=== PATIENT | female | born 1965 | race Caucasian/White ===

== ENCOUNTER 2024-03-14 12:28 | Emergency (ER) | payer OTHER, SELFPAY ==
--- NOTE | ~2024-03-14 | CT_ITS ---
EXAMINATION: CT abdomen pelvis wo con DATE: 03/14/2024 16:21 INDICATION: Recent liver transplant. Assess for bile leak. TECHNIQUE: Computed tomography (CT) of the abdomen and pelvis was performed without intravenous contr ast. Automated exposure control and iterative reconstruction technique were employed. The dose-length product was 714.69 mGy-cm. COMPARISON: None FINDINGS: Small right pleural effusion with discoid and round atelectasis at the right lung base. Calcified nod ules in the right lower lobe consistent with old granulomatous disease. Left lung bases clear. Mild c ardiomegaly. There are some mitral annular calcific lesion. No pericardial effusion. Postoperative ch anges in right upper quadrant consistent with reported relatively recent liver transplant and associa yeison cholecystectomy. No suggestion of intrahepatic biliary ductal dilation. Splenomegaly measuring 13 .6 cm maximal craniocaudal length and 15.8 cm maximal AP length. There are paraesophageal and left sp lenorenal collaterals which along with the splenomegaly is consistent with portal venous hypertension which may have preceded the liver transplantation. Pancreas, bilateral adrenal glands and kidneys ar e normal. There is a small bowel anastomosis in the left upper quadrant. No abnormal bowel wall thick ening or obstruction. Normal appendix. Bladder is normal. The uterus is not identified and has likely been surgically resected. There is a minimal amount of ascites along the caudal margin of the right hepatic lobe with small amount of ascites in the deep pelvis. No abscess or free intraperitoneal gas. No pathologically enlarged abdominal or pelvic lymphadenopathy. Small hemangioma at the right side o f the L3 vertebral body. Mild to moderate lumbar and lower thoracic spondylosis. IMPRESSION: 1. Postoperative change of relatively recent hepatic transplantation with minimal perihepatic ascites and small amount of ascites in the deep pelvis. Although the amount of fluid is relatively small cou ld not exclude a bile leak. If there is continued clinical concern consider HIDA scan for further juan m luation. 2. Small right pleural effusion with moderate associated atelectasis at the right lung base. 3. Splenomegaly and paraesophageal and splenorenal collaterals consistent with portal venous hyperten demetrio which may have preceded the transplantation. Reviewed, dictated and finalized at location A. IMPRESSION: 1. Postoperative change of relatively recent hepatic transplantation with minim al perihepatic ascites and small amount of ascites in the deep pelvis. Although the amount of fluid is relatively small could not exclude a bile leak. If ther e is continued clinical concern consider HIDA scan for further evaluation. 2. Small right pleural effusion with moderate associated atelectasis at the rig ht lung base. 3. Splenomegaly and paraesophageal and splenorenal collaterals consistent with portal venous hypertension which may have preceded the transplantation.
[2024-03-14 12:34] VITALS: BP 133/76; PULSE 89; RESP 20; TEMP 36.7; O2SAT 100
[2024-03-14 13:29] LABS: Basophils Absolute Auto 0.1 K/mm3 (0.0-0.1); Basophils Percent Auto 0.8 % (0.2-1.2); Eosinophils Absolute Auto 0.2 K/mm3 (0-0.3); Eosinophils Percent Auto 2.5 % (0-4.4); Hematocrit 31.9 % (37.0-47.0); Hemoglobin 10.3 g/dL (12.0-15.0); Immature Granulocyte Absolute 0.07 K/mm3 (0.00-0.031); Immature Granulocyte Percent A 0.9 % (0-0.5); Lymphocytes Absolute Auto 1.21 K/mm3 (0.9-3.2); Lymphocytes Percent Auto 15.4 % (18.3-44.2); Mean Corpuscular HGB Conc 32.3 g/dl (32-36); Mean Corpuscular Hemoglobin 30.5 pg (26-34); Mean Corpuscular Volume 94.4 fl (80-100); Mean Platelet Volume 10.4 fl (7.4-10.4); Monocytes Absolute Auto 0.5 K/mm3 (0.1-0.6); Monocytes Percent Auto 6.4 % (2.6-8.5); Neutrophils Absolute Auto 5.8 K/mm3 (1.3-6.7); Platelet Count Result 144 k/mm3 (150-375); Red Blood Count 3.38 M/mm3 (4.2-5.4); Red Cell Distribution Width 15.3 % (11.5-14.5); White Blood Count 7.9 K/mm3 (4.5-10.0)
[2024-03-14 13:48] LABS: Alanine Aminotransferase 33 U/L (6-35); Albumin Level 4.4 g/dL (3.5-5.1); Alkaline Phosphatase 81 U/L (38-126); Anion Gap 10 mmol/L (4-12); Aspartate Amino Transferase 47 U/L (14-36); Bilirubin,Total 1.2 mg/dL (0.2-1.3); Blood Urea Nitrogen 21 mg/dL (7-17); Calcium 9.8 mg/dL (8.4-10.2); Carbon Dioxide 20 mmol/L (22-30); Chloride 109 mmol/L (98-107); Estimated CRCL calculation 46 ml/min; Estimated Glomerular Filt Rate 46; Glucose 100 mg/dL (65-110); Lipase 68 U/L (23-300); Potassium 3.8 mmol/L (3.4-5.0); Sodium 139 mmol/L (137-145)
[2024-03-14 13:57] LABS: Appearance Urine Cloudy (Clear); Bacteria Urine 1+ /hpf; Bilirubin Urine 1+ (Negative); Blood Urine Negative (Negative); Color Urine Dark Yellow (Yellow); Glucose Urine UA Negative (Negative); Ketones Urine Trace mg/dL (Negative); Leukocyte Esterase Ur Trace LEU/UL (Negative); Need Manual Microscopic Reviewed; Nitrate Urine Negative (Negative); Protein Urine 1+ mg/dL (Negative); Specific Grav Ur 1.022 (1.001-1.035); Squamous Epithelial Cell Urine Moderate /hpf (Few); WBC Urine 0-5 /hpf (0-3); pH Urine 5.5 (5.0-9.0)
[2024-03-14 13:59] LABS: Add Urine Microscopic? YES
--- NOTE | 2024-03-14 14:06 | ED.NAVMDI ---
HPI - Nausea/Vomiting/Diarrhea General Chief complaint: Nausea/Vomiting/Diarrhea Stated complaint: nausea vomitting, headache Time Seen by Provider: 03/14/24 12:55 Source: patient and family ( ) Mode of arrival: ambulatory Limitations: no limitations History of Present Illness HPI Narrative: 59-year-old female presents with multiple symptoms. She is status post liver transplant approximately 5 weeks ago at [facility] due to alpha 1 anti trypsin deficiency. Ever since discharge she has had significant nausea such that he been thinking about food or seeeing it on the television makes her nauseated. Yesterday she had 2 episodes of nonbloody nonbilious emesis as well as other episodes of dry heaving. She has also had headache for the past 3 days, particularly behind her left eye. She did take an oxycodone this morning that helped. no sick contacts Or house members with similar symptoms. No acute vision changes. No photophobia or phonophobia. Patient is not on anticoagulation. Patient denies any trauma. She has had decreased p.o. intake. She had been told she was not to take ibuprofen as she has some underlying kidney dysfunction and did require temporary dialysis in the posttransplant period but not currently. She denies any fevers. She has been taking her immunosuppression medication which includes tacrolimus, mycophenolate, Bactrim, and prednisone although she states she did not take it yet today given her degree of nausea. She has been having some night sweats and chills. Her transplant surgeon is Dr. Coreas. Patient states she feels weak. States she was told this nausea was normal in the post op period but She is asking about medications that can help stimulate appetite. . Related Data Allergies Allergy/AdvReac Type Severity Reaction Status Date / Time No Known Allergies Allergy Verified 03/14/24 13:48 PMFSH Past Medical History Medical History [id number] deficiency Surgical History Surgical History Liver transplanted January 2024, [facility]; Surgeon Dr Coreas Social History Social History Living arrangements: with family Additional living arrangements comments: Exam Narrative: GENERAL: well-nourished, and in no acute distress though appears tired. HEAD: Normocephalic, atraumatic. EYES: Non injected, EOMI. Pupils grossly normal. ENT: Nares clear, no rhinorrhea or epistaxis. Tacky mucous membranes NECK: Supple. CHEST: Speaking in full sentences. No respiratory distress. HEART: Regular rate and rhythm. ABDOMEN: Soft, nondistended. Well healing large upper abdominal scar with steristrips. No induration, purulent discharge, erythema. No tenderness to palpation. No rigidity/guarding. Not peritoneal. EXTREMITIES: Normal range of motion. No edema. SKIN: Warm, dry, no rash. NEURO: No focal deficits. Alert and oriented x3. PSYCH: Normal mood and affect. Course Vital Signs Vital signs: Vital Signs Temperature 98.1 F 03/14/24 12:34 Pulse Rate 89 03/14/24 12:34 Respiratory Rate 20 03/14/24 12:34 Blood Pressure 133/76 03/14/24 12:34 Pulse Oximetry 100 03/14/24 12:34 Oxygen Delivery Room Air 03/14/24 12:34 Temperature 98.1 F 03/14/24 12:34 Pulse Rate 78 03/14/24 16:31 Respiratory Rate 20 03/14/24 16:31 Blood Pressure 130/79 03/14/24 16:31 Pulse Oximetry 100 03/14/24 16:31 Oxygen Delivery Room Air 03/14/24 12:34 MDM - Nausea/Vomiting/Diarrhea MDM Narrative Medical decision making narrative: Patient Is a 59-year-old female with history of alpha-1 antitrypsin deficiency status post liver transplant through [facility] approximately 5 weeks ago. Presents with persistent nausea, 2 episodes of NBNB emesis yesterday, and a headache of 3 days duration though improving a
[2024-03-14] MEDS: KETOROLAC 15 MG/ML VIAL (*BKC) IV PUSH (14:16)
[2024-03-14] MEDS: PROCHLORPERAZINE EDISYLATE 10 MG/2 ML VIAL 5 MG IV PUSH (14:17)
[2024-03-14] MEDS: ONDANSETRON INJ 4 MG/2 ML VIAL IV PUSH (14:17)
[2024-03-14] MEDS: DEXTROSE 5%/LACTATED RINGERS 1,000 ML 500 ML IV CONT (14:17)
[2024-03-14 14:27] LABS: Magnesium 1.5 mg/dL (1.6-2.3)
[2024-03-14 14:33] VITALS: BP 132/62; PULSE 89; RESP 17; O2SAT 99
[2024-03-14 14:55] LABS: Influenza A QL RT-PCR Negative (Negative); Influenza B QL RT-PCR Negative (Negative); SARS-CoV-2 RNA PCR Negative (Negative)
[2024-03-14] MEDS: MAGNESIUM SULF 1 GM/D5W 100 ML 1 GM/100 ML BAG IVPB (15:18)
[2024-03-14 16:31] VITALS: BP 130/79; PULSE 78; RESP 20; O2SAT 100
[2024-03-14 17:01] LABS: Anion Gap 7 mmol/L (4-12); Blood Urea Nitrogen 21 mg/dL (7-17); Calcium 9.1 mg/dL (8.4-10.2); Carbon Dioxide 21 mmol/L (22-30); Chloride 109 mmol/L (98-107); Estimated CRCL calculation 50 ml/min; Estimated Glomerular Filt Rate 50; Glucose 208 mg/dL (65-110); Potassium 3.7 mmol/L (3.4-5.0); Sodium 137 mmol/L (137-145)
== END 2024-03-14 17:38 | disposition home or self-care (01) ==
PROVIDERS: Emergency Provider Student in an Organized Health Care Education/Training Program
DX: R11.2 Nausea with vomiting, unspecified (principal); R51.9 Headache, unspecified; D64.9 Anemia, unspecified; J90 Pleural effusion, not elsewhere classified; R18.8 Other ascites; K76.6 Portal hypertension; N18.9 Chronic kidney disease, unspecified; Z94.4 Liver transplant status; E88.01 Alpha-1-antitrypsin deficiency; Z20.822 Contact with and (suspected) exposure to COVID-19
CPT/HCPCS: 36415; 74176; 80048; 80053; 81001; 83690; 83735; 85025; 87636; 96361; 96365; 96366; 96375; 99284; J0780; J1885; J2405; J3475; J7121

== ENCOUNTER 2025-02-21 13:18 | Emergency (ER) | payer OTHER, SELFPAY ==
[2025-02-21] VITALS (51 sets, daily range): BP systolic 108–169; BP diastolic 65–131; PULSE 72–87; RESP 16–18; TEMP 36.4; O2SAT 94–100
--- NOTE | ~2025-02-21 | CT_ITS ---
EXAMINATION: CTA chest PE abdomen pel DATE: 02/21/2025 16:18 INDICATION: pleuritic pain, +dimer, RUQ pain TECHNIQUE: Computed tomography angiography (CTA) of the chest was performed with 100 mL Omnipaque-350 intravenous contrast timed to evaluate the pulmonary arteries, followed by portal venous phase imagi ng of the abdomen and pelvis. Coronal maximum intensity projection 3D-reconstructions were created by the technologist. The dose-length product (DLP) was 672.04 mGy-cm. Automated exposure control and it erative reconstruction technique were employed. COMPARISON: 03/14/2024. FINDINGS: CHEST: Lung parenchyma and airways: 3 mm right middle lobe pulmonary nodule (image 70/118). Scattered granul omatous calcifications. Nodular opacity in the peripheral right lower lobe measuring 2.3 cm (image 81 /118), with morphology suggests rounded atelectasis, additionally a region of rounded atelectasis cla ssic appearance was present in this location the prior study. Right basilar scarring. Pleura: Trace right pleural fluid. Thoracic inlet, axillae and chest wall: No thyroid or soft tissue mass. Thoracic aorta: No significant dilation. No dissection. Mediastinum: Normal. Heart and pericardium: Mild cardiomegaly. No significant pericardial effusion. Mitral calcification . Coronary artery calcifications: Mild. Thoracic bones: No acute osseous finding. Pulmonary arteries: Study quality: Adequate. No pulmonary emboli detected. ABDOMEN/PELVIS: Liver: Status post liver transplant. Periportal edema. Axial mild intrahepatic bile duct dilation, pr edominantly in the right liver lobe. Mild dilation of the common bile duct. Wall enhancement of the c ommon bile duct. Biliary stent in the common bile duct extending into the duodenum and terminating at the junction of the third and fourth portions of the duodenum Biliary/Gallbladder: Gallbladder is absent. No bile duct dilation. Pancreas: No mass or duct dilation. Spleen: Markedly enlarged spleen. Enhancing 13 mm rounded structure at the hilum of the spleen (image 57/210), which appears to be associated with adjacent arterial vessels. Rim calcified, nonenhancing structure along the medial and inferior aspect of the spleen, possibly associated with adjacent vesse ls. Adrenals:No mass. Kidneys: No suspicious mass, obstructing stone, or hydronephrosis. GI tract: Moderate distal esophageal and gastric wall edema. Uncomplicated small bowel anastomosis. N o small or large bowel dilation. Normal appendix. Mesentery/Peritoneum: No ascites, mass, or free air. Upper abdominal varices. Retroperitoneum: No mass. Pelvis: Partially distended, unremarkable urinary bladder. Uterus is likely surgically absent. Bilate ral ovaries not confidently identified. Small volume fluid in the deep pelvis. Soft Tissues: Soft tissues and body wall unremarkable. Abdominopelvic bones: No acute osseous finding. IMPRESSION: No CT evidence of acute pulmonary embolus. Presumed rounded atelectasis in the peripheral right lower lobe. Consider CT of the chest in 3 months to evaluate for persistence/resolution. 3 mm right middle lobe pulmonary nodule, likely granuloma. Trace right pleural effusion. Changes of liver transplant. Mild intrahepatic right liver lobe or duct dilation and common duct dila tion, with a biliary stent or drain in place. Moderate esophagitis/gastritis. Periportal edema, mild inflammatory changes the chary hepatis, and common bile duct wall hyperemia, c orrelate with biliary and pancreatic labs. Consider cholangitis in the differential. Marked splenomegaly. Possible 13 mm splenic artery aneurysm. 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 Small volume pelvic ascites. Reviewed, dictated and finalized at location K. IMPRESSION: No CT evidence of acute pulmonary embolus. Presumed rounded atelectasis in the peripheral right lower lobe. Consider CT of the chest in 3 months to evaluate for persistence/resolution. 3 mm right middle lobe pulmonary nodule, likely granuloma. Trace right pleural effusion. Changes of liver transplant. Mild intrahepatic right liver lobe or duct dilatio n and common duct dilation, with a biliary stent or drain in place. Moderate esophagitis/gastritis. Periportal edema, mild inflammatory changes the chary hepatis, and common bile duct wall hyperemia, correlate with biliary and pancreatic labs. Consider chola ngitis in the differential. Marked splenomegaly. Possible 13 mm splenic artery aneurysm. Possible 2.7 cm thrombosed hepatic melissa ry aneurysm. Small volume pelvic ascites.
[2025-02-21 15:05] LABS: Basophils Percent Auto 0.4 % (0.2-1.2); Eosinophils Absolute Auto 0.1 K/mm3 (0-0.3); Eosinophils Percent Auto 3.4 % (0-4.4); Hemoglobin 12.6 g/dL (12.0-15.0); Immature Granulocyte Absolute 0.02 K/mm3 (0.00-0.031); Immature Granulocyte Percent A 0.8 % (0-0.5); Lymphocytes Absolute Auto 0.55 K/mm3 (0.9-3.2); Lymphocytes Percent Auto 23.1 % (18.3-44.2); Mean Corpuscular HGB Conc 31.5 g/dl (32-36); Mean Corpuscular Hemoglobin 28.5 pg (26-34); Mean Corpuscular Volume 90.5 fl (80-100); Mean Platelet Volume 9.2 fl (7.4-10.4); Monocytes Absolute Auto 0.2 K/mm3 (0.1-0.6); Monocytes Percent Auto 7.1 % (2.6-8.5); Neutrophils Absolute Auto 1.6 K/mm3 (1.3-6.7); Neutrophils Percent Auto 65.2 % (45.5-73.1); Platelet Count Result 105 k/mm3 (150-375); Red Blood Count 4.42 M/mm3 (4.2-5.4); Red Cell Distribution Width 14.2 % (11.5-14.5); White Blood Count 2.4 K/mm3 (4.5-10.0)
--- NOTE | 2025-02-21 15:11 | ED_ITS ---
HPI - Abdominal Pain General Chief Complaint: Abdominal Pain <JED Roberts Last Filed: 02/21/25 22:47> Stated Complaint: right side abd pain hx liver transplant <JED Roberts Last Filed: 02/21/25 22:47> Time Seen by Provider: 02/21/25 14:46 <JED Roberts Last Filed: 02/21/25 22:47> Source: patient <JED Roberts Last Filed: 02/21/25 22:47> Mode of arrival: ambulatory <JED Roberts Last Filed: 02/21/25 22:47> Limitations: no limitations <JED Roberts Last Filed: 02/21/25 22:47> History of Present Illness HPI narrative: Patient is a 60-year-old female, with past medical history of liver transplant in January 2024 on tacrolimus, who presents the ED with report of upper abdominal pain. Patient reports she has had multiple biliary stents due to abnormality of her ducts after the liver transplant. She had her stents replaced on 01/29 and they had to use a larger sized stents than previous. Patient reports over the past few weeks she has been having pain throughout her epigastric region and right upper quadrant. Pain has become worse over the last 1 week. She has contacted her liver specialist, Dr. Dockery @ [facility], who thought pain may be r/t acid reflux. She has been taking Tums without improvement. Has not tried anything further for pain. Pain is constant. Worse with deep breathing. No aggravation with eating. Denies nausea, vomiting, diarrhea, constipation, shortness of breath, chest pain, fevers. <JED Roberts Last Filed: 02/21/25 22:47> Related Data Allergies/Adverse Reactions: Allergies Allergy/AdvReac Type Severity Reaction Status Date / Time No Known Allergies Allergy Verified 02/21/25 13:19 <JED Roberts Last Filed: 02/21/25 22:47> Review of Systems 2 Review of Systems: All systems reviewed & are unremarkable except as noted in HPI. <Jovanna Zhu PA-C - Last Filed: 02/21/25 22:47> All systems reviewed & are unremarkable except as noted in HPI and below < Jovanna Zhu PA-C - Last Filed: 02/21/25 22:47> PMFSH Past Medical History Medical History: Medical History [id number] deficiency <Jovanna Zhu PA-C - Last Filed: 02/21/25 22:47> Surgical History Surgical History: Surgical History Liver transplanted January 2024, [facility]; Surgeon Dr Coreas <Jovanna Zhu PA-C - Last Filed: 02/21/25 22:47> Social History Social History: Social History Living arrangements: with family Additional living arrangements comments: <Jovanna Zhu PA-C - Last Filed: 02/21/25 22:47> Exam 2 Narrative: GENERAL: Mildly uncomfortable appearing, well-nourished, non-toxic, in no acute distress. HEAD: Normocephalic, atraumatic. RESPIRATORY: Airway patent, respirations nonlabored. Clear to auscultation bilaterally, no rales, rhonchi, wheezing. CARDIOVASCULAR: Regular rate and rhythm without murmurs, rubs, or gallops. ABDOMINAL: Soft, mild tenderness in periumbilical region, epigastric region, right upper quadrant. No significant rebound. Nondistended. Normoactive BS. MUSCULOSKELETAL: Moves all extremities. No gross deformities. SKIN: Warm, dry, normal color. NEURO: A&O X3. Speech clear. No ataxic movements. PSYCHIATRIC: Appropriate mood and affect. Normal interaction. <Jovanna Zhu PA-C - Last Filed: 02/21/25 22:47> Course METAL TEMPLATE MAKER/PA Physician Supervision For this patient encounter, I reviewed the METAL TEMPLATE MAKER or PA documentation, treatment plan, and medical decision making; and I had [id number] time with this patient. <Chris Shahid MD - Last Filed: 02/22/25 19:05> Vital Signs Vital signs: Vital Signs Temperature 97.6 F 02/21/25 13:26 Pulse Rate 87 02/21/25 13:26 Respiratory Rate 16 02/21/25 13:26 Blood Pressure 129/84 02/21/25 13:26 Pulse Oximetry 98 02/21/25 13:26 Temperature 97.6 F 02/21/25 13:26 Pulse Rate 71 02/22/25 00:48 Respiratory Rate 14 02/22/25 00:48 Blood Pressure 101/64 02/22/25 00:48 Pulse Oximetry 97 02/22/25 00:48 <RODOLFO RobertsC - Last Filed: 02/21/25 22:47> Vital Signs Temperature 97.6 F 02/21/25 13:26 Pulse Rate 87 02/21/25 13:26 Respiratory Rate 16 02/21/25 13:26 Blood Pressure 129/84 02/21/25 13:26 Pulse Oximetry 98 02/21/25 13:26 Temperature 97.6 F 02/21/25 13:26 Pulse Rate 71 02/22/25 00:48 Respiratory Rate 14 02/22/25 00:48 Blood Pressure 101/64 02/22/25 00:48 Pulse Oximetry 97 02/22/25 00:48 <Chris Shahid MD - Last Filed: 02/22/25 19:05> MDM - Abdominal Pain MDM Narrative Medical decision making narrative: Patient presented to ED with week history of epigastric and right upper quadrant abdominal pain. History of liver transplant last year with recent biliary stent replacement. Vital signs are stable upon arrival. Patient mildly uncomfortable appearing, but not in distress. Pain controlled ordered. She is afebrile here. Cbc with blood cell count 2.4. H&H is stable. Platelets 105. No recent records to compare to. CMP w/ stable electrolytes, stable kidney function. Lactic acid WNL. AST 46. ALT 42. Alk-phos 314. Total bili within normal range. Lipase within normal range. EKG with NSR, no concerning ST changes. Troponin undetectable. D-dimer elevated to 1.16. UA with trace ketones, no signs of infection. CTA chest w/ abd/pelvis obtained and without evidence of PE. Does show right- sided lung atelectasis and pulmonary nodule, trace pleural effusion. Numerous abdominal findings noted, moderate gastritis, mild right-sided intrahepatic duct dilation, common duct dilation, biliary stent in place, periportal edema, inflammatory changes support hepatics, hyperemia of common bile duct wall. Also showing splenomegaly, splenic artery aneurysm, thrombosis hepatic artery aneurysm. Small volume pelvic ascites. No recent imaging here to compare this to. Unclear if these findings are related to transplant or new. Discussed case with Dr. Raymundo, GI/hepatology fellow @ [facility], discussed imaging findings, advised low threshold to be seen by transplant team. If patient still having symptoms/pain/feeling unwell, recommended transfer for urgent evaluation by team. Patient did report improvement with pain medication in the ED, but reports that her pain is already returning. Will be transferred for further evaluation management. Patient is in agreement with this plan and transfer. Accepted under Dr. Hazel. Patient received bed at [facility]. Awaiting transport. Resting comfortably at this time. <Jovanna Zhu PA-C - Last Filed: 02/21/25 22:47> Medical Records Attestation: I reviewed the patient's medical records. <Jovanna Zhu PA-C - Last Filed: 02/21/25 22:47> Lab Data Attestation: I reviewed the patient's lab results. <Jovanna hZu PA-C - Last Filed: 02/21/25 22:47> Result diagrams: 02/21/25 15:00 02/21/25 15:00 <Jovanna Zhu PA-C - Last Filed: 02/21/25 22:47> Labs: Lab Results 02/21/25 02/21/25 02/21/25 Range/Units 15:00 15:08 15:33 WBC 2.4 L (4.5-10.0) K/mm3 RBC 4.42 (4.2-5.4) M/mm3 Hgb 12.6 (12.0-15.0) g/dL Hct 40.0 (37.0-47.0) % MCV 90.5 (80-100) fl MCH 28.5 (26-34) pg MCHC 31.5 L (32-36) g/dl RDW 14.2 (11.5-14.5) % Plt Count 105 L (150-375) k/mm3 MPV 9.2 (7.4-10.4) fl Immature Gran % (Auto) 0.8 H (0-0.5) % Neut % (Auto) 65.2 (45.5-73.1) % Lymph % (Auto) 23.1 (18.3-44.2) % [place] % (Auto) 7.1 (2.6-8.5) % Eos % (Auto) 3.4 (0-4.4) % Baso % (Auto) 0.4 (0.2-1.2) % Lymph # (Auto) 0.55 L (0.9-3.2) K/mm3 [place] # (Auto) 0.2 (0.1-0.6) K/mm3 Eos # (Auto) 0.1 (0-0.3) K/mm3 Baso # (Auto) 0.0 (0.0-0.1) K/mm3 Abs Immat Gran (auto) 0.02 (0.00-0.031) K/mm3 Absolute Neuts (auto) 1.6 (1.3-6.7) K/mm3 Absolute Nucleated RBC 0.000 (0.0-0.012) K/mm3 Nucleated RBC % 0.0 (0.0-0.2) % PT 13.1 (11.1-14.7) Seconds INR 1.0 APTT 28.8 (22.3-36.8) Seconds D-Dimer 1.16 H (<0.48) ug/mL Sodium 140 (137-145) mmol/L Potassium 4.8 (3.4-5.0) mmol/L Chloride 107 (98-107) mmol/L Carbon Dioxide 28 (22-30) mmol/L Anion Gap 5 (4-12) mmol/L BUN 19 H (7-17) mg/dL Creatinine 0.94 (0.7-1.0) mg/dL Estim Creat Clear Calc 54 ml/min Estimated GFR 60 (59 - ) Glucose 97 (65-110) mg/dL Lactic Acid 0.7 (0.7-2.0) mmol/L Calcium 9.0 (8.4-10.2) mg/dL Total Bilirubin 1.0 (0.2-1.3) mg/dL AST 46 H (14-36) U/L ALT 42 H (6-35) U/L Alkaline Phosphatase 314 H (38-126) U/L Troponin I < 0.012 (0.000-0.034) ng/mL Total Protein 8.0 (6.3-8.2) g/dL Albumin 3.7 (3.5-5.1) g/dL Lipase 80 (23-300) U/L Urine Color Dark yellow (Yellow) Urine Appearance Clear (Clear) Urine pH 5.5 (5.0-9.0) Ur Specific Amber 1.021 (1.001-1.035) Urine Protein Negative (Negative) mg/dL Urine Glucose (UA) Negative (Negative) mg/dL Urine Ketones Trace H (Negative) mg/dL Ur Blood (Man) Negative (Negative) Urine Nitrate Negative (Negative) Urine Bilirubin 1+ H (Negative) Urine Urobilinogen 1.0 (<2.0) mg/dL Leukocyte Esterase Rfl Negative (Negative) AMOL/UL <Jovanna Zhu PA-C - Last Filed: 02/21/25 22:47> Lab Results 02/21/25 02/21/25 02/21/25 Range/Units 15:00 15:08 15:33 WBC 2.4 L (4.5-10.0) K/mm3 RBC 4.42 (4.2-5.4) M/mm3 Hgb 12.6 (12.0-15.0) g/dL Hct 40.0 (37.0-47.0) % MCV 90.5 (80-100) fl MCH 28.5 (26-34) pg MCHC 31.5 L (32-36) g/dl RDW 14.2 (11.5-14.5) % Plt Count 105 L (150-375) k/mm3 MPV 9.2 (7.4-10.4) fl Immature Gran % (Auto) 0.8 H (0-0.5) % Neut % (Auto) 65.2 (45.5-73.1) % Lymph % (Auto) 23.1 (18.3-44.2) % [place] % (Auto) 7.1 (2.6-8.5) % Eos % (Auto) 3.4 (0-4.4) % Baso % (Auto) 0.4 (0.2-1.2) % Lymph # (Auto) 0.55 L (0.9-3.2) K/mm3 [place] # (Auto) 0.2 (0.1-0.6) K/mm3 Eos # (Auto) 0.1 (0-0.3) K/mm3 Baso # (Auto) 0.0 (0.0-0.1) K/mm3 Abs Immat Gran (auto) 0.02 (0.00-0.031) K/mm3 Absolute Neuts (auto) 1.6 (1.3-6.7) K/mm3 Absolute Nucleated RBC 0.000 (0.0-0.012) K/mm3 Nucleated RBC % 0.0 (0.0-0.2) % PT 13.1 (11.1-14.7) Seconds INR 1.0 APTT 28.8 (22.3-36.8) Seconds D-Dimer 1.16 H (<0.48) ug/mL Sodium 140 (137-145) mmol/L Potassium 4.8 (3.4-5.0) mmol/L Chloride 107 (98-107) mmol/L Carbon Dioxide 28 (22-30) mmol/L Anion Gap 5 (4-12) mmol/L BUN 19 H (7-17) mg/dL Creatinine 0.94 (0.7-1.0) mg/dL Estim Creat Clear Calc 54 ml/min Estimated GFR 60 (59 - ) Glucose 97 (65-110) mg/dL Lactic Acid 0.7 (0.7-2.0) mmol/L Calcium 9.0 (8.4-10.2) mg/dL Total Bilirubin 1.0 (0.2-1.3) mg/dL AST 46 H (14-36) U/L ALT 42 H (6-35) U/L Alkaline Phosphatase 314 H (38-126) U/L Troponin I < 0.012 (0.000-0.034) ng/mL Total Protein 8.0 (6.3-8.2) g/dL Albumin 3.7 (3.5-5.1) g/dL Lipase 80 (23-300) U/L Urine Color Dark yellow (Yellow) Urine Appearance Clear (Clear) Urine pH 5.5 (5.0-9.0) Ur Specific Amber 1.021 (1.001-1.035) Urine Protein Negative (Negative) mg/dL Urine Glucose (UA) Negative (Negative) mg/dL Urine Ketones Trace H (Negative) mg/dL Ur Blood (Man) Negative (Negative) Urine Nitrate Negative (Negative) Urine Bilirubin 1+ H (Negative) Urine Urobilinogen 1.0 (<2.0) mg/dL Leukocyte Esterase Rfl Negative (Negative) AMOL/UL <Chris Shahid MD - Last Filed: 02/22/25 19:05> Imaging Data Attestation: I personally reviewed and interpreted this imaging study as follows: < Jovanna Zhu PA-C - Last Filed: 02/21/25 22:47> Radiologist's impression: ITS Impressions Chest/Abdomen/Pelvis CTA 02/21/25 17:35 IMPRESSION: No CT evidence of acute pulmonary embolus. Presumed rounded atelectasis in the peripheral right lower lobe. Consider CT of the chest in 3 months to evaluate for persistence/resolution. 3 mm right middle lobe pulmonary nodule, likely granuloma. Trace right pleural effusion. Changes of liver transplant. Mild intrahepatic right liver lobe or duct dilation and common duct dilation, with a biliary stent or drain in place. Moderate esophagitis/gastritis. Periportal edema, mild inflammatory changes the chary hepatis, and common bile duct wall hyperemia, correlate with biliary and pancreatic labs. Consider cholangitis in the differential. Marked splenomegaly. Possible 13 mm splenic artery aneurysm. 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 Small volume pelvic ascites. <Jovanna hZu PA-C - Last Filed: 02/21/25 22:47> ITS Impressions Chest/Abdomen/Pelvis CTA 02/21/25 17:35 IMPRESSION: No CT evidence of acute pulmonary embolus. Presumed rounded atelectasis in the peripheral right lower lobe. Consider CT of the chest in 3 months to evaluate for persistence/resolution. 3 mm right middle lobe pulmonary nodule, likely granuloma. Trace right pleural effusion. Changes of liver transplant. Mild intrahepatic right liver lobe or duct dilation and common duct dilation, with a biliary stent or drain in place. Moderate esophagitis/gastritis. Periportal edema, mild inflammatory changes the chary hepatis, and common bile duct wall hyperemia, correlate with biliary and pancreatic labs. Consider cholangitis in the differential. Marked splenomegaly. Possible 13 mm splenic artery aneurysm. 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 Small volume pelvic ascites. <Chris Shahid MD - Last Filed: 02/22/25 19:05> ECG Data EKG #1: Attestation: I personally reviewed and interpreted this ECG as follows: <JED Roberts Last Filed: 02/21/25 22:47> ECG completion date: 02/21/25 <JED Roberts Last Filed: 02/21/25 22:47> ECG completion time: 15:40 <JED Roberts Last Filed: 02/21/25 22:47> normal rate (71), sinus rhythm and non-specific ST changes <Jovanna Zhu PA-C - Last Filed: 02/21/25 22:47> Discharge Plan Discharge Clinical Impression: History of liver transplant, Common bile duct dilation, Dilated intrahepatic bile duct, Aneurysm of hepatic artery, Splenic artery aneurysm, Incidental pulmonary nodule Gastritis Qualifiers: Gastritis type: unspecified gastritis Chronicity: acute Gastritis bleeding: w ithout bleeding Qualified Code(s): K29.00 - Acute gastritis without bleeding <JED Roberts Last Filed: 02/21/25 22:47> Patient Disposition: Acute Care Hospital <Jovanna Zhu PA-C - Last Filed: 02/21/25 22:47> Condition: Stable <JED Roberts Last Filed: 02/21/25 22:47> Patient Language: Polish <JED Roberts Last Filed: 02/21/25 22:47> Prescriptions: No Action ondansetron 4 mg tablet,disintegrating 4 mg PO Q8H PRN (Reason: nausea and vomiting) Qty: 7 0RF <JED Roberts Last Filed: 02/21/25 22:47> Follow-up/Referrals: UNKNOWN,DOCTOR [Primary Care Provider] - <DALIA Roberts-C - Last Filed: 02/21/25 22:47>
[2025-02-21 15:14] LABS: Alanine Aminotransferase 42 U/L (6-35); Albumin Level 3.7 g/dL (3.5-5.1); Alkaline Phosphatase 314 U/L (38-126); Anion Gap 5 mmol/L (4-12); Aspartate Amino Transferase 46 U/L (14-36); Blood Urea Nitrogen 19 mg/dL (7-17); Carbon Dioxide 28 mmol/L (22-30); Chloride 107 mmol/L (98-107); Estimated CRCL calculation 54 ml/min; Estimated Glomerular Filt Rate 60; Glucose 97 mg/dL (65-110); Lipase 80 U/L (23-300); Potassium 4.8 mmol/L (3.4-5.0); Sodium 140 mmol/L (137-145)
[2025-02-21 15:15] LABS: Appearance Urine Clear (Clear); Bilirubin Urine 1+ (Negative); Blood Urine Negative (Negative); Color Urine Dark Yellow (Yellow); Glucose Urine UA Negative (Negative); Ketones Urine Trace mg/dL (Negative); Leukocyte Esterase Ur Negative LEU/UL (Negative); Nitrate Urine Negative (Negative); Protein Urine Negative (Negative); Specific Grav Ur 1.021 (1.001-1.035); pH Urine 5.5 (5.0-9.0)
--- NOTE | 2025-02-21 15:19 | ECG_ITS ---
Test Date: 2025-02-21 15:40:41 Measurements Intervals [place] Rate: 71 P: -73 LA: 124 QRS: 3 QRSD: 97 T: 31 QT: 375 QTc: 409 Interpretive Statements NORMAL SINUS RHYTHM NORMAL AXIS No previous ECG available for comparison Electronically Signed On 02-22-2025 16:02:43 CDT by Carlos Barahona
[2025-02-21 15:27] LABS: Add Urine Microscopic? NO
[2025-02-21] MEDS: ONDANSETRON INJ 4 MG/2 ML VIAL IV PUSH (15:34)
[2025-02-21] MEDS: FAMOTIDINE 20 MG/2 ML VIAL IV PUSH (15:34)
[2025-02-21] MEDS: MORPHINE SULFATE (*CRX) 4 MG/ML INJ IV PUSH (15:34)
[2025-02-21 15:39] LABS: Prothrombin Time 13.1 Seconds (11.1-14.7)
[2025-02-21 15:40] LABS: Partial Thromboplastin Time 28.8 Seconds (22.3-36.8)
[2025-02-21 15:47] LABS: Troponin I < 0.012 ng/mL (0.000-0.034)
[2025-02-21 15:48] LABS: Lactic Acid Reflex 0.7 mmol/L (0.7-2.0)
[2025-02-21 15:52] LABS: D Dimer 1.16 ug/mL (<0.48)
--- OUTSIDE RECORDS SUMMARY | 2025-02-21 16:35 | XMS_ITS | Encounter Summary ---
Author Organization [facility] Address [address] [place] [address] Care Team Providers Care Resource Manager Name Role Phone Pacheco Hyman MD Unavailable [phone] Allegra Mejias STITCHING MACHINE OPERATOR-AUTO DAMAGE TRAINEE Unavailable Nikia Fishman STITCHING MACHINE OPERATOR-AUTO DAMAGE TRAINEE Primary Care Provider + Rickie Dejesus MD Unavailable Reason for Visit * Reason Onset Date Comments MEDICATION REFILL 01/16/2024 Encounter Details Date Type Department Care Team (Late st Contact Info) Description 01/16/2024 Refill [facility] - [place] [address] [place] [address], [place] [phone] Brian Wheeler MD [address] [place] [address] OF GASTROENTEROLOGY [place], [place] [phone] MEDICATION REFILL Social History Tobacco Use Types Packs/Day Years Used Date Smoking Tobacco: Former Cigarettes 1.5 15 0 1978 - 1993 Smokeless Tobacco: Never Alcohol Use Standard Drinks/Week Comments Not Currently 0 (1 standard drink = 0.6 oz pur e alcohol) last many years AUDIT-C Answer Date Recorded Q1: How often do you have a drink containing alcohol? Never 10/23/2023 Q2: How many drinks containi ng alcohol do you have on a typical day when you are drinking? Patient does not drink Q3: How often do you have si x or more drinks on one occasion? Never 10/23/2023 Overall Financial Resource Strain (CARDIA) Answe r Date Recorded How hard is it for you to pa y for the very basics like food, housing, medical care, and heating? Not hard at all 10/25/2023 PHQ-2 Answer Date Recorded Patient Health Questionnaire-2 Score 0 11/30/2023 [facility] [place] of Occupat ional Health - Occupational Stress Questionnaire Answer Date Recorded Do you feel stress - tense, restless, nervous, or anxious, or unable to sleep at night because your mind is troubled all the time - these days? Only a little 10/25/2023 Hunger Vital Sign Answer Date Recorded Within the past 12 months, y ou worried that your food would run out before you got the money to buy more. Never true 10/25/19 24 Within the past 12 months, t he food you bought just didn't last and you didn't have money to get more. Never true 10/25/2023 PRAPARE - Transportation Answer Date Re corded In the past 12 months, has l ack of transportation kept you from medical appointments or from getting medications? No 01/2024 In the past 12 months, has l ack of transportation kept you from meetings, work, or from getting things needed for daily living? No 10/25/2023 Housing Stability Vital Sign Answer Trevin e Recorded In the last 12 months, was t here a time when you were not able to pay the mortgage or rent on time? No 10/25/2023 In the last 12 months, how many places have you lived? 1 10/25/2023 In the last 12 months, was t here a time when you did not have a steady place to sleep or slept in a senior care (including now)? 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 Answer Date of Assessment Author No 10/23/2023 11:51 PM Skylar Mackenzie RN * Is person blind or have serious difficulty seeing? Answer Date of Assessment Author No 10/23/2023 11:51 PM Skylar Mackenzie RN * Does person have serious difficulty walking/climbing stairs? Answer Date of Assessment Author No 10/23/2023 11:51 PM Skylar Mackenzie RN * Does person have difficulty dressing/bathing? Answer Date of Assessment Author No 10/23/2023 11:51 PM Skylar Mackenzie RN * Does person have difficulty doing errands alone? Answer Date of Assessment Author No 10/23/2023 11:51 PM Skylar Mackenzie RN documented as of this encounter Mental Status * Does person have difficulty concentrating/remembering/making decisions? Answer Entry Date Author No 10/23/2023 11:51 PM Skylar Mackenzie RN documented in this encounter Plan of Treatment Upcoming Encounters Date Type Department Care Team (Latest Contact Info) Description 03/17/2025 10:00 AM CDT Office Visit [facility] - Hematology/Oncol [facility] [address] [place] [address] Loida Veras MD [address] [place] [phone] 03/26/2025 3:40 PM CDT Appointment [facility] CAT SCAN [address] [place] [phone] Brian Wheeler MD [address] [place] [address] 2L [facility] [place] [address] 04/08/2025 10:00 AM CDT Office Visit [facility] - Dermatology [address] [place] [address], [place] [phone] [place] [address] [place] [address] 3L Dept [place] [phone] 04/27/2025 8:30 AM CDT Office Visit [facility] [place] [address] [place] [address] [place] [address] Brian Wheeler MD [address] [place] [address] 2L [place] [address] 05/07/2025 11:00 AM CDT Hospital Encounter [facility] ENDOSCOPY [address] [place] [address] Stas Aceves MD [address] [place] [phone] Surgery General 05/07/2025 11:00 AM CDT - 05/07/2025 12:00 PM CDT Surgery [facility] ENDOSCOPY [address] [place] [phone] Stas Aceves MD [address] [place] [phone] ENDOSCOPIC RETROGRADE CHOLANGIOPANCREATOGRAPHY (ERCP) 05/11/2025 6:30 AM CDT Appointment [facility] MRI [address] [place] [address] Brian Wheeler MD [address] [place] [address] 2L [place] [address] 05/21/2025 11:00 AM CDT Hospital Encounter [facility] ENDOSCOPY [address] [place] [phone] Brian Wheeler MD [address] [place] [address] 2[address] [place] [address] Surgery General 05/21/2025 11:00 AM CDT - 05/21/2025 11:45 AM CDT Surgery [facility] ENDOSCOPY [address] [place] [phone] Brian Wheeler MD [address] [place] [address] 2L [facility] [place] [address] COLONOSCOPY SCREEN w/ wheeler 06/03/2025 9:00 AM CDT Office Visit [facility] - Internal Med [address] [place] [address], [place] [phone] Nikia Fishman APRN-CNP [address] [place] [phone] Scheduled Procedures Name Priority Associated Diagnoses Date/Ti me ENDOSCOPIC RETROGRADE CHOLANGIOPANCREATOGRAPHY (ERCP) Encounter for removal of biliary stent 05/07/2025 11:00 AM CDT COLONOSCOPY SCREEN Screen for colon cancer 05/21/2025 11:00 AM CDT documented as of this encounter Goals Goal Patient Goal Type Associated Problems Recent Progress Patient-Stated? Author Medication Management General On track( 025 2:37 PM CDT) Darlene Ellis, RN Note: Expected end date: ongoing Interventions: Take all medications as prescribed Let your doctor know right away about any changes in your medications Make sure to request a refill of your medication at least one week prior to your last dose documented as of this encounter Visit Diagnoses Not on filedocumented in this encounter Additional Health Concerns Infection Onset Date Last Indicated Resolved Time COVID-19 Under Investigation 02/08/2024 02/08/2024 02/08/2024 10:40 AM CDT COVID-19 Under Investigation 04/25/2024 04/25/2024 04/25/2024 7:52 PM CDT CDIFF Under Investigation 04/26/2024 04/26/2024 11:40 AM CDT COVID-19 Under Investigation 07/24/2024 07/24/2024 07/25/2024 3:44 AM CDT documented as of this encounter Care Teams Resource Manager Relationship Specialty Start Date End Date Nikia Fishman APRN-AUTO DAMAGE TRAINEE [address] [place] [phone] PCP - General Nurse Practitioner 10/23/23 Pacheco Hyman MD Public Affairs Specialist/Oncologist Hematology and Oncology 03/21/19 Allegra Mejias, STITCHING MACHINE OPERATOR-AUTO DAMAGE TRAINEE [address] [address] Advance Practice Nurse Hematology and Oncology 03/21/19 Rickie Dejesus MD [address] [address] Building Components Designer Pulmonary Disease 11/28/23 documented as of this encounter
--- OUTSIDE RECORDS SUMMARY | 2025-02-21 16:35 | XMS_ITS | Encounter Summary ---
Author Organization [facility] Address [address] [place] [address] Care Team Providers Care Body Shop Estimator Name Role Phone Pacheco Hyman MD Unavailable Allegra Mejias TOW TRUCK DISPATCHER-CERTIFIED NUCLEAR MEDICINE TECHNOLOGIST Unavailable [phone] Nikia Fishman TOW TRUCK DISPATCHER-CERTIFIED NUCLEAR MEDICINE TECHNOLOGIST Primary Care Provider + Rickie Dejesus MD Unavailable Reason for Referral * Radiology Services (Routine) - Open Specialty Diagnoses / Procedures Referred By Juan t Referred To Contact Diagnoses History of hepatocellular carcinoma Immunosuppressed status (HCC) S/P liver transplant (HCC) Procedures MRI Abdomen Wwo Contrast Brian Dockery MD [address] [facility] 2L [facility] [place] [address] Phone: tel: fax: Referral ID Status Reason Start Date Expiration Date Visits Re quested Visits Authorized [id number] Open 02/16/2025 02/16/2026 1 1 Encounter Details Date Type Department Care Team (Late st Contact Info) Description 02/16/2025 Orders Only [facility] 3L [address] [facility], [place] [phone] Desi Reinoso, MARISA History of hepatocellular carcinoma ; Immunosuppressed status (HCC); S/P liver transplant (HCC) Social History Tobacco Use Types Packs/Day Years Used Date Smoking Tobacco: Former Cigarettes 1.5 15 0 1978 - 1993 Smokeless Tobacco: Never Alcohol Use Standard Drinks/Week Comments Not Currently 0 (1 standard drink = 0.6 oz pur e alcohol) last many years AUDIT-C Answer Date Recorded Q1: How often do you have a drink containing alcohol? Never 09/26/2024 Q2: How many drinks containi ng alcohol do you have on a typical day when you are drinking? Patient does not drink Q3: How often do you have si x or more drinks on one occasion? Never 09/26/2024 Overall Financial Resource Strain (CARDIA) Answe r Date Recorded How hard is it for you to pa y for the very basics like food, housing, medical care, and heating? Not hard at all 09/26/2024 PHQ-2 Answer Date Recorded Patient Health Questionnaire-2 Score 0 12/02/2024 [facility] of Occupat ional [facility] - Occupational Stress Questionnaire Answer Date Recorded Do you feel stress - tense, restless, nervous, or anxious, or unable to sleep at night because your mind is troubled all the time - these days? Only a little 09/26/2024 Hunger Vital Sign Answer Date Recorded Within the past 12 months, y ou worried that your food would run out before you got the money to buy more. Never true 09/26/20 24 Within the past 12 months, t he food you bought just didn't last and you didn't have money to get more. Never true 09/26/2024 PRAPARE - Transportation Answer Date Re corded In the past 12 months, has l ack of transportation kept you from medical appointments or from getting medications? No 03/2024 In the past 12 months, has l ack of transportation kept you from meetings, work, or from getting things needed for daily living? No 09/26/2024 Housing Stability Vital Sign Answer Trevin e Recorded In the last 12 months, was t here a time when you were not able to pay the mortgage or rent on time? No 07/24/2024 In the last 12 months, how many places have you lived? 1 07/24/2024 In the last 12 months, was t here a time when you did not have a steady place to sleep or slept in a usp (including now)? No 07/24/2024 Housing Stability Vital Sign Answer Trevin e Recorded In the last 12 months, was t here a time when you were not able to pay the mortgage or rent on time? No 09/26/2024 In the past 12 months, how m any times have you moved where you were living? 1 09/26/2024 At any time in the past 12 m ont, were you homeless or living in a usp (including now)? 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 Answer Date of Assessment Author No 01/29/2025 12:55 PM CDT Brit Connors RN * Is person blind or have serious difficulty seeing? Answer Date of Assessment Author No 01/29/2025 12:55 PM WEST Brit Connors RN * Does person have serious difficulty walking/climbing stairs? Answer Date of Assessment Author No 01/29/2025 12:55 PM WEST Brit Connors RN * Does person have difficulty dressing/bathing? Answer Date of Assessment Author No 01/29/2025 12:55 PM WEST Brit Connors RN * Does person have difficulty doing errands alone? Answer Date of Assessment Author No 01/29/2025 12:55 PM WEST Brit Connors RN documented as of this encounter Mental Status * Does person have difficulty concentrating/remembering/making decisions? Answer Entry Date Author No 01/29/2025 12:55 PM Brit Arita RN documented in this encounter Plan of Treatment Upcoming Encounters Date Type Department Care Team (Latest Contact Info) Description 03/17/2025 10:00 AM CDT Office Visit [facility] - Hematology/Oncol [place] [address] [place] [address] Loida Veras MD [address] [place] [phone] 03/26/2025 3:40 PM CDT Appointment [facility] CAT SCAN [facility] [place] [address] Brian Dockery MD [address] [place] [address] 2L [place] [address] 04/08/2025 10:00 AM CDT Office Visit [facility] - Dermatology [address] [place] [phone] Quoc Willams MD [address] [place] [address] 3L [place] [address] 04/27/2025 8:30 AM CDT Office Visit [facility] - GI [address] [place] [phone] Brian Dockery MD [address] [place] [address] 2[address] [place] [address] 05/07/2025 11:00 AM CDT Hospital Encounter [facility] ENDOSCOPY [facility] [place] [address] Stas Aceves MD [address] [place] [address] Surgery General 05/07/2025 11:00 AM CDT - 05/07/2025 12:00 PM CDT Surgery [facility] ENDOSCOPY [facility] [place] [address] Stas Aceves MD [address] [place] [address] ENDOSCOPIC RETROGRADE CHOLANGIOPANCREATOGRAPHY (ERCP) 05/11/2025 6:30 AM CDT Appointment [facility] MRI [address] [place] [address] Brian Dockery MD [address] [place] [address] 2[address] [place] [address] 05/21/2025 11:00 AM CDT Hospital Encounter [facility] ENDOSCOPY [address] [place] [phone] Brian Dockery MD [address] [place] [address] 2[address] [place] [address] Surgery General 05/21/2025 11:00 AM CDT - 05/21/2025 11:45 AM CDT Surgery [facility] ENDOS[facility] [place] [address] Brian Dockery MD [address] [place] [address] 2[address] [place] [address] COLONOSCOPY SCREEN w/ liam 06/03/2025 9:00 AM CDT Office Visit [facility] - Internal Med [address] [place] [address], [place] [address] Nikia Fishman, TOW TRUCK DISPATCHER-CERTIFIED NUCLEAR MEDICINE TECHNOLOGIST [address] [place] [phone] Scheduled Orders Name Type Priority Associated Diagnoses Orde r Schedule MRI Abdomen Wwo Contrast Imaging Routine History of hepatocellular carcinoma Immunosuppressed status (HCC) S/P liver transplant (HCC) 1 Occurrences starting 02/16/2025 until 02/16/2026 Scheduled Procedures Name Priority Associated Diagnoses Date/Ti me ENDOSCOPIC RETROGRADE CHOLANGIOPANCREATOGRAPHY (ERCP) Encounter for removal of biliary stent 05/07/2025 11:00 AM CDT COLONOSCOPY SCREEN Screen for colon cancer 05/21/2025 11:00 AM CDT documented as of this encounter Goals Goal Patient Goal Type Associated Problems Recent Progress Patient-Stated? Author Medication Management General On track( 025 2:37 PM CDT) Darlene Ellis RN Note: Expected end date: ongoing Interventions: Take all medications as prescribed Let your doctor know right away about any changes in your medications Make sure to request a refill of your medication at least one week prior to your last dose documented as of this encounter Visit Diagnoses Diagnosis History of hepatocellular carcinoma- Primary Immunosuppressed status (HCC) Unspecified disorder of immune mechanism S/P liver transplant (HCC) Liver replaced by transplant Encounter for removal of biliary stent Screen for colon cancer Special screening for malignant neoplasms, colon documented in this encounter Care Teams Body Shop Estimator Relationship Specialty Start Date End Date Nikia Fishman APRN-CERTIFIED NUCLEAR MEDICINE TECHNOLOGIST [address] [phone] PCP - General Nurse Practitioner 10/23/23 Pacheco Hyman MD Interior Plant Caretaker/Oncologist Hematology and Oncology 03/21/19 Allegra Mejias APRN-CERTIFIED NUCLEAR MEDICINE TECHNOLOGIST [address] [address] Advance Practice Nurse Hematology and Oncology 03/21/19 Rickie Dejesus MD [address] [address] Digital Marketing Assistant Pulmonary Disease 11/28/23 documented as of this encounter
--- OUTSIDE RECORDS SUMMARY | 2025-02-21 16:35 | XMS_ITS | Encounter Summary ---
Author Organization [facility] Address [address] [place] [address] Care Team Providers Care Director Compliance Name Role Phone Pacheco Hyman MD Unavailable [phone] Allegra Mejias SOFTWARE ENGINEERING ANALYST-AUTOMATION TENDER Unavailable Nikia Fishman SOFTWARE ENGINEERING ANALYST-AUTOMATION TENDER Primary Care Provider + Rickie Dejesus MD Unavailable Reason for Visit * Reason Onset Date Comments MEDICATION REFILL 12/03/2023 Encounter Details Date Type Department Care Team (Late st Contact Info) Description 12/03/2023 Refill [facility] - [facility] [address] [place] [address], [place] [phone] Brian Wheeler MD [address] [place] [address] [place] [address] MEDICATION REFILL Social History Tobacco Use Types [...] Recorded Patient Health Questionnaire-2 Score 0 11/30/2023 [facility] [place] of Occupat ional Health - Occupational Stress [...] place to sleep or slept in a longterm (including now)? 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 [...] 03/17/2025 10:00 AM CDT Office Visit [facility] - Hematology/Oncol [facility] [address] [place] [address] Loida Veras MD [address] [place] [phone] 03/26/2025 3:40 PM CDT Appointment [facility] CAT SCAN [address] [place] [phone] Brian Wheeler MD [address] [place] [address] 2L [facility] [place] [address] 04/08/2025 10:00 AM CDT Office Visit [facility] - Dermatology [address] [place] [address], [place] [phone] [place] [address] [place] [address] 3L [place] [phone] 04/27/2025 8:30 AM CDT Office Visit [facility] [place] [address] [place] [address] [place] [address] Brian Wheeler MD [address] [place] [address] 2[address] [place] [address] 05/07/2025 11:00 AM CDT Hospital Encounter [facility] ENDOSCOPY [address] [place] [address] Stas Aceves MD [address] [place] [phone] Surgery General 05/07/2025 11:00 AM CDT - 05/07/2025 12:00 PM CDT Surgery [facility] ENDOSCOPY [address] [place] [phone] Stas Aceves MD [address] [place] [phone] ENDOSCOPIC RETROGRADE CHOLANGIOPANCREATOGRAPHY (ERCP) 05/11/2025 6:30 AM CDT Appointment [facility] MRI [address] [place] [address] Brian Wheeler MD [address] [place] [address] 2L [place] [address] 05/21/2025 11:00 AM CDT Hospital Encounter [facility] ENDOSCOPY [address] [place] [phone] Brian Wheeler MD [address] [place] [address] 2L [place] [address] Surgery General 05/21/2025 11:00 AM CDT - 05/21/2025 11:45 AM CDT Surgery [facility] ENDOSCOPY [address] [place] [phone] Brian Wheeler MD [address] [place] [address] 2L [facility] [place] [address] COLONOSCOPY SCREEN w/ wheeler 06/03/2025 9:00 AM CDT Office Visit [facility] - Internal Med [address] [place] [address], [place] [phone] Nikia Fishman APRN-CNP [address] [place] [phone] Scheduled Procedures Name Priority Associated Diagnoses [...] documented as of this encounter Care Teams Director Compliance Relationship Specialty Start Date End Date Nikia Fishman APRN-AUTOMATION TENDER [address] [place] [phone] PCP - General Nurse Practitioner 10/23/23 Pacheco Hyman MD Brewing Technician/Oncologist Hematology and Oncology 03/21/19 Allegra Mejias, SOFTWARE ENGINEERING ANALYST-AUTOMATION TENDER [address] [address] Advance Practice Nurse Hematology and Oncology 03/21/19 Rickie Dejesus MD [address] [address] Builder'S Labourer Pulmonary Disease 11/28/23 documented as of this encounter
--- OUTSIDE RECORDS SUMMARY | 2025-02-21 16:35 | XMS_ITS | Referral Summary ---
Author Organization [facility] Address [address] [place] [address] Care Team Providers Care Custom Home Installer Name Role Phone No, Physician Primary Care Provider [phone] Allergies No known active allergies Medications hyaluronate (Monovisc) 88 mg/4 mL syringeIndicati ons:Osteoarthri tis of the Knee,Inject prefilled syringe into R knee one time in physicians office Inject prefilled syringe into R knee one time in physicians office 1 mL 3 Active Active Problems No known active problems Social History Tobacco Use Types Packs/Day Years Used Date Smoking Tobacco: Never Assessed Comments No Sex and Gender Information Value Date Recorded Sex Assigned at Not on file Legal Sex Female 9:45 AM PREPARATORY TECHNICIAN Gender Identity Not on file Sexual Orientation Not on file Last Filed Vital Signs Vital Sign Reading Time Taken Comments Blood Pressure - - Pulse - - Temperature - - Respiratory Rate - - Oxygen Saturation - - Inhaled Oxygen Concentration - - Weight 120.2 kg (265 lb) 06/07/2023 10:03 AM CDT Height 162.6 cm (5' 4 ) 06/07/2023 10:03 AM CDT Body Mass Index 45.49 06/07/2023 10:03 AM CDT Plan of Treatment Not on file Procedures Procedure Name Priority Date/Time Associated Diagnosis Comments SCREENING MAMMOGRAM 2D BILATERAL Schedule Routine, Read Routine (OP Routine) 02/19/2018 1:15 PM CDT Breast cancer screening from Last 3 Months or Most Recently Relevant to Health Maintenance Results * Screening Mammogram 2D Bilateral (02/19/2018 1:15 PM CDT) Anatomical Region Laterality Modality Breast Bilateral Mammography Narrative 02/21/2018 11:53 AM CDT Screening Mammogram 2D Bilateral: 02/19/18 Clinical: Breast cancer screening. Prior Study Comparisons: Compared to: 03/12/2017 DIAGNOSTIC MAMMOGRAM 2D LEFT, 02/15/2016 DIAGNOSTIC MAMMOGRAM 2D LEFT, 01/21/2015 DIAGNOSTIC MAMMOGRAM 2D LEFT, and 02/10/2014 DIAGNOSTIC MAMMOGRAM 2D LEFT As a result of converting prior patient data to a new electronic medical record, the type of prior mammogram may have a wrong exam descriptor. The inserted date may reflect the date of interpretation rather than the actual study date. Findings: Bilateral No significant masses, malignant type calcifications, skin thickening, nipple retraction, or significant lymphadenopathy is noted in either breast. The CAD review showed no significant findings. The breasts are almost entirely fatty. Impression: BI-RADS ATLAS category (overall): 2 Benign There is no mammographic evidence of malignancy. Routine Screening Mammogram in 1 Yr is recommended for bilateral Overall Assessment: 2 - Benign us Physician No IMG MAMMO PROCEDURES Final Resul t from Last 3 Months or Most Recently Relevant to Health Maintenance Insurance [facility]PPO Address: [address] [address] [facility]O Address: [place] [address] Care Teams Custom Home Installer Relationship Specialty Start Date End Date No, Physician PCP - General 03/12/17
--- OUTSIDE RECORDS SUMMARY | 2025-02-21 16:35 | XMS_ITS | Encounter Summary ---
Author Organization [facility] Address [address] [facility] [place] [address] Care Team Providers Care Healthcare Market Consultant Name Role Phone Pacheco Hyman MD Unavailable [phone] Allegra Mejias SALES MERCHANDISE ASSOCIATE-RUBY SOFTWARE DEVELOPER Unavailable Pcp, Lino Scott Primary Care Provider Unav ailable None, Physician Primary Care Provider Unavailabl e Nikia Fishman SALES MERCHANDISE ASSOCIATE-RUBY SOFTWARE DEVELOPER Primary Care Provider + Nikia Fishman SALES MERCHANDISE ASSOCIATE-RUBY SOFTWARE DEVELOPER Primary Care Provider + Rickie Dejesus MD Unavailable Reason for Visit * Reason Onset Date Comments MEDICATION REFILL 08/13/2023 Encounter Details Date Type Department Care Team (Late st Contact Info) Description 08/13/2023 Refill [facility] [place] [address] [place] [address], [place] [address] Liliana Madera PA-C [address] [place] [address] [facility] [place] [address] MEDICATION REFILL Social History Tobacco Use Types Packs/Day Years Used Date Smoking Tobacco: Former Cigarettes 1.5 15 0 1978 - 1993 Smokeless Tobacco: Never Alcohol Use Standard Drinks/Week Comments Not Currently 0 (1 standard drink = 0.6 oz pur e alcohol) AUDIT-C Answer Date Recorded Frequency of Alcohol Consumption 2-4 times a mon 08/12/2019 Average Number of Drinks Not on file 019 Frequency of Binge Drinking Not on file 07/23 PHQ-2 Answer Date Recorded PHQ2 TOTAL SCORE 0 04/06/2022 Comments No Sex and Gender Information Value Date Recorded Sex Assigned at Not on file Legal Sex Female 6:28 AM UNDERLINER Gender Identity Not on file Sexual Orientation Lesbian 02/08/2024 4: 10 AM CDT 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 Answer Date of Assessment Author No 06/28/2023 2:48 PM CDT Kristine Armendariz RN * Is person blind or have serious difficulty seeing? Answer Date of Assessment Author No 06/28/2023 2:48 PM CDT Kristine Armendariz RN * Does person have serious difficulty walking/climbing stairs? Answer Date of Assessment Author No 06/28/2023 2:48 PM CDT Kristine Armendariz RN * Does person have difficulty dressing/bathing? Answer Date of Assessment Author No 06/28/2023 2:48 PM WEST Kristine Armendariz RN * Does person have difficulty doing errands alone? Answer Date of Assessment Author No 06/28/2023 2:48 PM WEST Kristine Armendariz RN documented as of this encounter Mental Status * Does person have difficulty concentrating/remembering/making decisions? Answer Entry Date Author No 06/28/2023 2:48 PM WEST Kristine Armendariz RN documented in this encounter Plan of Treatment Upcoming Encounters Date Type Department Care Team (Latest Contact Info) Description 03/17/2025 10:00 AM CDT Office Visit [facility] - Hematology/Oncol [place] [address] [place] [address] Loida Veras MD [address] [place] [address] 03/26/2025 3:40 PM CDT Appointment [facility] CAT SCAN [address] [place] [address] Brian Dockery MD [address] [place] [address] [address] [place] [address] 04/08/2025 10:00 AM CDT Office Visit [facility] - Dermatology [address] [place] [phone] Quoc Willams MD [address] [place] [address] [address] [place] [address] 04/27/2025 8:30 AM CDT Office Visit [facility] - GI [address] [place] [phone] Brian Dockery MD [address] [place] [address] [address] [place] [address] 05/07/2025 11:00 AM CDT Hospital Encounter [facility] ENDOSCOPY [facility] [place] [address] Stas Aceves MD [facility]8 [place] [address] Surgery General 05/07/2025 11:00 AM CDT - 05/07/2025 12:00 PM CDT Surgery [facility] ENDOSCOPY [address] [place] [address] Stas Aceves MD [facility] [place] [phone] ENDOSCOPIC RETROGRADE CHOLANGIOPANCREATOGRAPHY (ERCP) 05/11/2025 6:30 AM CDT Appointment [facility] MRI [address] [place] [address] Brian Dockery MD [address] [place] [address] [address] [address] 05/21/2025 11:00 AM CDT Hospital Encounter [facility] ENDOSCOPY [address] [place] [address] Brian Dockery MD [address] [place] [address] [address] [address] Surgery General 05/21/2025 11:00 AM CDT - 05/21/2025 11:45 AM CDT Surgery [facility] ENDOSCOPY [address] [place] [phone] Brian Dockery MD [address] [place] [address] [address] [place] [address] COLONOSCOPY SCREEN w/ liam 06/03/2025 9:00 AM CDT Office Visit [facility] - Internal Med [address] [place] [address], [place] [address] Nikia Fishman, SALES MERCHANDISE ASSOCIATE-RUBY SOFTWARE DEVELOPER [address] [place] [address] 2[address] [place] [address] Scheduled Procedures Name Priority Associated Diagnoses Date/Ti me ENDOSCOPIC RETROGRADE CHOLANGIOPANCREATOGRAPHY (ERCP) Encounter for removal of biliary stent 05/07/2025 11:00 AM CDT COLONOSCOPY SCREEN Screen for colon cancer 05/21/2025 11:00 AM CDT documented as of this encounter Goals Goal Patient Goal Type Associated Problems Recent Progress Patient-Stated? Author Medication Management General On track( 025 2:37 PM CDT) No Darlene Torres, RN Note: Expected end date: ongoing Interventions: Take all medications as prescribed Let your doctor know right away about any changes in your medications Make sure to request a refill of your medication at least one week prior to your last dose documented as of this encounter Visit Diagnoses Diagnosis Hepatic cirrhosis, unspecified hepatic cirrhosis type, unspecified whether ascites present (HCC) Encounter for removal of biliary stent Screen for colon cancer Special screening for malignant neoplasms, colon documented in this encounter Additional Health Concerns Infection Onset Date Last Indicated Resolved Time COVID-19 Under Investigation 02/08/2024 02/08/2024 02/08/2024 10:40 AM CDT COVID-19 Under Investigation 04/25/2024 04/25/2024 04/25/2024 7:52 PM CDT CDIFF Under Investigation 04/26/2024 04/26/2024 11:40 AM CDT COVID-19 Under Investigation 07/24/2024 07/24/2024 07/25/2024 3:44 AM CDT documented as of this encounter Care Teams Healthcare Market Consultant Relationship Specialty Start Date End Date Pcp, Lino Thomas PCP - General 05/18/23 09/17/23 None, Physician [address] [place] [address] PCP - General 09/18/23 10/17/23 Nikia Fishman SALES MERCHANDISE ASSOCIATE-RUBY SOFTWARE DEVELOPER [address] [place] [phone] PCP - General Nurse Practitioner 10/18/23 10/22/23 Nikia Fishman SALES MERCHANDISE ASSOCIATE-RUBY SOFTWARE DEVELOPER [address] [place] [phone] PCP - General Nurse Practitioner 10/23/23 Pacheco Hyman MD Extractor Filler/Oncologist Hematology and Oncology 03/21/19 Allegra Mejias SALES MERCHANDISE ASSOCIATE-RUBY SOFTWARE DEVELOPER [address] [address] Advance Practice Nurse Hematology and Oncology 03/21/19 Rickie Dejesus MD [address] [address] [employer] Worker Pulmonary Disease 11/28/23 documented as of this encounter
--- OUTSIDE RECORDS SUMMARY | 2025-02-21 16:35 | XMS_ITS | Encounter Summary ---
Author Organization [facility] Address [address] [facility] [place] [address] Care Team Providers Care Board Of Education Secretary Name Role Phone Pacheco Hyman MD Unavailable [phone] Allegra Mejias LAWN MOWER REPAIRER-SENIOR SQL DBA Unavailable Nikia Fishman LAWN MOWER REPAIRER-SENIOR SQL DBA Primary Care Provider + Rickie Dejesus MD Unavailable Reason for Visit * Reason Onset Date Comments Future Appointment 10/26/2023 Encounter Details Date Type Department Care Team (Late st Contact Info) Description 10/26/2023 Telephone [facility] - Internal Med [address] [facility] [place] [address] Nikia Fishman, LAWN MOWER REPAIRER-SENIOR SQL DBA [address] [address] Future Appointment Social History Tobacco Use Types Packs/Day Years Used Date Smoking Tobacco: Former Cigarettes 1.5 15 0 1978 - 1993 Smokeless Tobacco: Never Alcohol Use Standard Drinks/Week Comments Not Currently 0 (1 standard drink = 0.6 oz pur e alcohol) AUDIT-C Answer Date Recorded Q1: How often [...] at all 10/25/2023 PHQ-2 Answer Date Recorded PHQ2 TOTAL SCORE 0 04/06/2022 [facility] - Occupational Stress [...] place to sleep or slept in a fci (including now)? 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 Answer Date of Assessment Author No 10/23/2023 11:51 PM MODELING TEACHER Skylar Tracy RN * Is person blind or have serious difficulty seeing? Answer Date of Assessment Author No 10/23/2023 11:51 PM MODELING TEACHER Skylar Tracy RN * Does person have serious difficulty walking/climbing stairs? Answer Date of Assessment Author No 10/23/2023 11:51 PM MODELING TEACHER Skylar Tracy RN * Does person have difficulty dressing/bathing? Answer Date of Assessment Author No 10/23/2023 11:51 PM MODELING TEACHER Skylar Tracy RN * Does person have difficulty doing errands alone? Answer Date of Assessment Author No 10/23/2023 11:51 PM MODELING TEACHER Skylar Tracy RN documented as of this encounter Mental Status * Does person have difficulty concentrating/remembering/making decisions? Answer Entry Date Author No 10/23/2023 11:51 PM Skylar Mackenzie RN documented in this encounter Miscellaneous Notes * Telephone Encounter - Margaret Castillo - 10/26/2023 1:40 PM CST Current Provider name: Nikia Fishman Reason for call: Pt has a new pt appointment scheduled 11/30/23 Pt was recently discharged from the hospital regarding fluid build up and while being in the hospital she was experiencing hypotension Pt was informed to follow up with pcp and is requesting a sooner in office appt Patient Call Back number: [phone] LING TEACHER documented in this encounter Plan of Treatment Upcoming Encounters Date Type Department Care Team (Latest Contact Info) Description 03/17/2025 10:00 AM CDT Office Visit [facility] - Hematology/Oncol ogy [address] [place] [address] Loida Veras MD [address] [place] [address] 03/26/2025 3:40 PM CDT Appointment [facility] CAT SCAN [address] [place] [address] Brian Dockery MD [address] [place] [address] [address] [place] [address] 04/08/2025 10:00 AM CDT Office Visit [facility] - Dermatology [address] [place] [phone] Quoc Willams MD [address] [place] [address] [address] [place] [address] 04/27/2025 8:30 AM CDT Office Visit [facility] - GI [address] [place] [phone] Brian Dockery MD [address] [place] [address] [address] [place] [address] 05/07/2025 11:00 AM CDT Hospital Encounter [facility] ENDOSCOPY [address] [place] [phone] Stas Aceves MD [facility] [place] [address] Surgery General 05/07/2025 11:00 AM CDT - 05/07/2025 12:00 PM CDT Surgery [facility] ENDOSCOPY [address] [place] [phone] Stas Aceves MD [facility] [place] [phone] ENDOSCOPIC RETROGRADE CHOLANGIOPANCREATOGRAPHY (ERCP) 05/11/2025 6:30 AM CDT Appointment [facility] MRI [address] [place] [phone] Brian Dockery MD [address] [place] [address] [address] [place] [address] 05/21/2025 11:00 AM CDT Hospital Encounter [facility] ENDOSCOPY [address] [place] [address] Brian Dockery MD [address] [place] [address] [address] [place] [address] Surgery General 05/21/2025 11:00 AM CDT - 05/21/2025 11:45 AM CDT Surgery [facility] ENDOSCOPY [address] [place] [address] Brian Dockery MD [address] [place] [address] [address] [place] [address] COLONOSCOPY SCREEN w/ liam 06/03/2025 9:00 AM CDT Office Visit [facility] - Internal Med [address] [place] [address], [place] [address] Nikia Fishman, LAWN MOWER REPAIRER-SENIOR SQL DBA [address] [place] [address] [address] [place] [address] Scheduled Procedures Name Priority Associated Diagnoses Date/Ti [...] documented as of this encounter Care Teams Board Of Education Secretary Relationship Specialty Start Date End Date Nikia Fishman APRN-SENIOR SQL DBA [address] [phone] PCP - General Nurse Practitioner 10/23/23 Pacheco Hyman MD [employer] Officer/Oncologist Hematology and Oncology 03/21/19 Allegra Mejias APRN-SENIOR SQL DBA [address] [address] Advance Practice Nurse Hematology and Oncology 03/21/19 Rickie Dejesus MD [address] [place] [address] Event Services Manager Pulmonary Disease 11/28/23 documented as of this encounter
--- OUTSIDE RECORDS SUMMARY | 2025-02-21 16:35 | XMS_ITS | Encounter Summary ---
Author Organization [facility] Address [address] [facility] [place] [address] Care Team Providers Care Electrotyper Name Role Phone Pacheco Hyman MD Unavailable [phone] Allegra Mejias BIOMEDICAL PHOTOGRAPHER-PARTS SALES COUNTERPERSON Unavailable Nikia Fishman BIOMEDICAL PHOTOGRAPHER-PARTS SALES COUNTERPERSON Primary Care Provider + Rickie Dejesus MD Unavailable Encounter Details Date Type Department Care Team (Late st Contact Info) Description 02/20/2025 Orders Only [facility]P [facility] [address]L [address] [place] [phone] Desi Reinoso, MARISA S/P liver transplant (HCC); Immunosuppressed status (HCC); History of hepatocellular carcinoma; Vitamin D deficiency; Therapeutic drug monitoring; 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 No 07/24/2024 Housing Stability Vital Sign Answer Trevin e Recorded In the last 12 months, was t here a time when you were not able to pay the mortgage or rent on time? No 09/26/2024 In the past 12 months, how m any times have you moved where you were living? 1 09/26/2024 At any time in the past 12 m [facility], were you homeless or living in a fpc (including now)? 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 Answer Date of Assessment Author No 01/29/2025 12:55 PM CDT Brit Connors RN * Is person blind or have serious difficulty seeing? Answer Date of Assessment Author No 01/29/2025 12:55 PM CDT Brit Connors RN * Does person have serious difficulty walking/climbing stairs? Answer Date of Assessment Author No 01/29/2025 12:55 PM CDT Brit Connors RN * Does person have difficulty dressing/bathing? Answer Date of Assessment Author No 01/29/2025 12:55 PM CDT Brit Connors RN * Does person have difficulty doing errands alone? Answer Date of Assessment Author No 01/29/2025 12:55 PM CDT Brit Connors RN documented as of this encounter Mental Status * Does person have difficulty concentrating/remembering/making decisions? Answer Entry Date Author No 01/29/2025 12:55 PM WEST Brit Connors RN documented in this encounter Plan of Treatment Upcoming Encounters Date Type Department Care Team (Latest Contact Info) Description 03/17/2025 10:00 AM CDT Office Visit [facility] - Hematology/[place]col [facility] [address] [place] [phone] Loida Veras MD [address] [place] [address] 03/26/2025 3:40 PM CDT Appointment [facility] CAT SCAN [address] [place] [phone] Brian Dockery MD [address] [address] 04/08/2025 10:00 AM CDT Office Visit [facility] - Dermatology [address] [place] [address], [place] [address] Quoc Willams MD [address] [place] [address] [address] [place] [address] 04/27/2025 8:30 AM CDT Office Visit [facility] - GI [address] [place] [address], [place] [address] Brian Dockery MD [address] [place] [address] [address] [place] [address] 05/07/2025 11:00 AM CDT Hospital Encounter [facility] ENDOSCOPY [address] [place] [phone] Stas Aceves MD [facility] [place] [address] Surgery General 05/07/2025 11:00 AM CDT - 05/07/2025 12:00 PM CDT Surgery [facility] ENDOSCOPY [address] [place] [phone] Stas Aceves MD [facility] [place] [address] ENDOSCOPIC RETROGRADE CHOLANGIOPANCREATOGRAPHY (ERCP) 05/11/2025 6:30 AM CDT Appointment [facility] MRI [address] [place] [address] Brian Dockery MD [address] [place] [address] [address] [place] [address] 05/21/2025 11:00 AM CDT Hospital Encounter [facility] ENDOSCOPY [address] [place] [phone] Brian Dockery MD [address] [place] [address] [address] [place] [address] Surgery General 05/21/2025 11:00 AM CDT - 05/21/2025 11:45 AM CDT Surgery [facility] ENDOSCOPY [address] [place] [address] Brian Dockery MD [address] [facility] [address] [place] [address] COLONOSCOPY SCREEN w/ liam 06/03/2025 9:00 AM CDT Office Visit [facility] - Internal Med [address] 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) Encounter for removal of biliary stent Screen for colon cancer Special screening for malignant neoplasms, colon documented in this encounter Care Teams Electrotyper Relationship Specialty Start Date End Date Nikia Fishman APRN-PARTS SALES COUNTERPERSON [address] [place] [phone] PCP - General Nurse Practitioner 10/23/23 Pacheco Hyman MD Home Health Outreach Coordinator/Oncologist Hematology and Oncology 03/21/19 Allegra Mejias, BIOMEDICAL PHOTOGRAPHER-PARTS SALES COUNTERPERSON [address] [address] Advance Practice Nurse Hematology and Oncology 03/21/19 Rickie Dejesus MD [address] [place] [address] Middle [employer] Assistant Principal Pulmonary Disease 11/28/23 documented as of this encounter
--- OUTSIDE RECORDS SUMMARY | 2025-02-21 16:35 | XMS_ITS | Clinical Summary ---
Author Organization [facility] Address [address] [place] [address] Care Team Providers Care Parking Line Painter Name Role Phone Pacheco Hyman MD Unavailable [phone] Allegra Mejias BOAT FINISHER-BUSINESS TRANSFORMATION CONSULTANT Unavailable [phone] Nikia Fishman BOAT FINISHER-BUSINESS TRANSFORMATION CONSULTANT Primary Care Provider + Rickie Dejesus MD Unavailable Source Comments [facility],non-owned Affiliates and Associated Physician Practices is amultiple site organization consisting of ambulatory clinics and hospital sitesin [place], [place], [place] and [place]. This disclosure is being madepursuant to the Care Everywhere program and may not contain all information available regarding this patient. Last updated 18.[facility] [employer]Beau Allergies No known active allergies Medications * Be aware that medications may not be up to date on this document. Alwaysverify current medications with the patient. entecavir (Baraclude) 0.5 MG tablet Take 1 (one) tablet by mouth once daily 30 tablet 11 06/18/20 24 Active multivitamin daily tablet Take 1 (one) tablet by mouth daily with food Active folic acid (Folvite) 1 MG tablet Take 1 (one) tablet by mouth once daily 30 tablet 3 07/31/20 24 Active magnesium oxide (Mag-Ox) 400 MG tablet Take 2 (two) tablets by mouth 2 times daily 120 tablet 5 09/10/20 24 Active ursodiol (Actigall) 300 MG capsule Take 1 (one) capsule by mouth 2 times daily 60 capsule 5 11/07/19 25 Active pantoprazole EC (Protonix) 40 MG tablet Take 1 (one) tablet by mouth 2 times daily 60 tablet 5 11/21/19 25 Active Mounjaro 5 MG/0.5ML injection Inject 5 (five) mg subcutaneously every 14 days 10/08/20 24 Active tacrolimus (Prograf) 1 MG capsule Take 2 (two) capsules by mouth every morning AND 1 (one) capsule at bedtime. 90 capsule 11 01/03/20 25 Active HYDROcodone-noe taminophen ([place]) 5-325 MG tabletIndicatio ns:Abdominal pain, generalized Take 1 (one) tablet by mouth every 6 hours as needed for Pain 12 tablet 01/31/20 25 Active Active Problems Problem Noted Date Diagnosed Date History of liver transplant 09/25/2024 Post-procedural fever 09/25/2024 Elevated liver enzymes 08/19/2024 Cholangitis 08/08/2024 Biliary stricture of transplanted liver 08/08/20 24 Abdominal pain, generalized 04/25/2024 Complication of transplanted liver, unspecified complication 04/25/2024 Weakness 04/25/2024 Generalized weakness 04/25/2024 Neutropenia, unspecified type 04/25/2024 S/P liver transplant 02/08/2024 02/12/2024 Overview (02/02/2025): Referring Physician: Dr. Francesco Ramirez PCP: Nikia Fishman Transplant Assembler Dc Field Yoke: Dr. Dockery Transplant Summary: 02/08/2024 ([place]) Donor: local, DCD, transmedics UNOS ID: [id number], Match #: [id number] CMV D+/R-, EBV D+/R+, HCV D+/R-, HepBc+ Needs HIV, HBV and HCV using RAMYA 4-8 weeks after transplant (Due 03/07/2024- 04/04/2024) Needs HBV using RAMYA 11-13 months after transplant (Due 01/08/2025-03/09/2025) Pre-Transplant Summary: Diagnosis: SHOEMAKER/A1AT C/b HE, EV, para x 1 Liver Transplant: 02/08/2024 ([place]) Procedures Performed: Orthotopic Liver Transplant - recipient hepatectomy - piggyback caval anastomosis - primary portal anastomosis - donor RYLEY to recipient RYLEY anastomosis - primary choledochocholedochostomy with lateral ductoplasty Ligation of splenorenal shunt Fluids: 1500 mL albumin, 1400 mL crystalloid Blood Products: 4 units PRBC, 4 units FFP, 2 units platelets, 3 units cryo Estimated Blood Loss: 1400 mL. Inpatient events: 02/10 Received tunneled catheter (permacath to RIJ). Oligoanuric. Induction: Immunosuppression: Infectious Prophylaxis: Readmissions: 04/25-04/27/2024: Neutropenic illness; given neupogen 07/24/2024-08/08/2024: treated for cholangitis, ERCP with stents 08/19/2024- : cholangitis, elevated alk phos, Started on zosyn for treatment of recurrent acute cholangitis. CTAP showed migration of previously placed biliary stent. S/p ERCP 08/20 showing preexisting patent biliary sphincterotomy with old transpapillary plastic biliary stent nearly completely migrated out from the biliary tree which was removed. Cholangiogram with persistent narrowing at the post-transplant biliary anastomosis, small biloma adjacent to the anastomosis, and upstream biliary dilation. Unclear filling of right biliary tree. Balloon extraction of debris from the biliary tree till clearance. One 10 Fr by 9 cm transpapillary double pigtail plastic stent placed into the biliary tree across the biliary anastomosis. S/p PTC with internal/external biliary drain placement into right biliary tree on 08/21. Continuing to monitor LFTs and drain output daily with plan for capping trial on 08/25 per IR. Capping trial attempted on 08/25 but had pain overnight 08/25-08/26 so drain was uncapped with repeat capping trial attempted on 08/27. Patient remained afebrile and HDS >24 hours with moderate improvement in pain and stable LFTs so patient as discharged on 08/29 on PO abx to complete 14 day course and followup as detailed below. 09/25-09/30/2024: bacteremia, abx given Biopsies/Explant: Risk Testing Brief Note to document Hepatitis/HIV test results to report to UNOS UNOS requires the following tests to be drawn prior to transplant. For documentation purposes, the results are: HIV-1 HIV-2 Antigen/Antibody: NOT DONE BY INPATIENT TEAM Hepatitis B core antibody (total anti-HBc): Latest Reference Range & Units 02/08/24 09:46 HBc Antibody Total Non-reactive Reactive ! Hepatitis B surface antibody (HBsAb): Latest Reference Range & Units 02/08/24 09:46 Hepatitis B Surface Antibody Quantitative <8.0 mIU/mL 43.7 (H) Hepatitis B surface antigen (HBsAg): Latest Reference Range & Units 02/08/24 09:46 Hepatitis B Virus Surface Antigen Non-reactive Non-reactive Hepatitis C ribonucleic acid (RNA) by nucleic acid test (RAMYA): Latest Reference Range & Units 02/08/24 09:46 Hepatitis C RNA PCR, Interp Not detected Not detected Hepatitis C antibody (anti-HCV): Latest Reference Range & Units 02/08/24 09:46 Hepatitis C Antibody Non-reactive Non-reactive 4-8 weeks post transplant: Latest Reference Range & Units 03/18/24 08:28 HIV-1 RNA Quantitative PCR copies/mL <20 Hepatitis C RNA PCR, Interp Not detected Not detected HBV Qnt by NAAT Interp Not Detected Not Detected 11-13 Months post transplant: Latest Reference Range & Units 01/29/25 10:58 HBV Qnt by NAAT Interp Not Detected Not Detected HBV Qnt by NAAT IU/mL IU/mL Not Detected HBV Qnt by NAAT log IU/mL log IU/mL Not Detected POST TRANSPLANT IMAGING Liver transplant recipient in 02/09/24 02/11/2024 DONTA (acute kidney injury) 02/10/2024 Liver failure without hepatic coma, unspecified chronicity 12/03/2023 Encounter for pre-transplant evaluation for liver transplant 11/23/2023 Overview (02/08/2024): Julia Yeager 1965 A1AT + SHOEMAKER PATIENT WILL NEED SHUNTS LIGATED AT TIME OF TRANSPLANT Biopsy proven SHOEMAKER and A1AT cirrhosis Immunostain for A1AT was technically performed at [facility]. Manual interpretation is performed by Dr. Jose Brooks as follow: A1AT staining is positive for A1AT globules. The diagnosis is updated as follow: Liver, needle biopsy ([facility] [id number], 02/27/2020) : - Cirrhotic liver (if phlebotomy services representative) with steatohepatitis and A1AT deficiency +HE +ascites +hpatic hydrothorax Medications: Lasix 60 / usama 150 Lactulose / xifaxan prilosec monjaro Colace prn zofran prn miralax prn Body mass index is 39.29 kg/m . Following with Dr. Betts Initial visit 11/29/23 F/u 06/25/24 MELD 3.0: 24 at 02/08/2024 9:46 AM MELD-Na: 23 at 02/08/2024 9:46 AM Calculated from: Serum Creatinine: 1.17 mg/dL at 02/08/2024 9:46 AM Serum Sodium: 134 mmol/L at 02/08/2024 9:46 AM Total Bilirubin: 3.4 mg/dL at 02/08/2024 9:46 AM Serum Albumin: 2.5 g/dL at 02/08/2024 9:46 AM INR(ratio): 2.0 at 02/08/2024 9:46 AM Age at listin years Sex: Female at 02/08/2024 9:46 AM HEP IMMUNITY STATUS: Hepatitis B Surface Antibody Quantitative 23.9 (H) 12/12/23 15:37 12/12/23 15:39 ABO Rh B POS B POS 12/12/23 15:37 Ferritin 322 (H) Iron 212 (H) TIBC Calculated 204 (L) Transferrin 163 (L) Transferrin Saturation % 100 (H) 12/12/23 15:37 Total Cholesterol (NMR) 176 Triglycerides 98 HDL 21 (L) LDL Calculated 135 (H) 12/12/23 Alpha-Fetoprotein Tumor Marker <2.0 11/28/23 12/12/23 Hemoglobin A1c 4.0 Estimated Average Glucose 68 PTH Intact 56.3 12/16/19 13:58 12/29/19 16:27 12/12/23 15:37 PIETER Positive ! F-Actin Antibody IgG 16 Mitochondrial M2 Antibody <20.0 3.6 APL panel collected 11/10/22 12/12/23 Dcqcm-4-Ouagrtlhydy 52 (L) Ceruloplasmin 23 01/14/24 12:33 Cardiolipin Antibody IgG <10 Cardiolipin Antibody IgM 41 (H) Beta-2 Glycoprotein Antibody IgG <10 Beta-2 Glycoprotein Antibody IgM 27 (H) dRVVT Screen Ratio 0.84 12/12/23 Treponema pallidum Antibody Non-reactive HIV Antigen/Antibody 1 & 2 Non-reactive 12/12/23 Hepatitis A Virus Antibody Total Positive ! HBc Antibody Total Reactive ! Hepatitis B Surface Antibody Quantitative 23.9 (H) Hepatitis B Virus Surface Antibody Reactive ! Hepatitis B Virus Surface Antigen Non-reactive Hepatitis C Antibody Non-reactive 12/12/23 15:37 01/14/24 12:33 QuantiFERON-TB Gold Plus Positive ! Negative QuantiFERON Plus TB1 Minus NIL 0.49 (H) 0.07 QuantiFERON Plus TB2 Minus NIL 0.15 0.11 QuantiFERON Mitogen Minus NIL 2.72 0.99 QuantiFERON NIL 0.23 0.03 Saw ID for latent TB 12/12/23 Cytomegalovirus Antibody IgG <0.20 Lore-Nance Virus Antibody IgG Viral Capsid Antigen >750.0 (H) Measles (Rubeola) Antibody IgG >300.0 Mumps Virus Antibody IgG >300.0 Rubella Antibody IgG 194.0 Varicella zoster Virus Antibody IgG 1363.0 12/12/23 15:37 Strongyloides Antibody IgG 0.2 Toxoplasma Antibody IgG <3.0 12/12/23 Alcohol Random Urine Negative Amphetamines Urine Screen Negative Barbiturates Urine Screen Negative Benzodiazepines Urine Screen Negative THC Urine Screen Negative Cocaine Urine Screen Negative Methadone Urine Screen Negative Opiates Urine Negative Phencyclidine Urine Screen Negative Propoxyphene Urine Screen Negative 12/12/23 15:37 Cotinine <5 Nicotine <5 12/12/23 15:37 PEth 16:0/18.1 (POPEth) <10 PEth 16:0/18.2 (PLPEth) <[address] 10/23/23 Large right pleural effusion with near-complete collapse of the right lung with small area of aerated lung within the right upper lobe. Subtle groundglass opacities within the left upper lobe, which could be infectious or inflammatory. Hepatic cirrhosis with evidence of portal hypertension as evidenced by splenomegaly and extensive collaterals and varices. PFT 2021 1. Normal PFTs 2. No significant bronchodilator response, however this does not preclude the use of bronchodilators. 3. There is no previous study available for comparison 3p liver CT 01/01/24 Impression: 1.Subcentimeter LR3 lesion in hepatic segment 5/8. 2.Hepatic cirrhosis with sequela of portal hypertension including extensive varices and splenomegaly. 3.Small right pleural effusion with adjacent atelectasis. Echo w/BS 2/28/24 Left Ventricle: Left ventricle size is normal. LVIDd index is 2.64 cm/m2. EDV Index BP is 65.0 mL/m2. ESV Index BP is 24.9 mL/m2. Normal wall thickness. LVPWd is 0.74 cm. Ventricular mass is normal. Mass index 2D is 83.56 g/m2. Normal systolic function with a visually estimated EF of 60 - 65%. Normal wall motion. Septal motion is normal. Normal diastolic function. Normal mean left atrial pressure. Tissue Doppler velocity is normal. MV peak E velocity is 107.647 cm/s. MV peak A velocity is 93.762 cm/s. E/A ratio is 1.15. MV e' lateral velocity is 15.672 cm/s. MV e' septal velocity is 11.431 cm/s. Left Atrium: The interatrial septum appears normal with no evidence of a shunt by color flow Doppler. No right to left intracardiac or extracardiac shunt present viewable with agitated saline, color Doppler, spectral Doppler and Valsalva maneuver. No mass present. Pericardium: No pericardial effusion. Right pleural effusion. No ascites present. Right Ventricle: Right ventricle size is normal. Normal free wall thickness. RV basal diameter is 2.9 cm. RV mid diameter is 3.0 cm. RV longitudinal diameter is 7.7 cm. RVIDd is 3.5 cm. RV wall thickness is 0.5 cm. Normal wall motion. Normal systolic function. TAPSE is 2.403 cm. Fractional area change (FAC) is 57.08%. No mass present. Right Atrium: Right atrium size is normal. RA volume index is 17.91 mL/m2. No mass present. Estimated right atrial pressure is normal (~3 mmHg). Aortic Valve: No regurgitation. No stenosis. AV mean gradient is 5 mmHg. AV peak gradient is 10 mmHg. AV peak velocity is 1.57 m/s. AV area by continuity VTI is 2.5 cm2. AV area by peak velocity is 2.5 cm2. Valve area index 1.2 cm2/M2. Stroke volume inde 40 ml/M2. Cardiac index > 3.6 L/min/M2. Mitral Valve: No regurgitation. No stenosis. Tricuspid Valve: Trace regurgitation. The pulmonary artery systolic pressure is normal (under 30 mmHg). TR VTI is 52.7 cm. TR peak velocity is 237.5 cm/s. Estimated sPAP is 26.0 mmHg. Estimated RVSP is 26.0 mmHg. RAP is 3.0 mmHg. Mean PA pressure of 15 mmHg. PVR 1.9 Wood units. No stenosis. Grade 1 atherosclerosis of the sinus of Valsalva and ascending aorta. No pericardial effusion. Right pleural effusion. No ascites present. Essentially normal resting echocardiogram by 2D, m-mode, color and spectral Doppler echocardiography. Study Details Study quality was good. A complete 2D, color Doppler, spectral Doppler and M- mode echocardiogram was performed. The apical, parasternal, subcostal and suprasternal views were obtained. Saline ultrasound enhancing agent used. Patient exhibited sinus rhythm. DSE 12/19/23 Resting Echo Findings Left Ventricle: Left Ventricle: Left ventricle size is normal. LVIDd index is 2.64 cm/m2. EDV Index BP is 65.0 mL/m2. ESV Index BP is 24.9 mL/m2. Normal wall thickness. LVPWd is 0.74 cm. Ventricular mass is normal. Mass index 2D is 83.56 g/m2. Normal systolic function with a visually estimated EF of 60 - 65%. Normal wall motion. Septal motion is normal. MOD EF 63%. Normal diastolic function. Normal mean left atrial pressure. Tissue Doppler velocity is normal. MV peak E velocity is 107.647 cm/s. MV peak A velocity is 93.762 cm/s. E/A ratio is 1.15. MV e' lateral velocity is 15.672 cm/s. MV e' septal velocity is 11.431 cm/s. Left Atrium: Left atrium size is normal. Left atrium volume index is 25.4 mL/m2. The interatrial septum appears normal with no evidence of a shunt by color flow Doppler. No right to left intracardiac or extracardiac shunt present viewable with agitated saline, color Doppler, spectral Doppler and Valsalva maneuver. No mass present. Right Ventricle: Right Ventricle Right ventricle size is normal. Normal free wall thickness. RV basal diameter is 2.9 cm. RV mid diameter is 3.0 cm. RV longitudinal diameter is 7.7 cm. RVIDd is 3.5 cm. RV wall thickness is 0.5 cm. Normal wall motion. Normal systolic function. TAPSE is 2.403 cm. Fractional area change (FAC) is 57.08%. No mass present. Right Atrium: Right AtriumRight atrium size is normal. RA volume index is 17.91 mL/m2. No mass present. IVC/SVCIVC diameter is less than or equal to 21 mm and decreases greater than 50% during inspiration; therefore the estimated right atrial pressure is normal (~3 mmHg). IVC is normal in size. SVC was not assessed. Stress Findings: A pharmacological stress test was performed using dobutamine with low-level exercise. The peak dobutamine dose was 30.0 mcg/kg/min.The total atropine dose was 0.4 mg. The patient reported fatigue during the stress test. Symptoms began at minute 5 during stress and ended at minute 2 during recovery. The patient reached the end of the protocol. The patient achieved the target heart rate. A peak heart rate of 144 bpm (90% of max predicted heart rate) was achieved. Blood pressure demonstrated a normal response and heart rate demonstrated a normal response to stress. The patient's heart rate recovery was normal. The patient's resting blood pressure was 94/54 mmHg. The patient's peak stress blood pressure was 125/44 mmHg. ECG: Resting ECG: Normal. Exhibits rare premature ventricular contractions. Low voltage EKG. Stress ECG: No clinically relevant ST-segment deviation. Exhibits occasional premature ventricular contractions. Recovery ECG: No clinically relevant ST-segment deviation. Exhibits rare premature ventricular contractions. The ECG was negative for ischemia. Left ventricle at low stress: Size is normal and larger than rest. MOD BP LVDVI 74 ml/M2. Systolic function is hyperdynamic and improved from rest. Wall motion is augmented normally and improved from rest. EF by visual approximation is greater than 80%. MOD BP EF 82%. Left ventricle at peak stress: Size is normal and larger than rest. MOD BP LVDVI 70 ml/M2. Systolic function is hyperdynamic and improved from rest. Wall motion is augmented normally and improved from rest. EF by visual approximation is greater than 80%. MOD BP EF 83%. Left ventricle in recovery: Size is normal and similar to rest. MOD BP LVDVI 65 ml/M2. Systolic function is hyperdynamic and improved from rest. Wall motion is augmented normally and improved from rest. EF by visual approximation is 75-80%. MOD BP EF 79%. Resting ECHO: Essentially normal resting echocardiogram by 2D, m-mode, color and spectral Doppler echocardiography. Study Impression Normal stress echocardiogram. No echocardiographic evidence of infarction or ischemia. Findings suggest a low risk of adverse cardiac events. The ECG and echo portions of the stress study are concordant with no evidence of inducible myocardial ischemia. Colonoscopy 04/21/2020 Repeat due 2024 Impression: - Preparation of the colon was fair. - Non-thrombosed external hemorrhoids found on digital rectal exam. - Congested mucosa in the rectum, in the sigmoid colon, in the descending colon, in the transverse colon, in the ascending colon, in the cecum, at the appendiceal orifice and at the ileocecal valve. Biopsied. Recommendation: - Repeat colonoscopy in 5 years for surveillance given quality of the prep. Final Diagnosis 1. Duodenum, endoscopic biopsies: -- No pathologic diagnosis 2. Ascending colon biopsies: -- No pathologic diagnosis 3. Descending colon biopsies: -- No pathologic diagnosis Mammogram 01/01/24 FINDINGS: There are no suspicious findings or evidence of malignancy on mammography. There is no significant change from the prior. PAP-patient had a total hysterectomy 10/05/22 panorex 01/01/24 No evidence of periapical abscess. dexa scan 01/01/24 BONE DENSITY ASSESSMENT: WHO Category: Normal. FRAX not reported because: All T scores for spine total, hip total, femoral neck at or above -1.0. PT frailty assessment 12/12/23 Liver Frailty Score Frailty Index Value: 4.01 (12/12/23 0900) Classification Score ROBUST: Less than or equal to 3.3 PRE-FRAIL: 3.3 - 4.4 FRAIL: Greater than or equal to 4.5 Transplant Education 12/12/23 Jessica Hoang, jointer machineResource Analyst 01/22/24 Clinical Social Work Impression: It is the impression of this social services technician that Julia Joanne Yeager has several positive factors for Liver transplant candidacy including knowledge of illness, sufficient insurance coverage, stable financial situation for post transplant needs, no concerns regarding substance abuse, adequate support system, and appropriate discharge plan. Plan: aged or disabled care worker to provide supportive services as needed. Patient appears to be a reasonable candidate for transplant from a psychosocial perspective. Post transplant arrangement forms are needed prior to being listed. Psychiatric Consult Recommended: NO Transplant Prevention Rn: Sully Cabello LCSW RD 12/12/23 Ht: 64 Wt: 215.4 lbs Xiphoid: 37.5 BMI: 36.97, Class II Obesity. Pt is considered to be a good candidate for a Liver Transplant from a Nutrition standpoint. Pt instructed to work on wt loss for a goal of < 210 lbs, BMI of 35 or less. Transplant Surgical Consultation 01/14/24 Dr. Coreas Assessment & Plan: I spent 45 minutes with discussing the risks and benefits of liver transplant including the need for lifelong immunotherapy, the need for the patient to be compliant with the immunotherapy, the need for a lifelongrelationship with a health care provider and the need to have labs checked frequently. We also talked about the risks of surgery including but not exclusive of in the operating room, bleeding, infection, prolonged ICUand hospital stay, risks of leaks and thrombosis of any of the hookups of the new liver. We discussed that the liver transplant is a lifesaving procedure and not an elective procedure and thus carries the concomitant risksof such a procedure. One year survival of 85-90% was given. We talked about the fact that liver transplant is not a cure for Hepatitis C and that it returns in all patients with active virus at the time of transplant. We also discussed extending life expectancy despite reoccurance and making some patients eligible for treatment for Hepatitis C. I believe is a Good candidate for liver transplant. - Pt was PIETER+, so antiphospholipid antibody panel was ordered - Referral sent to Infectious Disease due to positive Quantiferon gold plus results; Please discuss treatment with Transplant Surgery prior to initiation - Advised to increase physical exercise as tolerated (15 minutes per day and increase to at least 30 minutes per day) - Advised to increase protein intake - Pt may benefit from midodrine treatment - Pt will need shunts ligated at the time of transplant Delmy Ang, MS4 Medical Student [facility] Infectious Disease 01/24/24 Assessment and Plan: Positive and Negative Quantiferon test Liver cirrhosis Alpha 1 anti-trypsin deficiency Patient with history of alpha 1 antitrypsin deficiency and liver cirrhosis here for evaluation due to positive Quantiferon TB test. -Patient with high pre-test probability for Latent TB due to TB exposure history. -Obtain T-spot test to confirm -Hold off on treatment pending T-spot results. If patient has positive T-spot test, we will treat for Latent TB. 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 Potential 04/29/2019 Thrombocytopenia 02/25/2019 Elevated bilirubin 02/25/2019 Peripheral edema 02/14/2019 Cervical radiculopathy 02/14/2019 Resolved Problems Problem Noted Date Diagnosed Date Resolved Date Dehydration 04/25/2024 05/09/2024 ESRD (end stage renal disease) 02/08/2024 02/09/2024 Fever 04/19/2020 05/03/2020 BMI 50.0-59.9, adult 02/14/2019 024 Encounters Date Type Department Care Team Description 02/20/2025 Orders Only [facility] TXP [facility] [address] [place] [id number] Desi Nicholson, RN S/P liver transplant (HCC); Immunosuppressed status (HCC); History of hepatocellular carcinoma; Vitamin D deficiency; Therapeutic drug monitoring; 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) 02/18/2025 Telephone [facility] [address] [place] [id number] Desi Nicholson, RN Results 02/16/2025 Telephone [facility] TRANSPLANT [address] [place] [phone] Shabana Galindo Liver Transplant Follow-up 02/16/2025 Orders Only [facility] [address] [place] [id number] Desi Nicholson, RN History of hepatocellular carcinoma ; Immunosuppressed status (HCC); S/P liver transplant (HCC) 02/12/2025 Telephone [facility]P [facility] [address] [facility], [place] [phone] Desi Nicholson, RN Results 02/11/2025 Orders Only [facility] - GI [address] [place] [phone] Brian Dockery MD Lung nodule 02/09/2025 Telephone [facility] TXP KIN CSM 3L [address] [place] [phone] Desi Nicholson, complex case manager 02/09/2025 Telephone [facility] - GI [address] [place] [phone] Mina Higgins, beaming machine operator (3mo follow up ERCP for stent exchange / biliary stricture / post Liver TXP with Dr. 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) 02/05/2025 Orders Only [facility] TXP KIN CSM 3L [address] [place] [phone] Desi Nicholson, RN S/P liver transplant (HCC) ; Immunosuppressed status (HCC); History of hepatocellular carcinoma; Vitamin D deficiency 02/04/2025 8:40 AM CDT - 02/04/2025 11:59 PM CDT Hospital Encounter [facility] CAT SCAN [address] [place] [phone] Brian Dockery MD Discharge Disposition: Home or Self Care 02/04/2025 7:30 AM CDT - 02/04/2025 8:39 AM CDT Hospital Encounter [facility] MRI [address] [place] [address] Brian Dockery MD Discharge Disposition: Home or Self Care 02/04/2025 Travel 01/30/2025 Telephone [facility] TXP KIN CSM [address]L [address] [place] [address] Desi Nicholson, RN Results 01/30/2025 Orders Only [facility] TXP KIN CSM 3L [address] [place] [address] Desi Nicholson, MARISA S/P liver transplant (HCC); Immunosuppressed status (HCC); Therapeutic drug monitoring; Vitamin D deficiency; History of hepatocellular carcinoma; 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); Abnormal AST and ALT; History of alcohol abuse 01/29/2025 11:48 AM CDT Anesthesia Event [facility] ENDOSCOPY [address] [place] [address] Pacheco Dietz II, MD Keeven, Grace C, BOAT FINISHER-BUSINESS TRANSFORMATION CONSULTANT 01/29/2025 11:00 AM CDT - 01/29/2025 1:00 PM CDT Surgery [facility] ENDOSCOPY [address] [place] [address] Stas Aceves MD ENDOSCOPIC RETROGRADE CHOLANGIOPANCREATOGRAPHY (ERCP) 01/29/2025 10:16 AM CDT - 01/29/2025 2:25 PM CDT Hospital Encounter [facility] DREA OP [address] [place] [address] Stas Aceves MD Surgery General Discharge Disposition: Home or Self Care 01/29/2025 Travel 01/23/2025 Orders Only [facility] TXP KIN CSM [address] [facility] [place] [address] Desi Nicholson, MARISA S/P liver transplant (HCC); Immunosuppressed status (HCC); Therapeutic drug monitoring; Vitamin D deficiency; History of hepatocellular carcinoma; 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) 01/22/2025 Travel 01/22/2025 Telephone [facility] TXP KIN CSM [address]L [address] [place] [phone] Desi Nicholson, RN Results 01/20/2025 Telephone [facility] ENDOSCOPY [address] [place] [phone] Clovis, Kristine Lucrecia Follow-up 01/16/2025 Orders Only [facility] TXP KIN CSM 3L [address] [place] [phone] Desi Nicholson, RN S/P liver transplant; Immunosuppressed status; Therapeutic drug monitoring; Vitamin D deficiency; History of hepatocellular carcinoma; 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 01/10/2025 Telephone [facility] TRANSPLANT [address] [place] [phone] Pacheco Marina, MARISA Liver Transplant Follow-up (labs) 01/09/2025 Telephone [facility] - [address] [phone] Mina Higgins, MARISA Appointment (move up ERCP) 01/09/2025 Orders Only [facility] TXP KIN CSM [address] [place] [phone] Desi Nicholson, RN S/P liver transplant; Immunosuppressed status; Therapeutic drug monitoring; Vitamin D deficiency; History of hepatocellular carcinoma; 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 01/02/2025 Orders Only [facility] TXP KIN CSM [address]L [facility] [place] [phone] Desi Nicholson, RN S/P liver transplant; Immunosuppressed status; Therapeutic drug monitoring; Vitamin D deficiency; History of hepatocellular carcinoma; 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; Abnormal AST and ALT; History of alcohol abuse 12/31/2024 Travel 12/29/2024 2:00 PM CDT Office Visit [facility] - [address] [phone] Brian Dockery MD S/P liver transplant (Primary Dx); Low vitamin D level 12/26/2024 Refill [facility] - Nephrology [address] [place] [phone] Karis Jones MD MEDICATION REFILL 12/26/2024 Telephone [facility] TXP KIN CSM [address]L [facility] [place] [phone] Desi Nicholson, MARISA Results 12/26/2024 Orders Only [facility] TXP KIN CSM 3L [address] [place] [phone] Desi Nicholson, RN S/P liver transplant; Immunosuppressed status; Therapeutic drug monitoring; Vitamin D deficiency; History of hepatocellular carcinoma; 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 12/24/2024 Travel 12/19/2024 Orders Only [facility] TXP KIN CSM [address]L [facility] [place] [phone] Desi Nicholson, MARISA S/P liver transplant; Immunosuppressed status; Therapeutic drug monitoring; Vitamin D deficiency; History of hepatocellular carcinoma; 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 12/12/2024 Orders Only [facility] TXP KIN CSM [address]L [facility] [place] [phone] Desi Nicholson, MARISA S/P liver transplant; Immunosuppressed status; Therapeutic drug monitoring; Vitamin D deficiency; History of hepatocellular carcinoma; 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 12/11/2024 Telephone [facility] TXP KIN CSM [address]L [address] [place] [phone] Desi Nicholson, MARISA Results 12/08/2024 Telephone [facility] ENDOSCOPY [address] [place] [phone] Kristine Brannon (Internal Referral, Ercp 3 month follow up, Dr. Aceves) 12/05/2024 Orders Only [facility] TXP KIN CSM [address]L [facility] [place] [phone] Desi Nicholson, RN S/P liver transplant; Immunosuppressed status; Therapeutic drug monitoring; Vitamin D deficiency; History of hepatocellular carcinoma; 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 12/02/2024 9:00 AM CREDIT CORRESPONDENCE CLERK Office Visit [facility] - Internal Med [address] [facility], [place] [address] Nikia Fishman APRN-BUSINESS TRANSFORMATION CONSULTANT Annual wellness visit (Primary Dx); Night sweats; BMI 27.0-27.9,adult; History of liver transplant 12/02/2024 Orders Only [facility] TXP KIN CSM 3L [address] [facility], [place] [phone] Desi Nicholson, RN 12/02/2024 Travel 11/28/2024 Telephone [facility] TXP KIN CSM 3L [address] [facility], [place] [phone] Desi Nicholson, RN Results 11/28/2024 Orders Only [facility] TXP KIN CSM 3L [address] [place] [phone] Desi Nicholson, RN S/P liver transplant; Immunosuppressed status; Therapeutic drug monitoring; Vitamin D deficiency; History of hepatocellular carcinoma; 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 from Last 3 Months Immunizations Immunization Administration Dates Next Due [facility] primary monoval ent 12+ yr 0.3mL Purple cap 02/12/2021,01/22/2021 FLU, HISTORIC VACCINE 07/22/2024 Hep B, Adjuvanted 01/17/2024,12/17/2023 INFLUENZA VACCINE 08/09/2023 PNEUMOCOCCAL PCV20 CONJ VAC IM 11/07/2023 TDAP (7yrs+) 11/07/2023 Family History Medical History Relation Name Comments Cancer - Colon Brother Cancer - Lung Brother +smoker CAD (Coronary Artery Disease) Father CHF Cancer - Lung Father +smoker Diabetes - Type 2 Father Peptic Ulcer Disease Father Diabetes - Type 2 Mother Other - Hepatic/Liver Mother Cirrho sis Cancer - Breast Paternal Grandmother CVA Sister 1 Cancer - Ovarian Neg Hx Cancer - Uterine Neg Hx Relation Name Status Comments Brother Father Mother Paternal Grandmother Sister 1 Alive Sister 2 Alive Social History Tobacco Use Types Packs/Day Years Used Date Smoking Tobacco: Former Cigarettes 1.5 15 0 1978 - 1993 Smokeless Tobacco: Never Tobacco Cessation:Counseling Given: Not Answered Alcohol Use Standard Drinks/Week Comments Not Currently [...] Recorded Patient Health Questionnaire-2 Score 0 12/02/2024 [facility] - Occupational [...] place to sleep or slept in a snf (including now)? No 07/24/2024 Housing Stability Vital Sign Answer Trevin e Recorded In the last 12 months, was t here a time when you were not able to pay the mortgage or rent on time? No 09/26/2024 In the past 12 months, how m any times have you moved where you were living? 1 09/26/2024 At any time in the past 12 m [facility], were you homeless or living in a snf (including now)? 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 Not on johanna e Not on file Last Filed Vital Signs Vital Sign Reading Time Taken Comments Blood Pressure 124/69 01/29/2025 2:00 PM CDT Pulse 70 01/29/2025 2:00 PM CDT Temperature 36.4 C (97.5 F) 01/29/2025 12:51 PM CDT Respiratory Rate 10 01/29/2025 2:00 PM CDT Oxygen Saturation 94% 01/29/2025 2:00 PM CDT Inhaled Oxygen Concentration 21% 07/26/2024 8 :16 PM CDT Weight 68.9 kg (152 lb) 01/29/2025 10:44 AM CDT Height 162.6 cm (5' 4 ) 01/29/2025 10:44 AM CDT Body Mass Index 26.09 01/29/2025 10:44 AM CDT Plan of Treatment Upcoming Encounters Date Type Department Care Team (Latest Contact Info) Description 03/17/2025 10:00 AM CDT Office Visit [facility] - Hematology/Oncol ogy [address] [place] [address] Loida Veras MD [address] [place] [address] 03/26/2025 3:40 PM CDT Appointment [facility] CAT SCAN [address] [place] [address] Brian Dockery MD [address] [place] [address] 04/08/2025 10:00 AM CDT Office Visit [facility] - Dermatology [address] [place] [phone] Quoc Willams MD [address] [place] [address] [address] [place] [address] 04/27/2025 8:30 AM CDT Office Visit [facility] - GI [address] [place] [phone] Brian Dockery MD [address] [place] [address] [address] [place] [address] 05/07/2025 11:00 AM CDT Hospital Encounter [facility] ENDOSCOPY [address] [place] [phone] Stas Aceves MD [facility] [place] [phone] Surgery General 05/07/2025 11:00 AM CDT - 05/07/2025 12:00 PM CDT Surgery [facility] ENDOSCOPY [address] [place] [phone] Stas Aceves MD [facility] [place] [address] ENDOSCOPIC RETROGRADE CHOLANGIOPANCREATOGRAPHY (ERCP) 05/11/2025 6:30 AM CDT Appointment [facility] MRI [address] [place] [phone] Brian Dockery MD [address] [place] [address] [address] [place] [address] 05/21/2025 11:00 AM CDT Hospital Encounter [facility] ENDOSCOPY [address] [place] [address] Brian Dockery MD [address] [place] [address] [address] [place] [address] Surgery General 05/21/2025 11:00 AM CDT - 05/21/2025 11:45 AM CDT Surgery [facility] ENDOSCOPY [address] [place] [address] Brian Dockery MD [address] [place] [address] [address] [place] [address] COLONOSCOPY SCREEN w/ liam 06/03/2025 9:00 AM CDT Office Visit [facility] - Internal Med [address] [place] [address], [place] [address] Nikia Fishman, BOAT FINISHER-BUSINESS TRANSFORMATION CONSULTANT [address] [place] [phone] Scheduled Procedures Name Priority Associated Diagnoses Date/Ti me ENDOSCOPIC RETROGRADE CHOLANGIOPANCREATOGRAPHY (ERCP) Encounter for removal of biliary stent 05/07/2025 11:00 AM CDT COLONOSCOPY SCREEN Screen for colon cancer 05/21/2025 11:00 AM CDT Health Maintenance Due Date Last Done Comments COLOGUARD (AGES 45-75) - COLON CA SCREENING 1965 CT COLONOGRAPHY - COLON CA SCREENING 1965 FIT - COLON CA SCREENING 1963 FLEX SIG - COLON CA SCREENING 1963 Respiratory Syncytial Virus (RSV) Vaccine Pt: or over 60 yrs (1 - Risk 60-74 years 1-dose series) 03/01/2025 Postponed fro m 2023 (Patient Refused) ZOSTER VACCINE (1 of 2) 03/01/2025 Post poned from 1982 (Patient Directed) COVID-19 VACCINE (3 - Pfizer risk series) 08/17/2025 02/12/2021, 01/22/2021 Postponed from 03/12/2021 (Patient Refused) MAMMOGRAM 12/31/2025 01/01/2024, 08/23, 08/22/2019, Additional history exists SCREENING FOR DIABETES 02/18/2028 , 2025, 01/29/2025, Additional history exists LIPID TESTING 12/12/2028 12/12/2023, 03/24, 02/14/2019 COLON MONITORING 04/21/2030 04/21/2020, 04/21/2020 COLONOSCOPY - COLON CA SCREENING 04/21/2030 04/21/2020, 04/21/2020 Colorectal Cancer Screening 04/21/2030 DTAP/TDAP/TD VACCINES (2 - Td or Tdap) 11/07/2033 11/07/2023 PNEUMOCOCCAL VACCINE 50+ Completed 11/07/2023 HEPATITIS B VACCINE Completed 01/17/2024, HIV SCREENING Completed 02/20/2024, 11/23, 03/24/2019 INFLUENZA VACCINE Completed 07/22/2024, 08/09/2023 HEPATITIS C SCREENING Completed 11/25/2024 , 06/02/2024, 03/18/2024, Additional history exists DEPRESSION SCREENING Completed 12/02/2024, 11/30/2023, 04/06/2022 HIB VACCINE Aged Out No longer eligi ble based on patient's age to complete this topic HPV VACCINE Aged Out No longer eligi ble based on patient's age to complete this topic MENINGOCOCCAL (Group B) VACCINE SHARED DECISION-MAKING Aged Out No longer eligible based on patient's age to complete this topic MENINGOCOCCAL GROUPS A/C/Y/W VACCINE Aged Out No longer eligible based on patient's age to complete this topic Goals Goal Patient Goal Type Associated Problems [...] one week prior to your last dose Medical Devices Implanted Type Area Operations Welder Device Identifier Shelf Expiration Date Model / Serial / Lot Slnt Tiss Clsr Vistaseal Fbrn 4ml Frz - [id number] Implanted:Qty: 1 on 02/09/2024 by Carlos Alberto Coreas MD at [facility] N/A: Abdomen [employer] 02/20/2025 [id number] / [id number] / [id number] 1 Kit Durathane Drflw Embosafe Chrnc Dlys Implanted:Qty: 1 on 02/11/2024 by Brook Hicks MD at [facility] Right: Chest [employer] 06/21/2026 [id number] / / [id number] Description:RIJ Dble Pigtail Implanted:Qty: 1 on 01/29/2025 by Stas Aceves MD at [facility] N/A: Bile Duct [employer] El[employer]cer 02/05/2026 [id number] / / [id number] Stent Biliary 3.3mm 15cm Ddnl Bnd Temp Implanted:Qty: 1 on 01/29/2025 by Stas Aceves MD at [facility] N/A: Bile Duct [employer] Scimed [id number] 04/29/2026 [id number] / / [id number] Explanted Type Area Operations Welder Device Identifier Shelf Expiration Date Model / Serial / Lot Stent Biliary 7fr 5cm 2 Pgtl Crv Temp Explanted:Qty: 1 on 07/18/2024 by Stas Aceves MD at [facility] [employer] [id number] 05/27/2026 [id number] / / [id number] Stent Biliary 7fr 9cm Ddnl Bnd Temp Rap (Bile Duct) Implanted:Qty: 1 on 07/18/2024 by Stas Aceves MD at [facility] Explanted:Qty: 1 on 07/28/2024 by Tin Hoover MD at [facility] Bile Duct [employer] [id number] 05/05/2026 [id number] / / [id number] Stent Biliary 8.5fr 12cm Cntr Bnd Implanted:Qty: 1 on 07/28/2024 by Tin Hoover MD at [facility] Explanted:Qty: 1 on 08/05/2024 by Stas Aceves MD at [facility] N/A: Bile Duct [employer] [id number] 07/25/2025 [id number] / / [id number] Stent Biliary 8.5fr 9cm Cntr Bnd Rap Ex Implanted:Qty: 1 on 08/05/2024 by Stas Aceves MD at [facility] Explanted:Qty: 1 on 08/07/2024 by Stas Aceves MD at [facility] Bile Duct [employer] El[employer]cer [id number] 12/19/2024 [id number] / / [id number] Zimmon Pancreatic Stent 10 Fr X 15 Cm Implanted:Qty: 1 on 08/07/2024 by Stas Aceves MD at [facility] Explanted:Qty: 1 on 08/20/2024 by Tin Hoover MD at [facility] N/A: Bile Duct [email or web address] 09/14/2025 [id number] / / [id number] Solus Double Pigtail Stent With Introducer Implanted:Qty: 1 on 08/20/2024 by Tin Hoover MD at [facility] Explanted:Qty: 1 on 11/06/2024 by Stas Aceves MD at [facility] [email or web address] [id number] 05/22/2027 [id number] / [id number]-[id number] B / [id number] Stent Biliary 10fr 9cm 2 Pgtl Crv Tpr Explanted:Qty: 1 on 11/06/2024 by Stas Aceves MD at [facility] N/A: Bile Duct Jd [employer] [id number] 07/17/2026 [id number] / / [id number] Stent Biliary 10fr 15cm Cntr Bnd Implanted:Qty: 1 on 11/06/2024 by Stas Aceves MD at [facility] Explanted:Qty: 1 on 01/29/2025 at [facility] N/A: Bile Duct [employer] [id number] 11/18/2025 [id number] / / [id number] Stent Biliary 7fr 10cm Thnwl 2 Pgtl Crv Implanted:Qty: 1 on 11/06/2024 by Stas Aceves MD at [facility] Explanted:Qty: 1 on 01/29/2025 at [facility] N/A: Bile Duct [employer] [id number] 09/30/2026 [id number] / / [id number] Procedures Procedure Name Priority Date/Time Associated Diagnosis Comments HEPATITIS B SURFACE ANTIGEN W RFLX CONFIRMATION Routine 02/17/2025 8:14 AM CDT S/P liver transplant (HCC) Immunosuppressed status (HCC) History of hepatocellular carcinoma Vitamin D deficiency Therapeutic drug monitoring 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) HEPATITIS B DNA QUANT Routine 02/17/2025 8:14 AM CDT S/P liver transplant (HCC) Immunosuppressed status (HCC) History of hepatocellular carcinoma Vitamin D deficiency Therapeutic drug monitoring 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) ALPHA FETOPROTEIN BLOOD TUMOR MARKER Routine 02/17/2025 8:14 AM CDT S/P liver transplant (HCC) Immunosuppressed status (HCC) History of hepatocellular carcinoma Vitamin D deficiency Therapeutic drug monitoring 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) VITAMIN D 25-HYDROXY Routine 02/17/2025 8:14 AM CDT S/P liver transplant (HCC) Immunosuppressed status (HCC) History of hepatocellular carcinoma Vitamin D deficiency Therapeutic drug monitoring 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) CYTOMEGALOVIRUS QUANT BLOOD Routine 02/17/2025 8:14 AM CDT S/P liver transplant (HCC) Immunosuppressed status (HCC) History of hepatocellular carcinoma Vitamin D deficiency Therapeutic drug monitoring 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) CBC W AUTO DIFFERENTIAL Routine 02/18/20 8:14 AM CDT S/P liver transplant (HCC) Immunosuppressed status (HCC) History of hepatocellular carcinoma Vitamin D deficiency Therapeutic drug monitoring 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) BASIC METABOLIC PANEL (CALCIUM TOTAL) Routine 02/17/2025 8:14 AM CDT S/P liver transplant (HCC) Immunosuppressed status (HCC) History of hepatocellular carcinoma Vitamin D deficiency Therapeutic drug monitoring 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) HEPATIC FUNCTION PANEL Routine 8:14 AM CDT S/P liver transplant (HCC) Immunosuppressed status (HCC) History of hepatocellular carcinoma Vitamin D deficiency Therapeutic drug monitoring 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) MAGNESIUM BLOOD Routine 02/17/2025 8:14 AM CDT S/P liver transplant (HCC) Immunosuppressed status (HCC) History of hepatocellular carcinoma Vitamin D deficiency Therapeutic drug monitoring 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) PHOSPHORUS BLOOD Routine 02/17/2025 8:14 AM CDT S/P liver transplant (HCC) Immunosuppressed status (HCC) History of hepatocellular carcinoma Vitamin D deficiency Therapeutic drug monitoring 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) TACROLIMUS LEVEL Routine 02/17/2025 8:14 AM CDT S/P liver transplant (HCC) Immunosuppressed status (HCC) History of hepatocellular carcinoma Vitamin D deficiency Therapeutic drug monitoring 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) CT CHEST WO CONTRAST Routine 02/04/2025 8:47 AM CDT History of hepatocellular carcinoma Immunosuppressed status (HCC) S/P liver transplant (HCC) MRI ABDOMEN WWO CONTRAST Routine 025 8:43 AM CDT History of hepatocellular carcinoma Immunosuppressed status (HCC) S/P liver transplant (HCC) CYTOMEGALOVIRUS QUANT BLOOD Routine 2025 8:23 AM CDT S/P liver transplant (HCC) Immunosuppressed status (HCC) Therapeutic drug monitoring Vitamin D deficiency History of hepatocellular carcinoma 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) CBC W AUTO DIFFERENTIAL Routine 02/04/20 8:23 AM CDT S/P liver transplant (HCC) Immunosuppressed status (HCC) Therapeutic drug monitoring Vitamin D deficiency History of hepatocellular carcinoma 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) BASIC METABOLIC PANEL (CALCIUM TOTAL) Routine 2025 8:23 AM CDT S/P liver transplant (HCC) Immunosuppressed status (HCC) Therapeutic drug monitoring Vitamin D deficiency History of hepatocellular carcinoma 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) HEPATIC FUNCTION PANEL Routine 8:23 AM CDT S/P liver transplant (HCC) Immunosuppressed status (HCC) Therapeutic drug monitoring Vitamin D deficiency History of hepatocellular carcinoma 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) MAGNESIUM BLOOD Routine 2025 8:23 AM CDT S/P liver transplant (HCC) Immunosuppressed status (HCC) Therapeutic drug monitoring Vitamin D deficiency History of hepatocellular carcinoma 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) PHOSPHORUS BLOOD Routine 2025 8:23 AM CDT S/P liver transplant (HCC) Immunosuppressed status (HCC) Therapeutic drug monitoring Vitamin D deficiency History of hepatocellular carcinoma 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) TACROLIMUS LEVEL Routine 2025 8:23 AM CDT S/P liver transplant (HCC) Immunosuppressed status (HCC) Therapeutic drug monitoring Vitamin D deficiency History of hepatocellular carcinoma 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) PHOSPHATIDYLETHANOL (PETH) Routine 2025 8:22 AM CDT S/P liver transplant (HCC) Immunosuppressed status (HCC) Therapeutic drug monitoring Abnormal AST and ALT History of alcohol abuse [place] ENDOSCOPIC ULTRASOUND EXAM 01/29/2025 11:43 AM CDT Encounter for replacement of biliary stent [place] ERCP DX W BRUSH WASH WHEN PERF 01/29/2025 11:43 AM CDT Encounter for replacement of biliary stent ERCP Routine 01/29/2025 11:36 AM CDT HEPATIC FUNCTION PANEL AM Draw 10:58 AM CDT History of liver transplant (HCC) Elevated liver enzymes Biliary stricture of transplanted liver (HCC) S/P liver transplant 02/08/2024 BASIC METABOLIC PANEL (CALCIUM TOTAL) AM Draw 01/29/2025 10:58 AM CDT History of liver transplant (HCC) Elevated liver enzymes Biliary stricture of transplanted liver (HCC) S/P liver transplant 02/08/2024 CBC W AUTO DIFFERENTIAL AM Draw 01/30/20 10:58 AM CDT History of liver transplant (HCC) Elevated liver enzymes Biliary stricture of transplanted liver (HCC) S/P liver transplant 02/08/2024 HEPATITIS B DNA QUANT AM Draw 01/29/2025 10:58 AM CDT History of liver transplant (HCC) Elevated liver enzymes Biliary stricture of transplanted liver (HCC) S/P liver transplant 02/08/2024 PHOSPHATIDYLETHANOL (PETH) Routine 01/20/2025 8:15 AM CDT S/P liver transplant (HCC) Immunosuppressed status (HCC) Therapeutic drug monitoring Abnormal AST and ALT History of alcohol abuse CYTOMEGALOVIRUS QUANT BLOOD Routine 01/20/2025 8:11 AM CDT S/P liver transplant (HCC) Immunosuppressed status (HCC) Therapeutic drug monitoring Vitamin D deficiency History of hepatocellular carcinoma 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) CBC W AUTO DIFFERENTIAL Routine 01/21/20 8:11 AM CDT S/P liver transplant (HCC) Immunosuppressed status (HCC) Therapeutic drug monitoring Vitamin D deficiency History of hepatocellular carcinoma 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) BASIC METABOLIC PANEL (CALCIUM TOTAL) Routine 01/20/2025 8:11 AM CDT S/P liver transplant (HCC) Immunosuppressed status (HCC) Therapeutic drug monitoring Vitamin D deficiency History of hepatocellular carcinoma 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) HEPATIC FUNCTION PANEL Routine 8:11 AM CDT S/P liver transplant (HCC) Immunosuppressed status (HCC) Therapeutic drug monitoring Vitamin D deficiency History of hepatocellular carcinoma 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) MAGNESIUM BLOOD Routine 01/20/2025 8:11 AM CDT S/P liver transplant (HCC) Immunosuppressed status (HCC) Therapeutic drug monitoring Vitamin D deficiency History of hepatocellular carcinoma 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) PHOSPHORUS BLOOD Routine 01/20/2025 8:11 AM CDT S/P liver transplant (HCC) Immunosuppressed status (HCC) Therapeutic drug monitoring Vitamin D deficiency History of hepatocellular carcinoma 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) TACROLIMUS LEVEL Routine 01/20/2025 8:11 AM CDT S/P liver transplant (HCC) Immunosuppressed status (HCC) Therapeutic drug monitoring Vitamin D deficiency History of hepatocellular carcinoma 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) CYTOMEGALOVIRUS QUANT BLOOD Routine 01/07/2025 8:14 AM CDT S/P liver transplant Immunosuppressed status Therapeutic drug monitoring Vitamin D deficiency History of hepatocellular carcinoma 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 CBC W AUTO DIFFERENTIAL Routine 01/08/20 25 8:14 AM CDT S/P liver transplant Immunosuppressed status Therapeutic drug monitoring Vitamin D deficiency History of hepatocellular carcinoma 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 BASIC METABOLIC PANEL (CALCIUM TOTAL) Routine 01/07/2025 8:14 AM CDT S/P liver transplant Immunosuppressed status Therapeutic drug monitoring Vitamin D deficiency History of hepatocellular carcinoma 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 HEPATIC FUNCTION PANEL Routine 5 8:14 AM CDT S/P liver transplant Immunosuppressed status Therapeutic drug monitoring Vitamin D deficiency History of hepatocellular carcinoma 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 MAGNESIUM BLOOD Routine 01/07/2025 8:14 AM CDT S/P liver transplant Immunosuppressed status Therapeutic drug monitoring Vitamin D deficiency History of hepatocellular carcinoma 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 PHOSPHORUS BLOOD Routine 01/07/2025 8:14 AM CDT S/P liver transplant Immunosuppressed status Therapeutic drug monitoring Vitamin D deficiency History of hepatocellular carcinoma 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 TACROLIMUS LEVEL Routine 01/07/2025 8:14 AM CDT S/P liver transplant Immunosuppressed status Therapeutic drug monitoring Vitamin D deficiency History of hepatocellular carcinoma 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 CYTOMEGALOVIRUS QUANT BLOOD Routine 12/23/2024 8:23 AM CREDIT CORRESPONDENCE CLERK S/P liver transplant Immunosuppressed status Therapeutic drug monitoring Vitamin D deficiency History of hepatocellular carcinoma 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 CBC W AUTO DIFFERENTIAL Routine 12/24/19 8:23 AM CREDIT CORRESPONDENCE CLERK S/P liver transplant Immunosuppressed status Therapeutic drug monitoring Vitamin D deficiency History of hepatocellular carcinoma 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 BASIC METABOLIC PANEL (CALCIUM TOTAL) Routine 12/23/2024 8:23 AM CREDIT CORRESPONDENCE CLERK S/P liver transplant Immunosuppressed status Therapeutic drug monitoring Vitamin D deficiency History of hepatocellular carcinoma 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 HEPATIC FUNCTION PANEL Routine 8:23 AM CREDIT CORRESPONDENCE CLERK S/P liver transplant Immunosuppressed status Therapeutic drug monitoring Vitamin D deficiency History of hepatocellular carcinoma 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 MAGNESIUM BLOOD Routine 12/23/2024 8:23 AM CREDIT CORRESPONDENCE CLERK S/P liver transplant Immunosuppressed status Therapeutic drug monitoring Vitamin D deficiency History of hepatocellular carcinoma 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 PHOSPHORUS BLOOD Routine 12/23/2024 8:23 AM CREDIT CORRESPONDENCE CLERK S/P liver transplant Immunosuppressed status Therapeutic drug monitoring Vitamin D deficiency History of hepatocellular carcinoma 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 TACROLIMUS LEVEL Routine 12/23/2024 8:23 AM CREDIT CORRESPONDENCE CLERK S/P liver transplant Immunosuppressed status Therapeutic drug monitoring Vitamin D deficiency History of hepatocellular carcinoma 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 CYTOMEGALOVIRUS QUANT BLOOD Routine 12/09/2024 8:47 AM CREDIT CORRESPONDENCE CLERK S/P liver transplant Immunosuppressed status Therapeutic drug monitoring Vitamin D deficiency History of hepatocellular carcinoma 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 CBC W AUTO DIFFERENTIAL Routine 12/09/19 8:47 AM CREDIT CORRESPONDENCE CLERK S/P liver transplant Immunosuppressed status Therapeutic drug monitoring Vitamin D deficiency History of hepatocellular carcinoma 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 BASIC METABOLIC PANEL (CALCIUM TOTAL) Routine 12/09/2024 8:47 AM CREDIT CORRESPONDENCE CLERK S/P liver transplant Immunosuppressed status Therapeutic drug monitoring Vitamin D deficiency History of hepatocellular carcinoma 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 HEPATIC FUNCTION PANEL Routine 8:47 AM CREDIT CORRESPONDENCE CLERK S/P liver transplant Immunosuppressed status Therapeutic drug monitoring Vitamin D deficiency History of hepatocellular carcinoma 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 MAGNESIUM BLOOD Routine 12/09/2024 8:47 AM CREDIT CORRESPONDENCE CLERK S/P liver transplant Immunosuppressed status Therapeutic drug monitoring Vitamin D deficiency History of hepatocellular carcinoma 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 PHOSPHORUS BLOOD Routine 12/09/2024 8:47 AM CREDIT CORRESPONDENCE CLERK S/P liver transplant Immunosuppressed status Therapeutic drug monitoring Vitamin D deficiency History of hepatocellular carcinoma 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 TACROLIMUS LEVEL Routine 12/09/2024 8:47 AM CREDIT CORRESPONDENCE CLERK S/P liver transplant Immunosuppressed status Therapeutic drug monitoring Vitamin D deficiency History of hepatocellular carcinoma 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 TSH Routine 12/09/2024 8:46 AM CREDIT CORRESPONDENCE CLERK Night sweats QUANTIFERON TB-GOLD Routine 12/09/2024 8 :45 AM CREDIT CORRESPONDENCE CLERK HEPATITIS C RNA QUANTITATIVE Routine 11/25/2024 12:01 PM CREDIT CORRESPONDENCE CLERK REF LAB-SPECIMEN STATUS REPORT Routine 11/25/2024 12:01 PM CREDIT CORRESPONDENCE CLERK REF LAB-SPECIMEN STATUS REPORT Routine 11/25/2024 12:01 PM CREDIT CORRESPONDENCE CLERK CYTOMEGALOVIRUS QUANT BLOOD Routine 11/25/2024 12:01 PM CREDIT CORRESPONDENCE CLERK S/P liver transplant Immunosuppressed status Therapeutic drug monitoring Vitamin D deficiency History of hepatocellular carcinoma 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 CBC W AUTO DIFFERENTIAL Routine 11/25/19 25 12:01 PM CREDIT CORRESPONDENCE CLERK S/P liver transplant Immunosuppressed status Therapeutic drug monitoring Vitamin D deficiency History of hepatocellular carcinoma 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 BASIC METABOLIC PANEL (CALCIUM TOTAL) Routine 11/25/2024 12:01 PM CREDIT CORRESPONDENCE CLERK S/P liver transplant Immunosuppressed status Therapeutic drug monitoring Vitamin D deficiency History of hepatocellular carcinoma 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 HEPATIC FUNCTION PANEL Routine 12:01 PM CREDIT CORRESPONDENCE CLERK S/P liver transplant Immunosuppressed status Therapeutic drug monitoring Vitamin D deficiency History of hepatocellular carcinoma 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 MAGNESIUM BLOOD Routine 11/25/2024 12:01 PM CREDIT CORRESPONDENCE CLERK S/P liver transplant Immunosuppressed status Therapeutic drug monitoring Vitamin D deficiency History of hepatocellular carcinoma 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 PHOSPHORUS BLOOD Routine 11/25/2024 12:01 PM CREDIT CORRESPONDENCE CLERK S/P liver transplant Immunosuppressed status Therapeutic drug monitoring Vitamin D deficiency History of hepatocellular carcinoma 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 TACROLIMUS LEVEL Routine 11/25/2024 12:01 PM CREDIT CORRESPONDENCE CLERK S/P liver transplant Immunosuppressed status Therapeutic drug monitoring Vitamin D deficiency History of hepatocellular carcinoma 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 P24 AG PANEL Routine 02/20/2024 8:24 AM CDT S/P liver transplant Immunosuppressed status Therapeutic drug monitoring MAMMO BILAT SCREENING W SRIDEVI Routine 01/01/2024 1:01 PM CDT Encounter for screening mammogram for malignant neoplasm of breast LIPID PROFILE Routine 12/12/2023 3:37 PM CREDIT CORRESPONDENCE CLERK Class 2 severe obesity with serious comorbidity and body mass index (BMI) of 39.0 to 39.9 in adult, unspecified obesity type Shortness of breath Pleural effusion Encounter for pre-transplant evaluation for liver transplant [id number] deficiency ROLAND on CPAP SHOEMAKER (nonalcoholic steatohepatitis) ENDOSCOPY, COLON, DIAGNOSTIC Routine 04/21/2020 7:43 AM CDT from Last 3 Months or Most Recently Relevant to Health Maintenance Results * CYTOMEGALOVIRUS QUANT BLOOD (02/17/2025 8:14 AM CDT) Only the most recent of7 resultswithin the time period is included. Pathologist [facility] Cytomegalovirus DNA Quantitative PCR Negative Negative IU/mL [facility] INSURANCE BILL Comment: No CMV DNA detected. The quantitative range of this assay is 200 to 1 million IU/mL. log10 CMV QN DNA Plasma CANCELED log10 IU/mL [facility] INSURANCE BILL Comment: Unable to calculate result since non-numeric result obtained for component test. Result canceled by the ancillary. Blood BLOOD SPECIMEN / Unknown 02/17/2025 8:14 AM CDT 02/17/2025 Narrative [facility] INSURANCE BILL - 02/19/2025 3:09 PM CDT Performed at: [address] [place] [id number] Mixed Animal Veterinarian: Barbara Payne MD, Phone: [phone] us Brian Dockery MD LAB - CHEMISTRY ORDERABLES Jerel yeison Result - Final [facility] INSURANCE BILL [address] [place] [address] * (ABNORMAL) TACROLIMUS LEVEL (02/17/2025 8:14 AM CDT) Only the most recent of7 resultswithin the time period is included. [facility] Tacrolimus 4.8(L) 5.0 - 20.0 ng/mL [facility] INSURANCE BILL Comment: Target steady state trough concentration for Tacrolimus varies based on type of organ transplant immunosuppressive protocol and other patient specific factors. Tacrolimus trough concentrations should be interpreted in conjunction with clinical assessments of rejection and tolerability. Values obtained with different assay methods cannot be used interchangeably due to differences in assay methods and cross-reactivty with metabolites, nor should correction factors be applied. Therefore, consistent use of one assay for individual patients is recommended. Detection Limit = 0.5 ng/mL Performed by LC-MS/MS technology Please note reference interval change Blood BLOOD SPECIMEN / Unknown 02/17/2025 8:14 AM CDT 02/17/2025 Narrative [facility] INSURANCE BILL - 02/20/2025 7:09 PM CDT Test(s) 838519-[id number] ([id number]), Blood was developed and its performance characteristics determined by [employer]. It has not been cleared or approved by the Food and Drug Administration. Performed at: 01 - [address] [id number] Mixed Animal Veterinarian: Barbara Payne MD, Phone: [phone] Brian Dockery MD LAB - THERAPEUTIC DRUG MONITOR ING ORDERABLES Final Result [facility] INSURANCE BILL [address] [place] [address] * HEPATITIS B DNA QUANT (02/17/2025 8:14 AM CDT) Only the most recent of2 resultswithin the time period is included. Pathologist [facility] Hepatitis B Virus IU/mL HBV DNA not detected IU/mL [facility] INSURANCE BILL log10 HBV IU/mL CANCELED log10 IU/mL [facility] INSURANCE BILL Comment: Unable to calculate result since non-numeric result obtained for component test. Result canceled by the ancillary. Test Information Comment [facility] INSURANCE BILL Comment:The reportable range for this assay is 10 IU/mL to 1 billion IU/mL. Blood BLOOD SPECIMEN / Unknown 02/17/2025 8:14 AM CDT 02/17/2025 Narrative [facility] INSURANCE BILL - 02/19/2025 7:09 PM CDT Performed at: [address] [id number] Mixed Animal Veterinarian: Barbara Payne MD, Phone: [phone] Brian Dockery MD LAB - CHEMISTRY ORDERABLES Jerel yeison Result - Final Performing Organization Address City/[facility] [address]/ZIP Co de Phone Number [facility] INSURANCE BILL [address] [place] [address] * VITAMIN D 25-HYDROXY (02/17/2025 8:14 AM CDT) [facility] Vitamin D, 25 Hydroxy 35.8 30.0 - 100.0 ng/mL [facility] INSURANCE BILL Comment: Vitamin D deficiency has been defined by the Mather of Medicine and an Endocrine Society practice guideline as a level of serum 25-OH vitamin D less than 20 ng/mL (1,2). The Endocrine Society went on to further define vitamin D insufficiency as a level between 21 and 29 ng/mL (2). 1. IOM (Mather of Medicine). 2010. Dietary reference intakes for calcium and D. [place]: The National Academies Press. 2. Deny MF, Madonna [place], Jesus Manuel MARTÍNEZ, et al. Evaluation, treatment, and prevention of vitamin D deficiency: an Endocrine Society clinical practice guideline. JCEM. 2010; 96(7):1911-30. Blood BLOOD SPECIMEN / Unknown 02/17/2025 8:14 AM CDT 02/17/2025 Narrative [facility] INSURANCE BILL - 02/18/2025 8:11 AM CDT Performed at: - [facility] [address] [place] [id number] Mixed Animal Veterinarian: Miguel Nicholson PhD, Phone: [phone] Brian Dockery MD LAB - CHEMISTRY ORDERABLES Fin al Result Performing Organization Address City/[facility] [address]/ZIP Co de Phone Number [facility] INSURANCE BILL [address] [place] [address] * ALPHA FETOPROTEIN BLOOD TUMOR MARKER (02/17/2025 8:14 AM CDT) [facility] Alpha-Fetoprotein Tumor Marker 2.1 0.0 - 9.2 ng/mL [facility] INSURANCE BILL Comment: [employer] Electrochemiluminescence Immunoassay (ECLIA) Values obtained with different assay methods or kits cannot be used interchangeably. Results cannot be interpreted as absolute evidence of the presence or absence of malignant disease. This test is not interpretable in females. Blood BLOOD SPECIMEN / Unknown 02/17/2025 8:14 AM CDT 02/17/2025 Narrative [facility] INSURANCE BILL - 02/18/2025 7:09 AM CDT Performed at: - [address] [id number] Mixed Animal Veterinarian: Miguel Nicholson PhD, Phone: [phone] us Brian Dockery MD LAB - CHEMISTRY ORDERABLES Fin al Result [facility] INSURANCE BILL [address] [place] [address] * (ABNORMAL) CBC WITH DIFFERENTIAL (02/17/2025 8:14 AM CDT) Only the most recent of8 resultswithin the time period is included. [facility] WBC 4.7 3.4 - 10.8 x10E3/uL [facility] INSURANCE BILL RBC 4.49 3.77 - 5.28 x10E6/uL [facility] INSURANCE BILL Hemoglobin 13.1 11.1 - 15.9 g/dL [facility] INSURANCE BILL Hematocrit 39.6 34.0 - 46.6 % [facility] INSURANCE BILL MCV 88 79 - 97 fL [facility] INSURANCE BILL MCH 29.2 26.6 - 33.0 pg [facility] INSURANCE BILL MCHC 33.1 31.5 - 35.7 g/dL [facility] INSURANCE BILL RDW 13.2 11.7 - 15.4 % [facility] INSURANCE BILL Platelet Count 111(L) 150 - 450 x10E3/uL [facility] INSURANCE BILL Granulocytes % 75 Not Estab. % [facility] INSURANCE BILL Lymphocytes % 15 Not Estab. % [facility] INSURANCE BILL Monocytes % 8 Not Estab. % [facility] INSURANCE BILL Eosinophils % 2 Not Estab. % [facility] INSURANCE BILL Basophils % 0 Not Estab. % [facility] INSURANCE BILL Granulocytes Absolute 3.5 1.4 - 7.0 x10E3/uL [facility] INSURANCE BILL Lymphocytes Absolute 0.7 0.7 - 3.1 x10E3/uL [facility] INSURANCE BILL Monocytes Absolute 0.4 0.1 - 0.9 x10E3/uL [facility] INSURANCE BILL Eosinophils Absolute 0.1 0.0 - 0.4 x10E3/uL [facility] INSURANCE BILL Basophils Absolute 0.0 0.0 - 0.2 x10E3/uL [facility] INSURANCE BILL Immature Granulocytes 0 Not Estab. % [facility] INSURANCE BILL Immature Granulocytes Absolute 0.0 0.0 - 0.1 x10E3/uL [facility] INSURANCE BILL Blood BLOOD SPECIMEN / Unknown 02/17/2025 8:14 AM CDT 02/17/2025 Narrative [facility] INSURANCE BILL - 02/18/2025 7:09 AM CDT Performed at: [address] [place] [id number] Mixed Animal Veterinarian: Miguel Nicholson PhD, Phone: [phone] us Brian Dockery MD LAB - HEMATOLOGY ORDERABLES Fi nal Result [facility] INSURANCE BILL [address] [place] [address] * (ABNORMAL) BASIC METABOLIC PANEL (CALCIUM TOTAL) (02/17/2025 8:14 AM CDT) Only the most recent of8 resultswithin the time period is included. Glucose 105(H) 70 - 99 mg/dL [facility] INSURANCE BILL BUN 19 8 - 27 mg/dL [facility] INSURANCE BILL Creatinine 1.14(H) 0.57 - 1.00 mg/dL [facility] INSURANCE BILL eGFR by CKD-EPI 54(L) >59 mL/min/1.7 3 [facility] INSURANCE BILL BUN/Creatinine Ratio 17 12 - 28 [facility] INSURANCE BILL Sodium 139 134 - 144 mmol/L [facility] INSURANCE BILL Potassium 4.0 3.5 - 5.2 mmol/L [facility] INSURANCE BILL Chloride 103 96 - 106 mmol/L [facility] INSURANCE BILL CO2 20 20 - 29 mmol/L [facility] INSURANCE BILL Calcium 9.4 8.7 - 10.3 mg/dL [facility] INSURANCE BILL Blood BLOOD SPECIMEN / Unknown 02/17/2025 8:14 AM CDT 02/17/2025 Narrative [facility] INSURANCE BILL - 02/18/2025 7:09 AM CDT Performed at: [address] [place] [id number] Mixed Animal Veterinarian: Miguel Nicholson PhD, Phone: [phone] Brian Dockery MD LAB - CHEMISTRY ORDERABLES Fin al Result Performing Organization Address [facility]/[place] Co de Phone Number [facility] INSURANCE BILL [address] [place] [address] * PHOSPHORUS BLOOD (02/17/2025 8:14 AM CDT) Only the most recent of7 resultswithin the time period is included. Phosphorus 3.2 3.0 - 4.3 mg/dL [facility] INSURANCE BILL Blood BLOOD SPECIMEN / Unknown 02/17/2025 8:14 AM CDT 02/17/2025 Narrative [facility] INSURANCE BILL - 02/18/2025 7:09 AM CDT Performed at: [address] [place] [id number] Mixed Animal Veterinarian: Miguel Nicholson PhD, Phone: [phone] Brian Dockery MD LAB - CHEMISTRY ORDERABLES Fin al Result Performing Organization Address City/[facility] [address]/[facility] de Phone Number [facility] INSURANCE BILL [address] [place] [address] * (ABNORMAL) HEPATIC FUNCTION PANEL (02/17/2025 8:14 AM CDT) Only the most recent of8 resultswithin the time period is included. Protein Total 7.4 6.0 - 8.5 g/dL [facility] INSURANCE BILL Albumin 4.0 3.9 - 4.9 g/dL [facility] INSURANCE BILL Bilirubin Total 1.5(H) 0.0 - 1.2 mg/dL [facility] INSURANCE BILL Bilirubin Direct 0.83(H) 0.00 - 0.40 mg/dL [facility] INSURANCE BILL Alkaline Phosphatase 383(H) 44 - 121 IU/L [facility] INSURANCE BILL AST 35 0 - 40 IU/L [facility] INSURANCE BILL ALT 33(H) 0 - 32 IU/L [facility] INSURANCE BILL Blood BLOOD SPECIMEN / Unknown 02/17/2025 8:14 AM CDT 02/17/2025 Narrative [facility] INSURANCE BILL - 02/18/2025 7:09 AM CDT Performed at: [address] [place] [id number] Mixed Animal Veterinarian: Miguel Nicholson PhD, Phone: [phone] Brian Dockery MD LAB - CHEMISTRY ORDERABLES Fin al Result Performing Organization Address [facility]/[place] Co de Phone Number [facility] INSURANCE BILL [address] [place] [address] * MAGNESIUM BLOOD (02/17/2025 8:14 AM CDT) Only the most recent of7 resultswithin the time period is included. Magnesium 1.7 1.6 - 2.3 mg/dL [facility] INSURANCE BILL Blood BLOOD SPECIMEN / Unknown 02/17/2025 8:14 AM CDT 02/17/2025 Narrative [facility] INSURANCE BILL - 02/18/2025 7:09 AM CDT Performed at: [address] [place] [id number] Mixed Animal Veterinarian: Miguel Nicholson PhD, Phone: [phone] Brian Dockery MD LAB - CHEMISTRY ORDERABLES Fin al Result Performing Organization Address City/[facility]/ZIP Co de Phone Number [facility] INSURANCE BILL [address] [place] [address] * HEPATITIS B SURFACE ANTIGEN W RFLX CONFIRMATION (02/17/2025 8:14 AM CDT) Hepatitis B Virus Surface Antigen Negative Negative [facility] INSURANCE BILL Blood BLOOD SPECIMEN / Unknown 02/17/2025 8:14 AM CDT 02/17/2025 Narrative [facility] INSURANCE BILL - 02/18/2025 7:09 AM CDT Performed at: 01 - [facility] [address] [facility], [place], [place] [id number] Mixed Animal Veterinarian: Miguel Nicholson PhD, Phone: [phone] us Brian Dockery MD LAB - CHEMISTRY ORDERABLES Fin al Result [facility] INSURANCE BILL [address] [place] [address] * CT Chest Wo Contrast (02/04/2025 8:47 AM CDT) Anatomical Region Laterality Modality Chest Computed Tomogra phy 02/04/2025 8:53 AM CDT Impressions 02/04/2025 9:44 AM CDT Impression: Evaluation of visceral and vascular structures is degraded due to lack of intravenous contrast administration. 1.Right lower lobe 1.4 x 1.7 cm subpleural nodule with architectural distortion. Malignant process cannot be excluded. Short-term follow-up in 3-6 months is recommended. 2.Approximately 11 mm measuring nodular calcification in the course of the LCx, may be suggestive of calcified aneurysm. For further evaluation dedicated coronary CTA is suggested. 3.Status post orthotopic liver transplant with biliary stents. 4.Splenomegaly. > Dictated by Jose Matson MD, PhD (regional vice president life sales). I, Yolis Sullivan MD have personally reviewed and interpreted this examination/study. > Interpreting Provider: Yolis Sullivan MD on 02/04/2025 9:44 AM Narrative 02/04/2025 9:44 AM CDT PROCEDURE: CT CHEST WO CONTRAST, DATE/TIME OF EXAM: 02/04/2025 8:47 AM, LOCATION [facility] INDICATION: Z85.05: History of hepatocellular carcinoma D84.9: Immunosuppressed status (HCC) Z94.4: S/P liver transplant (HCC) ADDITIONAL CLINICAL INFORMATION: Ordering Provider Reason For Exam: s/p liver txp; HCC surveillance Technologist Note: Additional: COMPARISON: MRI abdomen from 11/03/2024. CT abdomen pelvis from 08/20/2024. TECHNIQUE: CT of the chest was performed without contrast according to standard protocol. Findings: Evaluation of visceral and vascular structures is degraded due to lack of intravenous contrast administration. Lower Neck and Axillae: The thyroid gland is normal. No enlarged supraclavicular or axillary lymph nodes are identified. Airway, Lungs, and Pleura: The airway is patent. Right middle lobe and lingular atelectasis or scarring is present. The left hemithorax is clear. No pleural fluid or pneumothorax is present. Multiple pulmonary nodules as listed below: *Right upper lobe 2 mm subpleural pulmonary nodule (series 4 image 70). *Right lower lobe 1.4 x 1.7 cm subpleural solid nodule with architectural distortion (series 4 image 76). There is adjacent structures distortion and peripheral. Heart and Pericardium: The cardiac chambers are normal in size. No pericardial fluid or thickening is present. Approximately 11 mm measuring nodule calcification in the course of the LCx, may be suggestive of calcified aneurysm. For further evaluation dedicated coronary CTA is suggested. Mediastinum and Delores: No enlarged lymph nodes are present. Thoracic Vasculature: No vascular abnormality is present. Bones: No acute fracture or osseous lesion. Mild multilevel degenerative changes are seen in the spine. Soft Tissues: Normal. Upper Abdomen: Postsurgical changes of orthotopic liver transplant with biliary stents are present. Splenomegaly is present. Otherwise, the visible portions of the upper abdominal organs are normal. Procedure Note Yolis Sullivan MD - 02/04/2025 PROCEDURE: CT CHEST WO CONTRAST, DATE/TIME OF EXAM: 02/04/2025 8:47 AM, LOCATION [facility] INDICATION: Z85.05: History of hepatocellular carcinoma D84.9: Immunosuppressed status (HCC) Z94.4: S/P liver transplant (HCC) ADDITIONAL CLINICAL INFORMATION: Ordering Provider Reason For Exam: s/p liver txp; HCC surveillance Technologist Note: Additional: COMPARISON: MRI abdomen from 11/03/2024. CT abdomen pelvis from 08/20/2024. TECHNIQUE: CT of the chest was performed without contrast according to standard protocol. Findings: Evaluation of visceral and vascular structures is degraded due to lackof intravenous contrast administration. Lower Neck and Axillae: The thyroid gland is normal. No enlarged supraclavicular or axillarylymph nodes are identified. Airway, Lungs, and Pleura: The airway is patent. Right middle lobe and lingular atelectasis or scarring is present. The left hemithorax is clear. No pleural fluid or pneumothorax is present. Multiple pulmonary nodules as listed below: *Right upper lobe 2 mm subpleural pulmonary nodule (series 4 image 70). *Right lower lobe 1.4 x 1.7 cm subpleural solid nodule witharchitectural distortion (series 4 image 76). There is adjacent structures distortionand peripheral. Heart and Pericardium: The cardiac chambers are normal in size. No pericardial fluid orthickening is present. Approximately 11 mm measuring nodule calcification in the course of the LCx, may be suggestive of calcified aneurysm. For further evaluation dedicated coronary CTA is suggested. Mediastinum and Delores: No enlarged lymph nodes are present. Thoracic Vasculature: No vascular abnormality is present. Bones: No acute fracture or osseous lesion. Mild multilevel degenerativechanges are seen in the spine. Soft Tissues: Normal. Upper Abdomen: Postsurgical changes of orthotopic liver transplant with biliary stentsare present. Splenomegaly is present. Otherwise, the visible portions of the upper abdominal organs are normal. Impression: Evaluation of visceral and vascular structures is degraded due to lackof intravenous contrast administration. 1.Right lower lobe 1.4 x 1.7 cm subpleural nodule with architectural distortion. Malignant process cannot be excluded. Short-term follow-upin 3-6 months is recommended. 2.Approximately 11 mm measuring nodular calcification in the course ofthe LCx, may be suggestive of calcified aneurysm. For further evaluation dedicated coronary CTA is suggested. 3.Status post orthotopic liver transplant with biliary stents. 4.Splenomegaly. > Dictated by Jose Matson MD, PhD (regional vice president life sales). I, Yolis Sullivan MD have personally reviewed and interpreted this examination/study. > Interpreting Provider: Yolis Sullivan MD on 02/04/2025 9:44 AM Brian Dockery MD CT ORDERABLES Final Result * MRI Abdomen Wwo Contrast (02/04/2025 8:43 AM CDT) Anatomical Region Laterality Modality Abdomen Magnetic Resonan ce 02/04/2025 9:12 AM CDT Impressions 02/04/2025 10:51 AM CDT Impression: 1.Mild to moderate intrahepatic biliary dilation seen and there are are intact mural thickening and irregularity of outline. Post contrast images shows mural enhancement. Changes are predominant in the periportal region. 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 Compared to previous MRI examination, there is placement of biliary stent and minimal improvement of the bile duct dilation. 2.There is associated central parenchyma hyperplasia and heterogeneous enhancement suggesting cirrhotic changes in the graft. No significant surface nodularity seen. 3.Multiple enhancing observations noted in the right lobe of the liver, likely due to perfusion changes-LR3. Report dictated by Trish Severino MD (regional vice president life sales). I, Babita Andrade MD have personally reviewed and interpreted this examination/study. > Interpreting Provider: Babita Andrade MD on 02/04/2025 10:51 AM Narrative 02/04/2025 10:51 AM CDT PROCEDURE: MRI ABDOMEN WWO CONTRAST, DATE/TIME OF EXAM: 02/04/2025 8:43 AM, LOCATION [facility] INDICATION: Z85.05: History of hepatocellular carcinoma D84.9: Immunosuppressed status (HCC) Z94.4: S/P liver transplant (HCC) ADDITIONAL CLINICAL INFORMATION: Ordering Provider Reason For Exam: s/p liver txp; hcc surveillance Technologist Note: Additional: COMPARISON: MRI of the abdomen dated 11/03/2024. TECHNIQUE: MRI of the abdomen and pelvis was performed prior to and following the uneventful administration of 13 mL of Multihance intravenous gadolinium contrast according to standard protocol. Findings: Lower Chest: Right lower lobe opacity measuring up to 2 mm with adjacent atelectasis. Please see same-day CT chest for further evaluation. Hepatobiliary system Transplanted liver: Central hyperplasia with enlargement of the caudate lobe and widening of the fissure. The graft shows a smooth outline. Postcontrast arterial and delayed phase images show heterogeneous enhancement of the liver parenchyma, relatively hypoenhancement of the left lobe compatible with right lobe. Steatosis: None. Varices: Perisplenic varices. Spleen: Enlarged, measuring 16.4 cm in craniocaudal dimension. Redemonstration of innumerable small hypointense foci. Ascites: None. Focal liver observations Patchy hyperenhancement of the right hepatic lobe most notable in hepatic segment 8 without significant change from prior. Multiple arterial enhancement are noted in the right lobe, increased from prior (series 9, image 43) are present without washout or restricted diffusion LR-3. Hepatic vasculature Portal and hepatic veins: Portal vein anastomosis is patent, redemonstration of focal mild narrowing of the portal vein anastomosis (series 11, image 46). The hepatic venous/IVC anastomosis is patent. Arterial anatomy: Hepatic arterial anastomosis is patent and intrahepatic arterial branches are opacified. Gallbladder and bile ducts Gallbladder: Absent. Bile ducts: Redemonstration of biliary stent extending into the left hepatic duct. Interval mild improvement in the biliary dilation particularly in the left lobe. There are mild/moderate residual ductal dilation noted in both right and left lobes and associated with diffuse mural thickening and enhancement of the bile ducts (image 37 series 15). The ducts shows irregularity and narrowing near the chary (image 19 series 3). 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 Common bile measures 9 mm. The biliary stent is noted in the common bile duct otherwise no filling defects are seen. Retroperitoneum Pancreas: Normal. Adrenals: Normal. Kidneys: Normal. Lymph nodes: No lymphadenopathy. Gastrointestinal: Imaged bowel and mesentery are normal. Other findings: None. Procedure Note Babita Andrade MD - 02/04/2025 PROCEDURE: MRI ABDOMEN WWO CONTRAST, DATE/TIME OF EXAM: 02/04/2025 8:43 AM, LOCATION [facility] INDICATION: Z85.05: History of hepatocellular carcinoma D84.9: Immunosuppressed status (HCC) Z94.4: S/P liver transplant (HCC) ADDITIONAL CLINICAL INFORMATION: Ordering Provider Reason For Exam: s/p liver txp; hcc surveillance Technologist Note: Additional: COMPARISON: MRI of the abdomen dated 11/03/2024. TECHNIQUE: MRI of the abdomen and pelvis was performed prior to and following the uneventful administration of 13 mL of Multihanceintravenous gadolinium contrast according to standard protocol. Findings: Lower Chest: Right lower lobe opacity measuring up to 2 mm with adjacent atelectasis. Please see same-day CT chest for further evaluation. Hepatobiliary system Transplanted liver: Central hyperplasia with enlargement of the caudate lobe and widening of the fissure. The graft shows a smooth outline. Postcontrast arterial and delayed phase images show heterogeneous enhancement of the liver parenchyma, relatively hypoenhancement of theleft lobe compatible with right lobe. Steatosis: None. Varices: Perisplenic varices. Spleen: Enlarged, measuring 16.4 cm in craniocaudal dimension. Redemonstration of innumerable small hypointense foci. Ascites: None. Focal liver observations Patchy hyperenhancement of the right hepatic lobe most notable inhepatic segment 8 without significant change from prior. Multiple arterial enhancement are noted in the right lobe, increasedfrom prior (series 9, image 43) are present without washout or restricted diffusion LR-3. Hepatic vasculature Portal and hepatic veins: Portal vein anastomosis is patent, redemonstration of focal mild narrowing of the portal vein anastomosis (series 11, image 46). The hepatic venous/IVC anastomosis is patent. Arterial anatomy: Hepatic arterial anastomosis is patent andintrahepatic arterial branches are opacified. Gallbladder and bile ducts Gallbladder: Absent. Bile ducts: Redemonstration of biliary stent extending into the left hepatic duct. Interval mild improvement in the biliary dilation particularly in the left lobe. There are mild/moderate residual ductal dilation noted in both right and left lobes and associated with diffuse mural thickening and enhancement of the bile ducts (image 37 series 15). The ducts shows irregularity and narrowing near the chary (image 19series 3). 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 Common bile measures 9 mm. The biliary stent is noted in the common bile duct otherwise no filling defects are seen. Retroperitoneum Pancreas: Normal. Adrenals: Normal. Kidneys: Normal. Lymph nodes: No lymphadenopathy. Gastrointestinal: Imaged bowel and mesentery are normal. Other findings: None. Impression: 1.Mild to moderate intrahepatic biliary dilation seen and there are are intact mural thickening and irregularity of outline. Post contrastimages shows mural enhancement. Changes are predominant in the periportalregion. 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 Comparedto previous MRI examination, there is placement of biliary stent andminimal improvement of the bile duct dilation. 2.There is associated central parenchyma hyperplasia and heterogeneous enhancement suggesting cirrhotic changes in the graft. No significant surface nodularity seen. 3.Multiple enhancing observations noted in the right lobe of the liver, likely due to perfusion changes-LR3. Report dictated by Trish Severino MD (regional vice president life sales). I, Abdjen Andrade MD have personally reviewed and interpreted this examination/study. > Interpreting Provider: Babita Andrade MD on 0:51 AM Brian Dockery MD MR ORDERABLES Final Result * PHOSPHATIDYLETHANOL (PETH) (2025 8:22 AM CDT) Only the most recent of2 resultswithin the time period is included. PHOSPHATIDYLETHANOL Negative [facility] INSURANCE BILL Phosphatidylethanol (PEth) Negative ng/mL [facility] INSURANCE BILL Comment: Analyzed compound: PEth 16:0/18:1. 8-ptxnxvhba-2-etncdc-jw-yifscaf-3-phosphoethanol. Analysis performed by Liquid Chromatography with Tandem Mass Spectrometry (LC/MS/MS). Detection limit: 20 ng/mL PEth levels in excess of 20 ng/mL are considered evidence of moderate to heavy ethanol consumption. However, the Center for Substance Abuse Treatment (CSAT) advises caution in interpretation and use of biomarkers alone to assess alcohol use. Results should be interpreted in the context of all available clinical and behavioral information. Reference: Substance Abuse and Mental Health Services Administration (2012). The Role of Biomarkers in the Treatment of Alcohol Use Disorders , 2012 Revision. Advisory, Volume 11, Issue 2. This test was developed and its performance characteristics determined by [employer]. It has not been cleared or approved by the Food and Drug Administration. Blood BLOOD SPECIMEN / Unknown 2025 8:22 AM CDT 2025 Narrative [facility] INSURANCE BILL - 02/06/2025 1:09 PM CDT Performed at: [facility] [employer] [address] [place] [id number] Mixed Animal Veterinarian: Adore Poole [facility], Phone: [phone] Brian Dockery MD LAB - CHEMISTRY ORDERABLES Fin al Result [facility] INSURANCE BILL [address] [place] [address] * ERCP (01/29/2025 11:36 AM CDT) Report Endoscopy POC Endoscopy Department Report _ Patient Name: Julia Yeager Procedure Date: 01/29/2025 11:36 AM Date of : 1965 Classification: Outpatient Gender: Female Ethnicity: Not or Race: White _ Providers: Stas Aceves MD, Momo Park MD (Fellow) Referring MD: Procedure: ERCP Indications: Stent change, Post liver transplant assessment, Bile duct stricture Medications: Monitored Anesthesia Care, Indomethacin 100 mg [place] Patient Profile: This is a 59 year old female. Description of Procedure: After obtaining informed consent, the scope was passed under direct vision. Throughout the procedure, the patient's blood pressure, pulse, and oxygen saturations were monitored continuously. The Duodenoscope was introduced through the mouth, and advanced to the duodenum and used to inject contrast into the bile duct. The ERCP was accomplished without difficulty. The patient tolerated the procedure well. Dose: 246 mGy. The total fluoroscopy exposure time was 8.4 minutes. Findings: A headliner installer film of the abdomen was obtained. Two stents ending in the main bile duct were seen. The esophagus was successfully intubated under direct vision without detailed examination of the pharynx, larynx, and associated structures. A biliary sphincterotomy had been performed. The sphincterotomy appeared open. Two plastic biliary stents originating in the biliary tree were emerging from the major papilla. Two stents were removed from the biliary tree using a snare. Superficial cannulation of the bile duct was accomplished with the short-nosed traction sphincterotome. A wire was passed into the biliary tree. Contrast was injected into the biliary tree. I personally interpreted the bile duct images. There was brisk flow of contrast through the ducts. Image quality was excellent. Contrast extended to the entire biliary tree. Preparations were made for cholangiography using balloon occlusion technique. A balloon-tipped catheter was advanced into the bile duct. The balloon was inflated to 12 mm in size. Contrast was then injected into the biliary tree and opacified the entire biliary tree. The upper third of the main bile duct contained a single moderate stenosis less than 5 mm in length, at the anastomosis. As seen before, there is a dominant left hepatic duct with small branching off ducts from it to the right anterior and right posterior segments. The bile duct above the stricture was diffusely dilated to about 8 mm. Dilation of the stricture with a 6 mm balloon then an 8 mm balloon dilator was successful. The biliary tree was swept with a 12 mm balloon starting at the bifurcation. Sludge was swept from the duct. One 10 Fr by 7 cm transpapillary biliary stent with a full external pigtail and a full internal pigtail was placed into the left hepatic duct. Bile flowed through the stent. The stent was in good position. One 10 Fr by 15 cm transpapillary biliary stent with a single external flap and a single internal flap was placed into the left hepatic duct. Bile flowed through the stent. The stent was in good position. Estimated Blood Loss: Estimated blood loss was minimal. Complications: No immediate complications. Impression: - Prior biliary sphincterotomy appeared open, Two stents from the biliary tree were seen in the major papilla, they were removed. - ERC showed a single moderate biliary stricture was seen near the hilum at the anastomosis which was dilated up to 8 mm. The CBD was swept. Sludge was removed. Two 10 Fr Stents were placed. Recommendation: - Patient has a contact number available for emergencies. The signs and symptoms of potential delayed complications were discussed with the patient. Return to normal activities tomorrow. Written discharge instructions were provided to the patient. - Discharge patient to home. - Resume previous diet. - Repeat ERCP in 3 months for stent revision. - Symptoms and signs that should prompt immediate attention, seeking medical care and contacting us were discussed with the patient and/or family and they include: sudden onset of severe abdominal pain, recurrence of jaundice after resolution, fevers and chills, passing black stools or blood, and vomiting blood or coffee ground material. - Check liver enzymes (AST, ALT, alkaline phosphatase, bilirubin) in 1 week. Attending Participation: I was present and participated during the entire procedure, including non-horvath portions. Procedure Code(s): --- Professional --- 97015, Endoscopic retrograde cholangiopancreatography (ERCP); with removal and exchange of stent(s), biliary or pancreatic duct, including pre- and post-dilation and guide wire passage, when performed, including sphincterotomy, when performed, each stent exchanged 39110, 59, Endoscopic retrograde cholangiopancreatography (ERCP); with removal and exchange of stent(s), biliary or pancreatic duct, including pre- and post-dilation and guide wire passage, when performed, including sphincterotomy, when performed, each stent exchanged 29957, 59, Endoscopic retrograde cholangiopancreatography (ERCP); with trans-endoscopic balloon dilation of biliary/pancreatic duct(s) or of ampulla (sphincteroplasty), including sphincterotomy, when performed, each duct 38703, Endoscopic retrograde cholangiopancreatography (ERCP); with removal of calculi/debris from biliary/pancreatic duct(s) Diagnosis Code(s): --- Professional --- Z96.89, Presence of other specified functional implants K91.89, Other postprocedural complications and disorders of digestive system K83.1, Obstruction of bile duct K80.50, Calculus of bile duct without cholangitis or cholecystitis without obstruction Z46.59, Encounter for fitting and adjustment of other gastrointestinal appliance and device Z09, Encounter for follow-up examination after completed treatment for conditions other than malignant neoplasm Z94.4, Liver transplant status CPT copyright 2021 [employer]. All rights reserved. The codes documented in this report are preliminary and upon clinical coder review may be revised to meet current compliance requirements. Stas Aceves MD 01/30/2025 6:28:21 AM This report has been signed electronically. Note Initiated On: 01/29/2025 11:36 AM Number of Addenda: [id number] [place] [address] PROVATION 01/29/2025 11:3 6 AM CDT Stas Aceves MD GI PROCEDURE ORDERABLES Edited R esult - Final [facility] PR[employer]ATION * TSH (12/09/2024 8:46 AM CREDIT CORRESPONDENCE CLERK) Pathologist [facility] TSH 2.330 0.450 - 4.500 uIU/mL [facility] INSURANCE BILL Blood BLOOD SPECIMEN / Unknown 12/09/2024 8:46 AM CREDIT CORRESPONDENCE CLERK 12/09/2024 Narrative [facility] INSURANCE BILL - 12/10/2024 9:10 AM CREDIT CORRESPONDENCE CLERK Performed at: [address] [place] [id number] Mixed Animal Veterinarian: Miguel Nicholson PhD, Phone: [phone] Nikia Fishman APRN-BUSINESS TRANSFORMATION CONSULTANT LAB - CHEMISTRY ORDERABL ES Final Result Performing Organization Address City/[facility] [address] [facility]/[place] Co de Phone Number [facility] INSURANCE BILL [address] [place] [address] * QUANTIFERON TB-GOLD (12/09/2024 8:45 AM CREDIT CORRESPONDENCE CLERK) [facility] QuantiFERON Incubation Incubation performed. [facility] INSURANCE BILL QuantiFERON-TB Gold Plus Negative Negative [facility] INSURANCE BILL Comment: No response to M tuberculosis antigens detected. Infection with M tuberculosis is unlikely, but high risk individuals should be considered for additional testing (ATS/IDSA/CDC Clinical Practice Guidelines, 2017). The reference range is an Antigen minus Nil result of <0.35 IU/mL. Chemiluminescence immunoassay methodology Performed at: [address] [place] [id number] Mixed Animal Veterinarian: Miguel Nicholson PhD, Phone: [phone] QuantiFERON Criteria Comment [facility] INSURANCE BILL Comment: QuantiFERON-TB Gold Plus is a qualitative indirect test for M tuberculosis infection (including disease) and is intended for use in conjunction with risk assessment, radiography, and other medical and diagnostic evaluations. The QuantiFERON-TB Gold Plus result is determined by subtracting the Nil value from either TB antigen (Ag) value. The Mitogen tube serves as a control for the test. QuantiFERON TB1 Ag Value 0.04 IU/mL [facility] INSURANCE BILL QuantiFERON TB2 Ag Value 0.05 IU/mL [facility] INSURANCE BILL QuantiFERON Nil Value 0.03 IU/mL [facility] INSURANCE BILL QuantiFERON Mitogen Value 2.28 IU/mL [facility] INSURANCE BILL 12/09/2024 8:45 AM CREDIT CORRESPONDENCE CLERK 12/09/2024 Narrative [facility] INSURANCE BILL - 12/11/2024 3:09 PM CREDIT CORRESPONDENCE CLERK Performed at: - [facility] [address] [id number] Mixed Animal Veterinarian: Miguel Nicholson PhD, Phone: [phone] us Nikia Fishman APRN-BUSINESS TRANSFORMATION CONSULTANT LAB - CHEMISTRY ORDERABL ES Final Result Performing Organization Address [facility] [address] [facility] de Phone Number [facility] INSURANCE BILL [address] [place] [address] * REF LAB-SPECIMEN STATUS REPORT (11/25/2024 12:01 PM CREDIT CORRESPONDENCE CLERK) Only the most recent of2 resultswithin the time period is included. Specimen Status Report Comment [facility] INSURANCE BILL Comment: Written Authoriz RCV Written Authoriz RCV WRITTEN AUTHORIZATION RECEIVED. AUTHORIZATION RECEIVED FROM DESI NICHOLSON 12-01-2024 LOGGED BY KEY STOUT 11/25/2024 12:0 1 PM CREDIT CORRESPONDENCE CLERK 11/25/2024 Narrative [facility] INSURANCE BILL - 12/01/2024 10:07 AM CREDIT CORRESPONDENCE CLERK Performed at: - [facility] [address] [id number] Mixed Animal Veterinarian: Miguel Nicholson PhD, Phone: [phone] Brian Dockery MD LAB - CHEMISTRY ORDERABLES Fin al Result Performing Organization Address [facility] [address] [facility]/[employer] Co de Phone Number [facility] INSURANCE BILL [address] [place] [address] * HEPATITIS C RNA QUANTITATIVE (11/25/2024 12:01 PM CREDIT CORRESPONDENCE CLERK) Hepatitis C Virus Quantitation HCV Not Detected IU/mL [facility] INSURANCE BILL Test Information Comment [facility] INSURANCE BILL Comment:The quantitative ran ge of this assay is 15 IU/mL to 100 million IU/mL. 11/25/2024 12:0 1 PM CREDIT CORRESPONDENCE CLERK 11/25/2024 Narrative [facility] INSURANCE BILL - 11/30/2024 7:06 AM CREDIT CORRESPONDENCE CLERK Performed at: [address] [place] [phone] Mixed Animal Veterinarian: Barbara Payne MD, Phone: [phone] us Brian Dockery MD LAB - CHEMISTRY ORDERABLES Fin al Result Performing Organization Address City/[facility] [address]/ZIP Co de Phone Number [facility] INSURANCE BILL [address] [place] [address] * HIV-1 HIV-2 ANTIBODY + HIV P24 AG PANEL (02/20/2024 8:24 AM CDT) HIV Antigen/Antibod y 1 & 2 Non-reacti ve Non-react timothy 02/20/2024 9:38 AM CDT [facility] Comment:No Laboratory eviden ce of HIV infection. Blood BLOOD SPECIMEN / Unknown Lab Venipuncture / Unknown 02/20/2024 8:24 AM CDT 02/20/2024 8:41 AM CDT us Carlos Alberto Coreas MD LAB - CHEMISTRY ORDERA BLES Final Result Performing Organization Address City/[facility] [address]/ZIP Co de Phone Number [facility] [facility] [address] [place] [address], [facility] [phone] * MAMMO BILAT SCREENING W SRIDEVI (01/01/2024 1:01 PM CDT) Anatomical Region Laterality Modality Breast Bilateral Mammography 01/01/2024 1:37 PM CDT Impressions 01/01/2024 1:38 PM CDT : No mammographic evidence of malignancy. RECOMMENDATION: Screening mammography in one year, pending no interval breast concerns. Patient will be notified of the results by lay letter. OVERALL ASSESSMENT: BI-RADS CATEGORY 1: NEGATIVE. > Interpreting Provider: Radha Saldana MD on 01/01/2024 1:38 PM Narrative 01/01/2024 1:38 PM CDT EXAMINATION: DIGITAL MAMMO BILAT SCREENING W SRIDEVI AND WITH CAD DATE: 01/01/2024 HISTORY: Screening. This exam is for pretransplant evaluation RISK ASSESSMENT CALCULATION: Patient completed a breast cancer risk assessment during her appointment on 09/12/2022. Based upon the information she provided and her mammographic breast density, her lifetime risk of developing breast cancer is 15 % (Average Risk <15%; Intermediate / Moderate Risk 15-19%; High Risk > 20%). Risk assessment was not completed today due to systemic grade. COMPARISON: Multiple studies dating back to 2016 with the most recent dated 09/12/2022 TECHNIQUE: Tomosynthesis (3D) and reconstructed synthetic 2-D images acquired and reviewed in the bilateral craniocaudal and mediolateral oblique projections, with a total of 5 images obtained. Computer-aided detection (CAD) was utilized. BREAST PARENCHYMAL COMPOSITION: Category B: There are scattered areas of fibroglandular density. FINDINGS: FINDINGS: There are no suspicious findings or evidence of malignancy on mammography. There is no significant change from the prior. us Nikia Fishman BOAT FINISHER-BUSINESS TRANSFORMATION CONSULTANT MAMMO ORDERABLES Final R esult * (ABNORMAL) LIPID PROFILE (12/12/2023 3:37 PM CREDIT CORRESPONDENCE CLERK) Cholesterol Total 176 <200 mg/dL 12/12/2023 4:37 PM [facility] HDL 21(L) >40 mg/dL 12/12/2023 4:37 PM [facility] Comment: ATP III Classification of HDL Cholesterol: <40 mg/dL: Considered a major risk factor. >60 mg/dL: Considered a negative risk factor. LDL Calculated 135(H) <100 mg/dL 12/12/2023 4:37 PM [facility] Comment: ATP III Classification of LDL Cholesterol: <100 mg/dL: Optimal 100 - 129 mg/dL: Near Optimal/Above Optimal 130 - 159 mg/dL: Borderline High 160 - 189 mg/dL: High >190 mg/dL: Very High Triglycerides 98 <150 mg/dL 12/12/2023 4:37 PM [facility] Comment: ATP III Classification of Triglycerides: <150 mg/dL: Normal 150 - 199 mg/dL: Borderline High 200 - 400 mg/dL: High >500 mg/dL: Very High Blood BLOOD SPECIMEN / Unknown Lab Venipuncture / Unknown 12/12/2023 3:37 PM CREDIT CORRESPONDENCE CLERK 12/12/2023 4:12 PM CREDIT CORRESPONDENCE CLERK us Brian Dockery MD LAB - CHEMISTRY ORDERABLES Fin al Result [facility] [address] [place] [address], [facility] [phone] * ENDOSCOPY, COLON, DIAGNOSTIC (04/21/2020 7:43 AM CDT) Report Endoscopy POC _ Patient Name: Julia Shobha Procedure Date: 04/21/2020 7:43 AM Date of : 1965 Admit Type: Inpatient Age: 55 Gender: Female Attending MD: Francesco Ramirez MD _ Procedure: Colonoscopy Indications: Chronic diarrhea Providers: Francesco Ramirez MD (Doctor) Medicines: Monitored Anesthesia Care Complications: No immediate complications. Estimated blood loss: None. _ Procedure: Pre-Anesthesia Assessment: - Prior to the procedure, a History and Physical was performed, and patient medications and allergies were reviewed. The patient is competent. The risks and benefits of the procedure and the sedation options and risks were discussed with the patient. All questions were answered and informed consent was obtained. Patient identification and proposed procedure were verified by the physician, the nurse and the code inspector in the procedure room. Mental Status Examination: alert and oriented. Airway Examination: normal oropharyngeal airway and neck mobility. Respiratory Examination: clear to auscultation. CV Examination: normal. Prophylactic Antibiotics: The patient does not require prophylactic antibiotics. Prior Anticoagulants: The patient has taken no previous anticoagulant or antiplatelet agents. ASA Grade Assessment: III - A patient with severe systemic disease. After reviewing the risks and benefits, the patient was deemed in satisfactory condition to undergo the procedure. The anesthesia plan was to use monitored anesthesia care (MAC). Immediately prior to administration of medications, the patient was re-assessed for adequacy to receive sedatives. The heart rate, respiratory rate, oxygen saturations, blood pressure, adequacy of pulmonary ventilation, and response to care were monitored throughout the procedure. The physical status of the patient was re-assessed after the procedure. After I obtained informed consent, the scope was passed under direct vision. Throughout the procedure, the patient's blood pressure, pulse, and oxygen saturations were monitored continuously. The Colonoscope was introduced through the anus and advanced to the cecum, identified by appendiceal orifice and ileocecal valve. The colonoscopy was performed without difficulty. The patient tolerated the procedure well. The quality of the bowel preparation was fair. The ileocecal valve, appendiceal orifice, and rectum were photographed. Findings: The digital rectal exam findings include non-thrombosed external hemorrhoids. Pertinent negatives include no palpable rectal lesions. A diffuse area of moderately congested mucosa was found in the rectum, in the sigmoid colon, in the descending colon, in the transverse colon, in the ascending colon, in the cecum, appendiceal orifice and at the ileocecal valve. Biopsies were taken with a cold forceps for histology. _ Impression: - Preparation of the colon was fair. - Non-thrombosed external hemorrhoids found on digital rectal exam. - Congested mucosa in the rectum, in the sigmoid colon, in the descending colon, in the transverse colon, in the ascending colon, in the cecum, at the appendiceal orifice and at the ileocecal valve. Biopsied. Recommendation: - Repeat colonoscopy in 5 years for surveillance given quality of the prep. - Await pathology results. The edematous mucosa is suspicious for portal hypertension changes vs microscopic colitis. - Resume previous diet. - Continue present medications. - Return patient to [facility] for ongoing care. Procedure Code(s): --- Professional --- 61342, Colonoscopy, flexible; with biopsy, single or multiple --- Technical --- 46827, Colonoscopy, flexible; with biopsy, single or multiple Diagnosis Code(s): --- Professional --- K64.4, Residual hemorrhoidal skin tags K62.89, Other specified diseases of anus and rectum K63.89, Other specified diseases of intestine K52.9, Noninfective gastroenteritis and colitis, unspecified --- Technical --- K64.4, Residual hemorrhoidal skin tags K62.89, Other specified diseases of anus and rectum K63.89, Other specified diseases of intestine K52.9, Noninfective gastroenteritis and colitis, unspecified CPT copyright 2017 [employer]. All rights reserved. The codes documented in this report are preliminary and upon clinical coder review may be revised to meet current compliance requirements. Dr. Francesco Ramirez MD Francesco Ramirez MD 04/21/2020 8:34:51 AM This report has been signed electronically. Number of Addenda: 0 Note Initiated On: 04/21/2020 7:43 AM [facility] ENDOSCOPY 04/21/2020 7:43 AM CDT us Francesco Ramirez MD GI PROCEDURE ORDERABLES Jerel yeison Result - [place] [address] from Last 3 Months or Most Recently Relevant to Health Maintenance Insurance [facility] Advance Directives * Full Code (Latest Code Status on File) Date Activated Date Inactivated Comments 09/25/2024 7:39 PM 09/30/2024 2:17 PM * Full Code Date Activated Date Inactivated Comments 08/19/2024 5:12 PM 08/29/2024 1:05 PM * Full Code Date Activated Date Inactivated Comments 07/24/2024 7:53 PM 08/08/2024 2:33 PM * Full Code Date Activated Date Inactivated Comments 04/25/2024 7:27 PM 04/27/2024 5:50 PM * Full Code Date Activated Date Inactivated Comments 02/09/2024 2:52 PM 02/18/2024 6:23 PM Care Teams Parking Line Painter Relationship Specialty Start Date End Date Nikia Fishman APRN-JAQUELINE [address] [address] PCP - General Nurse Practitioner 10/23/23 Pacheco Hyman MD Brand Advisor/Oncologist Hematology and Oncology 03/21/19 Allegra Mejias APRN-CNP [address] [address] Advance Practice Nurse Hematology and Oncology 03/21/19 Rickie Dejesus MD [address] [address] Power Plant Technician Pulmonary Disease 11/28/23
--- OUTSIDE RECORDS SUMMARY | 2025-02-21 16:35 | XMS_ITS | Encounter Summary ---
Author Organization [facility] Address [address] [place] [address] Care Team Providers Care Playground Aide Name Role Phone Pacheco Hyman MD Unavailable [phone] Allegra Mejias INSTRUCTIONAL SUPPORT ASSISTANT-JOINERY FACTORY WORKER Unavailable Pcp, Lino Scott Primary Care Provider Unav ailable None, Physician Primary Care Provider Unavailabl e Nikia Fishman INSTRUCTIONAL SUPPORT ASSISTANT-JOINERY FACTORY WORKER Primary Care Provider + Nikia Fishman INSTRUCTIONAL SUPPORT ASSISTANT-JOINERY FACTORY WORKER Primary Care Provider + Rickie Dejesus MD Unavailable Reason for Visit * Reason Onset Date Comments MEDICATION REFILL 09/10/2023 Encounter Details Date Type Department Care Team (Late st Contact Info) Description 09/10/2023 Refill [facility] - GI [address] [place] [address], [place] [phone] Brian Dockery MD [address] [place] [address] [place] [address] MEDICATION REFILL Social History Tobacco Use Types Packs/Day Years Used Date Smoking Tobacco: Former Cigarettes 1.5 15 0 1978 - 1993 Smokeless Tobacco: Never Alcohol Use Standard Drinks/Week Comments Not Currently 0 (1 standard drink = 0.6 oz pur e alcohol) AUDIT-C Answer Date Recorded Frequency of Alcohol Consumption 2-4 times a mon th 08/12/2019 Average Number of Drinks Not on file 019 Frequency of Binge Drinking Not on file 07/23 PHQ-2 Answer Date Recorded PHQ2 TOTAL SCORE 0 04/06/2022 Comments No Sex and Gender Information Value Date Recorded Sex Assigned at Not on file Legal Sex Female 6:28 AM PARI MUTUEL TICKET SELLER Gender Identity Not on file Sexual Orientation Lesbian 02/08/2024 4: 10 AM CDT 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 Answer Entry Date Author No 06/28/2023 2:48 PM WEST Kristine Armendariz RN documented in this encounter Plan of Treatment Upcoming Encounters Date Type Department Care Team (Latest Contact Info) Description 03/17/2025 10:00 AM CDT Office Visit [facility] - Hematology/Oncol ogy [address] [place] [address] Loida Veras MD [address] [place] [address] 03/26/2025 3:40 PM CDT Appointment [facility] CAT SCAN [address] [place] [address] Brian Dockery MD [address] [place] [address] [address]L [place] [address] 04/08/2025 10:00 AM CDT Office Visit [facility] - Dermatology [address] [place] [phone] Quoc Willams MD [address] [place] [address] 3L [place] [address] 04/27/2025 8:30 AM CDT Office Visit [facility] - GI [address] [place] [phone] Brian Dockery MD [address] [place] [address] [address] [place] [address] 05/07/2025 11:00 AM CDT Hospital Encounter [facility] ENDOSCOPY [facility] [place] [address] Stas Aceves MD [facility] [place] [phone] Surgery General 05/07/2025 11:00 AM CDT - 05/07/2025 12:00 PM CDT Surgery [facility] ENDOSCOPY [facility] [place] [address] Stas Aceves MD [facility] [place] [phone] ENDOSCOPIC RETROGRADE CHOLANGIOPANCREATOGRAPHY (ERCP) 05/11/2025 6:30 AM CDT Appointment [facility] MRI [address] [place] [address] Brian Dockery MD [address] [place] [address] [address] [place] [address] 05/21/2025 11:00 AM CDT Hospital Encounter [facility] ENDOSCOPY [address] [place] [address] Brian Dockery MD [address] [place] [address] [address] [place] [address] Surgery General 05/21/2025 11:00 AM CDT - 05/21/2025 11:45 AM CDT Surgery [facility] ENDOSCOPY [address] [place] [address] Brian Dockery MD [address] [place] [address] [address] [place] [address] COLONOSCOPY SCREEN w/ liam 06/03/2025 9:00 AM CDT Office Visit [facility] - Internal Med [address] [place] [address], [place] [address] Nikia Fishman, INSTRUCTIONAL SUPPORT ASSISTANT-JOINERY FACTORY WORKER [address] [place] [address] 2[address] [place] [address] Scheduled Procedures Name Priority Associated Diagnoses Date/Ti me ENDOSCOPIC RETROGRADE CHOLANGIOPANCREATOGRAPHY (ERCP) Encounter for removal of biliary stent 05/07/2025 11:00 AM CDT COLONOSCOPY SCREEN Screen for colon cancer 05/21/2025 11:00 AM CDT documented as of this encounter Goals Goal Patient Goal Type Associated Problems Recent Progress Patient-Stated? Author Medication Management General On track( 025 2:37 PM CDT) No Darlene Torres RN Note: Expected end date: ongoing Interventions: [...] documented as of this encounter Care Teams Playground Aide Relationship Specialty Start Date End Date PcpLino PCP - General 05/18/23 09/17/23 None, Physician [facility] [place] [address] PCP - General 09/18/23 10/17/23 Nikia Fishman INSTRUCTIONAL SUPPORT ASSISTANT-JOINERY FACTORY WORKER [facility] [phone] PCP - General Nurse Practitioner 10/18/23 10/22/23 Nikia Fishman INSTRUCTIONAL SUPPORT ASSISTANT-JOINERY FACTORY WORKER [address] [place] [phone] PCP - General Nurse Practitioner 10/23/23 Pacheco Hyman MD Ventilation Worker/Oncologist Hematology and Oncology 03/21/19 Allegra Mejias, INSTRUCTIONAL SUPPORT ASSISTANT-JOINERY FACTORY WORKER [address] [address] Advance Practice Nurse Hematology and Oncology 03/21/19 Rickie Dejesus MD [address] [address] Surface Plate Finisher Pulmonary Disease 11/28/23 documented as of this encounter
--- OUTSIDE RECORDS SUMMARY | 2025-02-21 16:35 | XMS_ITS | Encounter Summary ---
Author Organization [facility] Address [address] [place] [address] Care Team Providers Care Financial Cost Analyst Name Role Phone Pacheco Hyman MD Unavailable [phone] Allegra Mejias SERVICE CASHIER-HEAD NURSE Unavailable Nikia Fishman SERVICE CASHIER-HEAD NURSE Primary Care Provider + Rickie Dejesus MD Unavailable Reason for Visit * Reason Onset Date Comments MEDICATION REFILL 02/06/2024 Encounter Details Date Type Department Care Team (Late st Contact Info) Description 02/06/2024 Refill [facility] - Internal Med [address] [facility], [place] [address] Nikia Fishman, SERVICE CASHIER-HEAD NURSE [facility] [phone] MEDICATION REFILL Social History Tobacco Use [...] Answer Date Recorded Patient Health Questionnaire-2 Score 1 01/24/2024 [facility] - Occupational Stress [...] place to sleep or slept in a skilled nursing (including now)? 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 C[facility] 3l 11/13/23 Office Visit Brian Dockery MD [facility] 3l 05/08/23 Office Visit Brian Dockery MD [facility] C[facility] 3l 10/30/22 Office Visit Brian Dockery MD [facility] C[facility] 3l 09/26/22 Office Visit Brian Dockery MD [facility] Gi C[facility] 3l Showing recent visits within past 540 days with a meds authorizing provider and meeting all other requirements Future Appointments Date Type Provider Dept 04/08/24 Appointment Brian Dockery MD [facility] Gi Csm 3l 04/09/24 Appointment Yue Olivas PA-C [facility] 3l 04/11/24 Appointment Nikia Fishman APRN-HEAD NURSE [facility] 06/25/24 Appointment Rodolfo Betts III, MD [facility] 3l Showing future appointments within next 150 days with a meds authorizing provider and meeting all other requirements Last Refill: 12.10.23 Allergies: No Known Allergies Pended Medication Order: Requested Prescriptions Pending Prescriptions Disp Refills ??? furosemide (Lasix) 20 MG tablet 90 tablet 0 Sig: Take 3 (three) tablets by mouth once daily documented in this encounter Plan of Treatment Upcoming Encounters Date Type Department Care Team (Latest Contact Info) Description 03/17/2025 10:00 AM CDT Office Visit [facility] - Hematology/Oncol [facility] [address] [place] [address] Loida Veras MD [address] [place] [address] 03/26/2025 3:40 PM CDT Appointment [facility] CAT SCAN [address] [place] [address] Brian Dockery MD [address] [place] [address] [address] [place] [address] 04/08/2025 10:00 AM CDT Office Visit [facility] - Dermatology [address] [place] [phone] Quoc Willams MD [address] [place] [address] 3L [place] [address] 04/27/2025 8:30 AM CDT Office Visit [facility] - GI [address] [place] [phone] Brian Dockery MD [address] [place] [address] [address] [place] [address] 05/07/2025 11:00 AM CDT Hospital Encounter [facility] END[facility] [address] [place] [address] Stas Aceves MD [address] [place] [phone] Surgery General 05/07/2025 11:00 AM CDT - 05/07/2025 12:00 PM CDT Surgery [facility] [address] [place] [address] Stas Aceves MD [address] [place] [phone] ENDOSCOPIC RETROGRADE CHOLANGIOPANCREATOGRAPHY (ERCP) 05/11/2025 6:30 AM CDT Appointment [facility] MRI [address] [place] [phone] Brian Dockery MD [address] [place] [address] [address] [place] [address] 05/21/2025 11:00 AM CDT Hospital Encounter [facility] END[facility] [place] [address] Brian Dockery MD [address] [place] [address] [address] [place] [address] Surgery General 05/21/2025 11:00 AM CDT - 05/21/2025 11:45 AM CDT Surgery [facility] [address] [place] [phone] Brian Dockery MD [address] [place] [address] [address] [place] [address] COLONOSCOPY SCREEN w/ liam 06/03/2025 9:00 AM CDT Office Visit [facility] - Internal Med [address] [place] [address], [facility] [place] [address] Nikia Fishman APRN-HEAD NURSE [address] [phone] Scheduled Procedures Name Priority Associated Diagnoses Date/Ti [...] documented as of this encounter Care Teams Financial Cost Analyst Relationship Specialty Start Date End Date Nikia Fishman APRN-HEAD NURSE [address] [phone] PCP - General Nurse Practitioner 10/23/23 Pacheco Hyman MD Accounting Clerk/Oncologist Hematology and Oncology 03/21/19 Allegra Mejias APRN-HEAD NURSE [address] [address] Advance Practice Nurse Hematology and Oncology 03/21/19 Rickie Dejesus MD [address] [address] International Account Executive Pulmonary Disease 11/28/23 documented as of this encounter
--- OUTSIDE RECORDS SUMMARY | 2025-02-21 16:35 | XMS_ITS ---
Author Organization [facility] Address [address] [facility] [place] [address] Care Team Providers Care Salvationist Name Role Phone Pacheco Hyman MD Unavailable [phone] Allegra Mejias LIVE TRUCK TECHNICIAN-AIR TRAFFIC COORDINATOR Unavailable Nikia Fishman LIVE TRUCK TECHNICIAN-AIR TRAFFIC COORDINATOR Primary Care Provider + Rickie Dejesus MD Unavailable Transplant Episode Liver Recipient [facility], [place] - [facility] Organ Received: Liver Transplanted on 02/09/2024 Marked as Active Follow-up on 02/09/2024 Liver CoordinatorDesi Reinoso RN Phone: N/A Fax: N/A Email: N/A [place] Organ Diagnosis Organ Primary Contributory Liver Cirrhosis: Fatty Liver (SHOEMAKER) Donor Information Organ ABO Source Meets Risk Criteria HLA Match Mismatches Cross Match Liver Transplanted B DCD No A: B: DR: Liver Donor Serology Results Anti-CMV No results on file EBV IgG No results on file Anti-HBcAb No results on file HBsAg No results on file HBV DNA No results on file Anti-HCV No results on file Anti-HIV I/II No results on file Anti-HTLV I/II No results on file RPR/VDRL No results on file EBV IgM No results on file HBsAb No results on file Toxoplasma No results on file SARS CoV-2 No results on file Care Team Name Role Phone Fax Email Desi Reinoso RN Liver Coordinator N/A N/A N/A Brian Dockery MD Transplant Photostatic Copy Maker [phone] N/A Francesco Ramirez MD Referring Physician [phone] N/A Joyce Bear Glass Cutter N/A N/A N/A Events Post-Transplant Pre-Transplant Admitted: 02/08/2024 Referred: 11/13/2023 Transplanted: 02/09/2024 Evaluation began: 4 Discharged: 02/18/2024 Committee: 01/22/2024 Center waitlisted: 4
--- OUTSIDE RECORDS SUMMARY | 2025-02-21 16:35 | XMS_ITS | Clinical Summary ---
Author Organization [facility] Address [address] [place] [address] Care Team Providers Care Relay Assembler Name Role Phone No, Physician Primary Care Provider [phone] Allergies No known active allergies Medications hyaluronate [...] on file Legal Sex Female 9:45 AM COIL WINDER Gender Identity Not on file Sexual Orientation Not on file Obstetrics History Last Filed Vital Signs Vital Sign Reading Time Taken Comments Blood Pressure - - Pulse - - Temperature - - Respiratory Rate - - Oxygen Saturation - - Inhaled Oxygen Concentration - - Weight 120.2 kg (265 lb) 06/07/2023 10:03 AM CDT Height 162.6 cm (5' 4 ) 06/07/2023 10:03 AM CDT Body Mass Index 45.49 06/07/2023 10:03 AM CDT Plan of Treatment Health Maintenance Due Date Last Done Comments Cervical Cancer Screening 1963 Colon Cancer Screening-Colonoscopy 1963 Depression Screening 1963 Hepatitis C Screening 1963 DTaP/Tdap/Td Vaccine (1 - Tdap) 1974 Hepatitis B Screening 1981 Regular Well Visit/Exam 18-64 1981 Zoster Vaccine (1 of 2) 2013 Breast Cancer Screening-Mammogram 02/19/2019 02/19/2018 Covid-19 Vaccine (2023-2 5 season) 2024 02/12/2021, 01/22/2021 Influenza Vaccine (Season Ended) 2025 Pneumococcal vaccine <65 Aged Out No longer eligible based on patient's age to complete this topic Procedures Procedure Name Priority Date/Time Associated Diagnosis [...] Most Recently Relevant to Health Maintenance Insurance [facility] CHOICE PLUS Care Teams Relay Assembler Relationship Specialty Start Date End Date No, Physician PCP - General 03/12/17
--- OUTSIDE RECORDS SUMMARY | 2025-02-21 16:35 | XMS_ITS | Encounter Summary ---
Author Organization [facility] Address [address] [place] [address] Care Team Providers Care Extension Agent Name Role Phone Pacheco Hyman MD Unavailable [phone] Allegra Mejias COORDINATOR OF GENETIC SERVICES-SUPERVISOR PHOSPHATIC FERTILIZER Unavailable Nikia Fishamn COORDINATOR OF GENETIC SERVICES-SUPERVISOR PHOSPHATIC FERTILIZER Primary Care Provider + Rickie Dejesus MD Unavailable Reason for Visit * Reason Onset Date Comments MEDICATION REFILL 02/06/2024 Encounter Details Date Type Department Care Team (Late st Contact Info) Description 02/06/2024 Refill [facility] [place] [id number] [place] [address] Cameron Diaz DO [address] [facility] [place] [address] MEDICATION REFILL Social History Tobacco [...] Recorded Patient Health Questionnaire-2 Score 1 01/24/2024 [facility] of Occupat ional Health - Occupational Stress [...] slept in a usp (including now)? 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 [...] Description 03/17/2025 10:00 AM CDT Office Visit [facility] - Hematology/Oncol [facility] [place] [address] [place] [address] Loida Veras MD [address] [place] [phone] 03/26/2025 3:40 PM CDT Appointment [facility] CAT SCAN [address] [place] [address] Brian Wheeler MD [address] [place] [address] [address] [facility] [place] [address] 04/08/2025 10:00 AM CDT Office Visit [facility] - Dermatology [address] [place] [address], [place] [address] [place] [address] [place] [address] 3[address] [place] [phone] 04/27/2025 8:30 AM CDT Office Visit [facility] - GI [address] [facility] [place] [address] Brian Wheeler MD [address] [place] [address] 2L [place] [address] 05/07/2025 11:00 AM CDT Hospital Encounter [facility] ENDOSCOPY [address] [place] [address] Stas Aceves MD [address] [place] [phone] Surgery General 05/07/2025 11:00 AM CDT - 05/07/2025 12:00 PM CDT Surgery [facility] ENDOSCOPY [address] [place] [phone] Stas Aceves MD [address] [place] [phone] ENDOSCOPIC RETROGRADE CHOLANGIOPANCREATOGRAPHY (ERCP) 05/11/2025 6:30 AM CDT Appointment [facility] MRI [address] [place] [address] Brian Wheeler MD [address] [place] [address] [address] [place] [address] 05/21/2025 11:00 AM CDT Hospital Encounter [facility] ENDOSCOPY [facility] [place] [address] Brian Wheeler MD [address] [place] [address] [address] [place] [address] Surgery General 05/21/2025 11:00 AM CDT - 05/21/2025 11:45 AM CDT Surgery [facility] ENDOSCOPY [address] [place] [phone] Brian Wheeler MD [address] [place] [address] 2[address] [place] [address] COLONOSCOPY SCREEN w/ wheeler 06/03/2025 9:00 AM CDT Office Visit [facility] - Internal Med [address] [facility], [place] [phone] Nikia Fishman APRN-CNP [address] [phone] Scheduled Procedures Name Priority Associated Diagnoses [...] documented as of this encounter Care Teams Extension Agent Relationship Specialty Start Date End Date Nikia Fishman APRN-CNP [address] [place] [phone] PCP - General Nurse Practitioner 10/23/23 Pacheco Hyman MD [employer] Teacher/Oncologist Hematology and Oncology 03/21/19 Allegra Mejias APRN-SUPERVISOR PHOSPHATIC FERTILIZER [address] [address] Advance Practice Nurse Hematology and Oncology 03/21/19 Rickie Dejesus MD [address] [place] [address] Cable Installation Manager Pulmonary Disease 11/28/23 documented as of this encounter
--- OUTSIDE RECORDS SUMMARY | 2025-02-21 16:35 | XMS_ITS | Encounter Summary ---
Author Organization [facility] Address [address] [place] [address] Care Team Providers Care Soaker Helper Name Role Phone Pacheco Hyman MD Unavailable [phone] Allegra Mejias FIBERGLASS AUTOBODY REPAIRER-RAILROAD YARD WORKER Unavailable Nikia Fishman FIBERGLASS AUTOBODY REPAIRER-RAILROAD YARD WORKER Primary Care Provider + Rickie Dejesus MD Unavailable Reason for Visit * Reason Onset Date Comments MEDICATION REFILL 01/04/2024 Encounter Details Date Type Department Care Team (Late st Contact Info) Description 01/04/2024 Refill [facility] - GI [address] [place] [address], [place] [phone] Brian Wheeler MD [address] [place] [address] OF GASTROENTEROLOGY [place], [place] [phone] MEDICATION REFILL Social History Tobacco Use Types [...] Recorded Patient Health Questionnaire-2 Score 0 11/30/2023 [facility] [place] of Occupat ional Health - Occupational Stress [...] place to sleep or slept in a intermediate (including now)? 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 Not on johanna [...] AM CDT Office Visit [facility] - Hematology/Oncol [facility] [place] [address] [place] [address] Lioda Veras MD [address] [place] [phone] 03/26/2025 3:40 PM CDT Appointment [facility] CAT SCAN [address] [place] [phone] Brian Wheeler MD [address] [place] [address] 2[address] [facility] [place] [address] 04/08/2025 10:00 AM CDT Office Visit [facility] - Dermatology [address] [place] [address], [place] [phone] [place] [address] [place] [address] 3L [place] [phone] 04/27/2025 8:30 AM CDT Office Visit [facility] [place] [address] [place] [address] [place] [address] Brian Wheeler MD [address] [place] [address] [address] [place] [address] 05/07/2025 11:00 AM CDT Hospital Encounter [facility] ENDOSCOPY [address] [place] [address] Stas Aceves MD [address] [place] [phone] Surgery General 05/07/2025 11:00 AM CDT - 05/07/2025 12:00 PM CDT Surgery [facility] ENDOSCOPY [address] [place] [phone] Stas Aceves MD [address] [place] [phone] ENDOSCOPIC RETROGRADE CHOLANGIOPANCREATOGRAPHY (ERCP) 05/11/2025 6:30 AM CDT Appointment [facility] MRI [address] [place] [address] Brian Wheeler MD [address] [place] [address] [address] [place] [address] 05/21/2025 11:00 AM CDT Hospital Encounter [facility] ENDOSCOPY [address] [place] [phone] Brian Wheeler MD [address] [place] [address] [address] [place] [address] Surgery General 05/21/2025 11:00 AM CDT - 05/21/2025 11:45 AM CDT Surgery [facility] ENDOSCOPY [address] [place] [phone] Brian Wheeler MD [address] [place] [address] [address] [facility] [place] [address] COLONOSCOPY SCREEN w/ wheeler 06/03/2025 9:00 AM CDT Office Visit [facility] - Internal Med [address] [place] [address], [place] [phone] Nikia Fishman APRN-CNP [address] [place] [phone] Scheduled Procedures Name Priority Associated Diagnoses [...] documented as of this encounter Care Teams Soaker Helper Relationship Specialty Start Date End Date Nikia Fishman APRN-RAILROAD YARD WORKER [address] [place] [phone] PCP - General Nurse Practitioner 10/23/23 Pacheco Hyman MD Ruby Rails Developer/Oncologist Hematology and Oncology 03/21/19 Allegra Mejias, FIBERGLASS AUTOBODY REPAIRER-RAILROAD YARD WORKER [address] [address] Advance Practice Nurse Hematology and Oncology 03/21/19 Rickie Dejesus MD [address] [address] Tail Dogger Pulmonary Disease 11/28/23 documented as of this encounter
[2025-02-21] MEDS: HYDROmorphone HCL INJ (*CRX) 2 MG/ML VIAL 0.5 MG IV PUSH ×2 (17:16→19:52)
--- NOTE | 2025-02-21 23:41 | PC.NURSE ---
Please call if EMS gets pushed back again, as we can not hold a bed all night.
[2025-02-22 00:48] VITALS: BP 101/64; PULSE 71; RESP 14; O2SAT 97
== END 2025-02-22 00:51 | disposition short-term general hospital (02) ==
PROVIDERS: Emergency Medicine; Emergency Provider Physician Assistant
DX: K29.00 Acute gastritis without bleeding (principal); Z94.4 Liver transplant status; K83.8 Other specified diseases of biliary tract; I72.8 Aneurysm of other specified arteries; R91.1 Solitary pulmonary nodule
CPT/HCPCS: 36415; 71275; 74177; 80053; 81003; 83605; 83690; 84484; 85025; 85380; 85610; 85730; 93005; 96374; 96375; 96376; 99285; J1171; J2270; J2405; Q9967